=== PATIENT | male | born 1940 | race Caucasian/White ===

== ENCOUNTER 2020-08-13 07:30 | Inpatient (IN) | payer MEDICARE, MEDICAID, SELFPAY ==
[2020-08-13] VITALS (7 sets, daily range): BP systolic 110–153; BP diastolic 41–70; PULSE 77–108; RESP 15–17; TEMP 36.4–37.9; O2SAT 91–100; BMI 26.0
--- NOTE | 2020-08-13 07:42 | ECG_ITS ---
Test Reason : weakness Blood Pressure : / mmHG Vent. Rate : 108 BPM Atrial Rate : 108 BPM P-R Int : 148 ms QRS Dur : 080 ms QT Int : 344 ms P-R-T Axes : 078 092 082 degrees QTc Int : 460 ms Poor data quality Sinus tachycardia Right axis deviation Cannot rule out septal infarct Abnormal ECG When compared to the previous EKG of Criteria for septal infarct present Referred By: Keisha Goodwin Electronically Signed By:Jimmy Salmeron
--- NOTE | 2020-08-13 07:43 | XR_ITS ---
EXAMINATION: XR CHEST CLINICAL INFORMATION: Fever COMPARISON: 03/25/2020 TECHNIQUE: Frontal view of the chest was obtained. FINDINGS: No significant abnormality is noted involving the heart, lungs, mediastinum, bony thorax or soft tissues. XR/XR chest 1V IMPRESSION: Unremarkable examination.
--- NOTE | 2020-08-13 07:48 | ED_ITS ---
HPI - Skin/Abscess/Foreign Bdy General Chief complaint: Skin/Abscess/Foreign Body Stated complaint: CELLULITIS W/FEVER Time Seen by Provider: 08/13/20 07:41 Source: patient, EMS and old records reviewed Limitations: altered mental status (cognitive impairment) History of Present Illness HPI narrative: patient on keflex since 08/11 for facial cellulitis, this AM noted fevers and increased R sided facial swelling, more fatigued MD complaint: rash and other (fever) Onset (ago): day(s) (3) Tetanus up to date: yes Location: face Severity: moderate Quality: constant Pain Consistency: constant Relieving factors: none Exacerbating factors: none Context: none Associated symptoms: fever, chills and malaise Treatments prior to arrival: antibiotic (cephalexin started 08/11) Related Data Home Medications Medication Instructions Recorded Confirmed acetaminophen 325 mg PO BID 08/13/20 08/13/20 albuterol sulfate [ProAir HFA] 2 puff INHALATION BID 08/13/20 08/13/20 aspirin 81 mg PO DAILY 08/13/20 08/13/20 atorvastatin [Lipitor] 40 mg PO BEDTIME 08/13/20 08/13/20 cephalexin [Keflex] 500 mg PO TID 08/13/20 08/13/20 docusate sodium [Colace] 200 mg PO DAILY 08/13/20 08/13/20 glycerin [Artificial Tears drp OPHTHALMIC (EYE) PRN 08/13/20 (glycerin)] insulin aspart U-100 1 sliding scale dose SUBCUT 08/13/20 08/13/20 USEASDIRECTD lisinopril 10 mg PO DAILY 08/13/20 08/13/20 melatonin 3 mg PO BEDTIME 08/13/20 08/13/20 memantine 10 mg PO BID 08/13/20 08/13/20 metformin 1,000 mg PO BID 08/13/20 08/13/20 nutritional supplements [Adonay] ea PO 08/13/20 senna 8.6 mg PO DAILY 08/13/20 08/13/20 sertraline 75 mg PO DAILY 08/13/20 08/13/20 Allergies Allergy/AdvReac Type Severity Reaction Status Date / Time No Known Allergies Allergy Intermediate UNKNOWN Verified 08/13/20 07:56 [NO KNOWN ALLERGIES] Review of Systems Review of Systems: ROS unable to be obtained due to cognitive impairment [facility] Past Medical History Attestation statement: The following information was validated with the patient. Source: old records reviewed Medical History Cerebral infarction Cognitive communication deficit COPD (chronic obstructive pulmonary disease) Depressive disorder Diabetes Dysphagia Hearing loss Hemiplegia HTN (hypertension) Hyperlipemia Vascular dementia Social History Social History Housing: Alf Alcohol intake: unknown Smoking Status: Unknown if ever smoked Use of substances other than those prescribed or required for medical reasons: Unknown Advance Directives: No Advance Directives Information Provided: No Physical Exam Vital Signs: Vital Signs: Last Vital Signs Temp 100.3 F 08/13/20 07:47 Pulse 108 H 08/13/20 07:47 Resp 16 08/13/20 07:47 BP 126/57 L 08/13/20 07:47 Pulse Ox 91 L 08/13/20 07:47 Body Mass Index 26.0 Appearance: Alert. Oriented X2. No acute distress. Flat affect Eyes: Pupils equal, round and reactive to light. ENT: Pharynx normal. R side of face red raised confluent area from scalp to lower chin no abscess noted, no vesicles Neck: Normal inspection. Neck supple. CVS: Normal heart rate and rhythm. Pulses normal. Respiratory: No respiratory distress. Breath sounds normal. Abdomen: Soft and non-tender. Skin: Skin warm and dry. Normal skin color. Normal skin turgor. Extremities: No lower extremity edema. No calf ttp Neuro: Oriented X 3. No motor deficit. No sensory deficit. Course Course Course Narrative: will admit for further workup MDM - Skin/Abscess/Foreign Bdy MDM Narrative Medical decision making narrative: 80 yo male with hx of DM, CVA L sided weakness chronic, COPD here with fevers and worsening L sided facial cellulitis already on cephalexin since 08/11 at this time will need labs, UA, cultures, CXR, start IV zosyn/vancomycin and likely will need admission for IV antibiotics pending labs and workup Lab Data Result diagrams: 08/13/20 08:04 08/13/20 08:04 Labs: Lab Results 08/13/20 08/13/20 08/13/20 Range/Units 08:04 08:04 08:05 WBC 15.8 H (4.8-10.8) X10*3/uL RBC 5.27 (4.60-5.80) X10*6/uL Hgb 14.8 (14.0-18.0) g/dl Hct 46.3 (42-52) % MCV 87.9 (80-98) fL MCH 28.1 (27.0-33.0) pg MCHC 32.0 (31.0-36.0) g/dl RDW 13.1 (11.0-16.0) % Plt Count 233 (160-400) X10*3/uL MPV 10.7 (9.4-12.4) fL Immature Gran % (Auto) 0.5 H (0.0-0.4) % Neut % (Auto) 79.2 H (45-73) % Lymph % (Auto) 9.1 L (20-40) % [place] % (Auto) 10.9 (2-11) % Eos % (Auto) 0.0 (0-4) % Baso % (Auto) 0.3 (0-2) % Lymph # (Auto) 1.4 (1.2-4.9) X10*3/uL [place] # (Auto) 1.7 H (0.1-1.2) X10*3/uL Eos # (Auto) 0.0 (0.0-0.4) X10*3/uL Baso # (Auto) 0.0 (0.0-0.2) X10*3/uL Abs Immat Gran (auto) 0.08 H (0.00-0.03) X10*3/uL Absolute Neuts (auto) 12.5 H (2.0-8.3) X10*3/uL Absolute Nucleated RBC 0.000 (0.0-0.012) X10*3/uL Nucleated RBC % (auto) 0.0 (0.0-0.2) /100WBC Smear Tech's Comments VERIFIED PT (10.8-13.0) SEC INR (0.9-1.1) APTT (24.1-38.0) SEC Sodium 138 (135-145) mmol/L Potassium 3.8 (3.3-5.1) mmol/l Chloride 102 (96-108) mmol/L Carbon Dioxide 25 (22-29) mmol/L Anion Gap 15 (12-20) BUN 21 H (9-16) mg/dL Creatinine 0.82 (0.5-1.4) mg/dL Estim Creat Clear Calc 71.8 Estimated GFR > 60 Random Glucose 230 H (60-115) mg/dL Lactic Acid 1.3 (0.5-2.0) mmol/L Calcium 8.7 (8.4-10.2) mg/dL Magnesium (1.6-2.6) mg/dL Total Bilirubin (0.0-1.0) mg/dL Direct Bilirubin (0.0-0.5) mg/dL AST (5-37) U/L ALT (0-40) U/L Alkaline Phosphatase (39-117) U/L Total Protein (6.5-8.0) g/dL Albumin (3.5-5.0) g/dL COVID-19 ([facility]) (Negative) COVID-19 Clin Com 08/13/20 08/13/20 08/13/20 Range/Units 08:05 08:05 08:17 WBC (4.8-10.8) X10*3/uL RBC (4.60-5.80) X10*6/uL Hgb (14.0-18.0) g/dl Hct (42-52) % MCV (80-98) fL MCH (27.0-33.0) pg MCHC (31.0-36.0) g/dl RDW (11.0-16.0) % Plt Count (160-400) X10*3/uL MPV (9.4-12.4) fL Immature Gran % (Auto) (0.0-0.4) % Neut % (Auto) (45-73) % Lymph % (Auto) (20-40) % [place] % (Auto) (2-11) % Eos % (Auto) (0-4) % Baso % (Auto) (0-2) % Lymph # (Auto) (1.2-4.9) X10*3/uL [place] # (Auto) (0.1-1.2) X10*3/uL Eos # (Auto) (0.0-0.4) X10*3/uL Baso # (Auto) (0.0-0.2) X10*3/uL Abs Immat Gran (auto) (0.00-0.03) X10*3/uL Absolute Neuts (auto) (2.0-8.3) X10*3/uL Absolute Nucleated RBC (0.0-0.012) X10*3/uL Nucleated RBC % (auto) (0.0-0.2) /100WBC Smear Tech's Comments PT 13.4 H (10.8-13.0) SEC INR 1.1 (0.9-1.1) APTT 31.9 (24.1-38.0) SEC Sodium (135-145) mmol/L Potassium (3.3-5.1) mmol/l Chloride (96-108) mmol/L Carbon Dioxide (22-29) mmol/L Anion Gap (12-20) BUN (9-16) mg/dL Creatinine (0.5-1.4) mg/dL Estim Creat Clear Calc Estimated GFR Random Glucose (60-115) mg/dL Lactic Acid (0.5-2.0) mmol/L Calcium (8.4-10.2) mg/dL Magnesium 1.7 (1.6-2.6) mg/dL Total Bilirubin 0.9 (0.0-1.0) mg/dL Direct Bilirubin 0.4 (0.0-0.5) mg/dL AST 11 (5-37) U/L ALT 6 (0-40) U/L Alkaline Phosphatase 106 (39-117) U/L Total Protein 6.2 L (6.5-8.0) g/dL Albumin 3.8 (3.5-5.0) g/dL COVID-19 ([facility]) Negative (Negative) COVID-19 Clin Com See Note ECG Data Attestation: I personally reviewed and interpreted this ECG as follows: ECG interpretation date: 08/13/20 ECG interpretation time: 08:05 Interpretation: Rate: 109 Rhythm: sinus tachycardia [place]: rightward Normal P waves. Normal KAUR. Normal QRS complex. ST T wave : normal , no ARABELLA qTC: normal prior studies: artifact noted, no ischemia The study has been interpreted contemporaneously by me. . Discharge Plan Discharge Clinical Impression: Cellulitis, Leukocytosis Patient Disposition: Admitted As Inpatient Prescriptions: No Action acetaminophen 325 mg Tablet 325 mg PO BID RF: 0 atorvastatin [Lipitor] 40 mg Tablet 40 mg PO BEDTIME RF: 0 melatonin 3 mg Tablet 3 mg PO BEDTIME RF: 0 Adonay Powder PO RF: 0 insulin aspart U-100 100 unit/mL Solution 1 sliding scale dose SUBCUT USEASDIRECTD RF: 0 cephalexin [Keflex] 500 mg Capsule 500 mg PO TID RF: 0 metformin 1,000 mg Tablet 1,000 mg PO BID RF: 0 lisinopril 10 mg Tablet 10 mg PO DAILY RF: 0 docusate sodium [Colace] 100 mg Capsule 200 mg PO DAILY RF: 0 sertraline 25 mg Tablet 75 mg PO DAILY RF: 0 aspirin 81 mg Tablet,Chewable 81 mg PO DAILY RF: 0 albuterol sulfate [ProAir HFA] 90 mcg/actuation Hfa Aerosol Inhaler 2 puff INHALATION BID RF: 0 Artificial Tears (glycerin) Drops OPHTHALMIC (EYE) PRN (Reason: Dry Eyes) RF: 0 memantine 10 mg Tablet 10 mg PO BID RF: 0 senna 8.6 mg Capsule 8.6 mg PO DAILY RF: 0
[2020-08-13 08:14] LABS: Basophils Percent Auto 0.3 % (0-2); Hematocrit 46.3 % (42-52); Hemoglobin 14.8 g/dl (14.0-18.0); Imm Gran Abs Auto 0.08 X10*3/uL (0.00-0.03); Imm Gran Pct Auto 0.5 % (0.0-0.4); Lymphocytes Absolute Auto 1.4 X10*3/uL (1.2-4.9); Lymphocytes Percent Auto 9.1 % (20-40); MANUAL DIFF FLAG SCAN; Mean Corpuscular Hemoglobin 28.1 pg (27.0-33.0); Mean Corpuscular Volume 87.9 fL (80-98); Mean Platelet Volume 10.7 fL (9.4-12.4); Monocytes Absolute Auto 1.7 X10*3/uL (0.1-1.2); Monocytes Percent Auto 10.9 % (2-11); Neutrophils Absolute Auto 12.5 X10*3/uL (2.0-8.3); Neutrophils Percent Auto 79.2 % (45-73); Platelet Count 233 X10*3/uL (160-400); Red Blood Count 5.27 X10*6/uL (4.60-5.80); Red Cell Distribution Width 13.1 % (11.0-16.0); SCAN SMEAR FLAG 1; White Blood Count 15.8 X10*3/uL (4.8-10.8)
[2020-08-13 08:30] LABS: INTERNATIONAL NORM RATIO 1.1 (0.9-1.1); Prothrombin Time 13.4 SEC (10.8-13.0)
[2020-08-13] MEDS: 0.9 % Sodium Chloride 1,000 ML 999 ML IVCONT (08:31)
[2020-08-13 08:32] LABS: Partial Thromboplastin Time 31.9 SEC (24.1-38.0)
[2020-08-13] MEDS: Piperacillin Sodium/Tazobactam 3.375 GM in 0.9 % Sodium Chloride 50 ML IV (08:32)
[2020-08-13 08:36] LABS: Lactic Acid 1.3 mmol/L (0.5-2.0)
[2020-08-13 08:39] LABS: Anion Gap 15 (12-20); Blood Urea Nitrogen 21 mg/dL (9-16); Calcium 8.7 mg/dL (8.4-10.2); Carbon Dioxide 25 mmol/L (22-29); Chloride 102 mmol/L (96-108); Creatinine Clr Calc Pharmacy 71.8; Estimated Glomerular Filt Rate > 60; Glucose Random 230 mg/dL (60-115); Potassium 3.8 mmol/l (3.3-5.1); Sodium 138 mmol/L (135-145)
[2020-08-13 08:42] LABS: Alanine Aminotransferase 6 U/L (0-40); Albumin Level 3.8 g/dL (3.5-5.0); Alkaline Phosphatase 106 U/L (39-117); Aspartate Amino Transferase 11 U/L (5-37); Bilirubin Direct 0.4 mg/dL (0.0-0.5); Bilirubin Total 0.9 mg/dL (0.0-1.0); Magnesium 1.7 mg/dL (1.6-2.6); Total Protein 6.2 g/dL (6.5-8.0)
[2020-08-13 08:43] LABS: SLIDE REVIEW VERIFIED
[2020-08-13 08:46] LABS: COVID-19 Test Negative (Negative)
[2020-08-13] MEDS: vancomycin HCL 1,000 MG in 0.9 % Sodium Chloride 250 ML 270 MG IV (09:20)
--- NOTE | 2020-08-13 09:41 | PC.NURSE ---
Saline bolus completed, Vanco started. Pt now with eyes open, answering some questions asked. Med rec completed. BP stable
--- NOTE | 2020-08-13 12:44 | PM.IMHP ---
History of Present Illness Date of Service: 08/13/20 <Amber Barnes NP - Last Filed: 08/16/20 09:34> Chief Complaint: Facial cellulitis <Amber Barnes NP - Last Filed: 08/16/20 09:34> 80 year old man presenting from [facility] with redness and swelling to the right side of his face. He did not answer questions regarding the circumstances or presentation. He did have leukocytosis without fever, or noted abscess in his oral cavity or surrounding facial area. He was treated with Ceftriaxone for facial cellulitis. <Amber Barnes NP - Last Filed: 08/16/20 09:34> Review of Systems Review of Systems: Yes Unobtainable due to mental status <Amber Barnes NP - Last Filed: 08/16/20 09:34> FORMERLY [facility], [facility]–1983 Medical History: Medical History Cerebral infarction Cognitive communication deficit COPD (chronic obstructive pulmonary disease) Depressive disorder Diabetes Dysphagia Hearing loss Hemiplegia HTN (hypertension) Hyperlipemia Vascular dementia <Amber Barnes NP - Last Filed: 08/16/20 09:34> Social History: Social History Household Members: Caregiver Housing: Custodial Alcohol intake: unknown Smoking Status: Unknown if ever smoked Use of substances other than those prescribed or required for medical reasons: Refusing to respond Currently Displaying Signs/Symptoms of Drug Intoxication Withdrawal: No Advance Directives: No Advance Directives Information Provided: No Do you have thoughts of harming others: None Do you have a plan to hurt others: No Plan Recently lost weight without trying: Unsure service: No Current occupational status: disabled <Amber Barnes NP - Last Filed: 08/16/20 09:34> Meds Allergies/Adverse reactions: Allergies Allergy/AdvReac Type Severity Reaction Status Date / Time No Known Allergies Allergy Intermediate UNKNOWN Verified 08/13/20 07:56 [NO KNOWN ALLERGIES] <Amber Barnes NP - Last Filed: 08/16/20 09:34> Home medications: Home Medications Medication Instructions Recorded Confirmed Type acetaminophen 325 mg PO BID 08/13/20 08/13/20 History albuterol sulfate [ProAir HFA] 2 puff INHALATION BID 08/13/20 08/13/20 History aspirin 81 mg PO DAILY 08/13/20 08/13/20 History atorvastatin [Lipitor] 40 mg PO BEDTIME 08/13/20 08/13/20 History docusate sodium [Colace] 200 mg PO DAILY 08/13/20 08/13/20 History glycerin drp OPHTHALMIC (EYE) PRN 08/13/20 History insulin aspart U-100 1 sliding scale dose SUBCUT 08/13/20 08/13/20 History USEASDIRECTD lisinopril 10 mg PO DAILY 08/13/20 08/13/20 History melatonin 3 mg PO BEDTIME 08/13/20 08/13/20 History memantine 10 mg PO BID 08/13/20 08/13/20 History metformin 1,000 mg PO BID 08/13/20 08/13/20 History nutritional supplements ea PO 08/13/20 History senna 8.6 mg PO DAILY 08/13/20 08/13/20 History sertraline 75 mg PO DAILY 08/13/20 08/13/20 History <Amber Barnes NP - Last Filed: 08/16/20 09:34> Physical Exam Vital Signs and Narrative: Vital Signs: Last Vital Signs Temp 97.6 F 08/13/20 11:47 Pulse 89 08/13/20 11:47 Resp 16 08/13/20 11:47 BP 153/60 H 08/13/20 11:47 Pulse Ox 99 08/13/20 11:47 Body Mass Index 26.0 <Amber Barnes NP - Last Filed: 08/16/20 09:34> Appearing in pain head is normocephalic atraumatic, erythema and mild edema noted to right side of face, no abscess or papules noted. eyes pupils are PERRLA sclera is anicteric mouth throat mucous membranes are intact and moist neck is supple with some superficial cervical lymphedenopathy lung sounds are clear to auscultation heart regular rate rhythm, clear S1, S2 positive bowel sounds, abdomen is soft, nontender neuro patient is alert with baseline cognitive impairment <Amber Barnes NP - Last Filed: 08/16/20 09:34> Results Labs CBC and Chem 7: : 08/15/20 09:36 08/15/20 09:36 <Amber Barnes NP - Last Filed: 08/16/20 09:34> Labs: Laboratory Results - last 24 hr 08/13/20 08/13/20 08/13/20 08:04 08:04 08:05 MCV 87.9 MCH 28.1 MCHC 32.0 RDW 13.1 Plt Count 233 MPV 10.7 Immature Gran % (Auto) 0.5 H Neut % (Auto) 79.2 H Lymph % (Auto) 9.1 L [place] % (Auto) 10.9 Eos % (Auto) 0.0 Baso % (Auto) 0.3 Lymph # (Auto) 1.4 [place] # (Auto) 1.7 H Eos # (Auto) 0.0 Baso # (Auto) 0.0 Abs Immat Gran (auto) 0.08 H Absolute Neuts (auto) 12.5 H Absolute Nucleated RBC 0.000 Nucleated RBC % (auto) 0.0 Smear Tech's Comments VERIFIED PT INR APTT Anion Gap 15 Creatinine 0.82 Estim Creat Clear Calc 71.8 Estimated GFR > 60 Random Glucose 230 H Lactic Acid 1.3 Calcium 8.7 Magnesium Total Bilirubin Direct Bilirubin AST ALT Alkaline Phosphatase Total Protein Albumin COVID-19 ([facility]VNG) COVID-19 Clin Com 08/13/20 08/13/20 08/13/20 08:05 08:05 08:17 MCV MCH MCHC RDW Plt Count MPV Immature Gran % (Auto) Neut % (Auto) Lymph % (Auto) [place] % (Auto) Eos % (Auto) Baso % (Auto) Lymph # (Auto) [place] # (Auto) Eos # (Auto) Baso # (Auto) Abs Immat Gran (auto) Absolute Neuts (auto) Absolute Nucleated RBC Nucleated RBC % (auto) Smear Tech's Comments PT 13.4 H INR 1.1 APTT 31.9 Anion Gap Creatinine Estim Creat Clear Calc Estimated GFR Random Glucose Lactic Acid Calcium Magnesium 1.7 Total Bilirubin 0.9 Direct Bilirubin 0.4 AST 11 ALT 6 Alkaline Phosphatase 106 Total Protein 6.2 L Albumin 3.8 COVID-19 ([facility]VNG) Negative COVID-19 Clin Com See Note <Amber Barnes NP - Last Filed: 08/16/20 09:34> Imaging Radiologist's Impressions: Impressions Chest X-Ray 08/13/20 07:43 IMPRESSION: Unremarkable examination. <Amber Barnes NP - Last Filed: 08/16/20 09:34> Assessment and Plan (1) Cellulitis: Qualifiers: Site of cellulitis: face Qualified Code(s): L03.211 - Cellulitis of face <Amber Barnes NP - Last Filed: 08/16/20 09:34> Status: Resolved <Amber Barnes NP - Last Filed: 08/16/20 09:34> 80 year old man admitted with facial cellulitis Facial cellulitis. Vancomycin and zosyn, no sepsis. Follow cultures. Warm compress, pain management Diabetes. Sliding scale, ADA diet, metformin. Hypertension. Continue Lisinopril HLD. Continue aspirin and statin DVT Prophylaxis with Lovenox. Discussed with Dr. Bermeo Full code. <Amber Barnes NP - Last Filed: 08/16/20 09:34>
--- NOTE | 2020-08-13 15:27 | PM.EVENT ---
Event Note Date of Service: 08/13/20 Event Note: Patient seen and examined. Case discussed with Amber Barnes NP. Agree with her history and physical. 80 yo M from [facility] presenting with R facial erythema not resolved with PO Kelfex at SNF. Will admit for IV antibiotics. ID consult if not improved 1-2 days.
[2020-08-13] MEDS: cefTRIAXone sodium 1 GM in 0.9 % Sodium Chloride 50 ML IV (16:27)
[2020-08-13] MEDS: 0.9 % Sodium Chloride Flush 3 ML SYRINGE IVFLUSH ×2 (16:27→21:22)
[2020-08-13] MEDS: Enoxaparin Sodium 40 MG/0.4 ML SYRINGE SUBCUT (16:30)
[2020-08-13 16:42] LABS: Glucose, Whole Blood 177 mg/dL (60-115)
[2020-08-13] MEDS: Insulin Lispro 100 UNIT/ML 3 ML VIAL SUBCUT ×2 (17:56→21:22)
[2020-08-13] MEDS: metFORMIN HCl 1,000 MG TABLET 1000 MG PO (17:56)
[2020-08-13 21:08] LABS: Glucose, Whole Blood 205 mg/dL (60-115)
[2020-08-13] MEDS: Melatonin 3 MG TABLET PO (21:22)
[2020-08-13] MEDS: Atorvastatin Calcium 40 MG TABLET PO (21:22)
[2020-08-13] MEDS: Memantine HCl 10 MG TABLET PO (21:22)
[2020-08-14 04:04] VITALS: BP 151/79; PULSE 76; RESP 16; TEMP 36.3; O2SAT 95
[2020-08-14 06:53] LABS: MANUAL DIFF FLAG NO
[2020-08-14 06:55] VITALS: BP 151/69; PULSE 85; RESP 18; TEMP 37; O2SAT 94
[2020-08-14 07:09] LABS: Glucose, Whole Blood 161 mg/dL (60-115)
[2020-08-14 07:09] LABS: Basophils Percent Auto 0.3 % (0-2); Eosinophils Absolute Auto 0.3 X10*3/uL (0.0-0.4); Eosinophils Percent Auto 2.1 % (0-4); Hematocrit 43.8 % (42-52); Hemoglobin 13.6 g/dl (14.0-18.0); Imm Gran Abs Auto 0.06 X10*3/uL (0.00-0.03); Imm Gran Pct Auto 0.5 % (0.0-0.4); Lymphocytes Absolute Auto 1.6 X10*3/uL (1.2-4.9); Lymphocytes Percent Auto 12.6 % (20-40); Mean Corpuscular HGB Conc 31.1 g/dl (31.0-36.0); Mean Corpuscular Hemoglobin 28.1 pg (27.0-33.0); Mean Corpuscular Volume 90.5 fL (80-98); Monocytes Absolute Auto 1.2 X10*3/uL (0.1-1.2); Monocytes Percent Auto 9.1 % (2-11); Neutrophils Absolute Auto 9.5 X10*3/uL (2.0-8.3); Neutrophils Percent Auto 75.4 % (45-73); Platelet Count 218 X10*3/uL (160-400); Red Blood Count 4.84 X10*6/uL (4.60-5.80); Red Cell Distribution Width 13.2 % (11.0-16.0); White Blood Count 12.7 X10*3/uL (4.8-10.8)
[2020-08-14 07:24] LABS: Anion Gap 13 (12-20); Blood Urea Nitrogen 18 mg/dL (9-16); Calcium 8.6 mg/dL (8.4-10.2); Carbon Dioxide 28 mmol/L (22-29); Chloride 103 mmol/L (96-108); Creatinine Clr Calc Pharmacy 80.7; Estimated Glomerular Filt Rate > 60; Glucose Random 164 mg/dL (60-115); Potassium 3.8 mmol/l (3.3-5.1); Sodium 140 mmol/L (135-145)
[2020-08-14] MEDS: Insulin Lispro 100 UNIT/ML 3 ML VIAL SUBCUT ×4 (07:49→20:50)
[2020-08-14] MEDS: Aspirin 81 MG TAB.CHEW PO (07:51)
[2020-08-14] MEDS: metFORMIN HCl 1,000 MG TABLET 1000 MG PO ×2 (07:51→16:55)
[2020-08-14] MEDS: Sertraline HCL 25 MG TABLET 75 MG PO (07:52)
[2020-08-14] MEDS: Memantine HCl 10 MG TABLET PO ×2 (07:52→20:50)
[2020-08-14] MEDS: lisinopriL 10 MG TABLET PO (07:52)
--- NOTE | 2020-08-14 08:20 | HO.PM.IMPN ---
Subjective Subjective Date of Service: 08/14/20 Interval History: seen and examined this AM feels lousy but looks okay. eating breakfast ROS gen - +malaise [facility] - no cp lungs - no sob abd - no n/v Physical Exam Vital Signs: Vital Signs: Last Vital Signs Temp 98.6 F 08/14/20 06:55 Pulse 85 08/14/20 06:55 Resp 18 08/14/20 06:55 BP 151/69 H 08/14/20 06:55 Pulse Ox 94 08/14/20 06:55 Body Mass Index 26.0 Const: Other: General - no acute distress, appears comfortable Cardiovascular - regular rate and rhythm, S1-S2 Lungs - normal respiratory effort, clear to auscultation bilaterally, no wheezing Abdomen - soft, nontender, no rebound or guarding Extremities - no edema bilaterally Neuro - awake and alert, no focal deficits Skin - R facial erythema with demarcation -- significantly improved compared to yesterday HENMT: Head images: 1. erythema with clear demarcation Objective Data Current Medications Generic Name Dose Route Start Last Admin Trade Name Oswaldoq PRN Reason Stop Dose Admin Acetaminophen 650 mg 08/13/20 14:26 Acetaminophen 325 Mg Tablet PO Q6H PRN Pain, Mild (Pain Scale 1-3) Albuterol Sulfate 2 puff 08/13/20 21:00 08/14/20 07:30 Albuterol Sulfate 90 Mcg 8 Gm Inhaler INHALE Not Given BID MATTY Aspirin 81 mg 08/14/20 09:00 08/14/20 07:51 Aspirin 81 Mg Tab.Chew PO 81 mg DAILY MATTY Administration Atorvastatin Calcium 40 mg 08/13/20 21:00 08/13/20 21:22 Atorvastatin Calcium 40 Mg Tablet PO 40 mg BEDTIME MATTY Administration Docusate Sodium 200 mg 08/14/20 09:00 08/14/20 07:57 Docusate Sodium 100 Mg Capsule PO Not Given DAILY MATTY Enoxaparin Sodium 40 mg 08/13/20 16:00 08/13/20 16:30 Enoxaparin Sodium 40 Mg/0.4 Ml Syringe SUBCUT 40 mg Q24H MATTY Administration Ceftriaxone Sodium 1 gm/ 50 mls @ 100 mls/hr 08/13/20 16:00 08/13/20 16:57 Sodium Chloride IV Infused Q24H [facility] Infusion Insulin Human Lispro 0 unit 08/13/20 16:30 08/14/20 07:49 Insulin Lispro 100 Unit/Ml 3 Ml Vial SUBCUT 2 unit QIDACHS [facility] Administration Protocol Lisinopril 10 mg 08/14/20 09:00 08/14/20 07:52 Lisinopril 10 Mg Tablet PO 10 mg DAILY MATTY Administration Protocol Melatonin 3 mg 08/13/20 21:00 08/13/20 21:22 Melatonin 3 Mg Tablet PO 3 mg BEDTIME MATTY Administration Memantine 10 mg 08/13/20 21:00 08/14/20 07:52 Memantine Hcl 10 Mg Tablet PO 10 mg BID MATTY Administration Metformin HCl 1,000 mg 08/13/20 17:00 08/14/20 07:51 Metformin Hcl 1,000 Mg Tablet PO 1,000 mg BIDWM MATTY Administration Morphine Sulfate 2 mg 08/13/20 14:26 Morphine Sulfate 2 Mg/Ml Cartridge IM Q4H PRN Pain, Severe (Pain Scale 7-10) Ondansetron HCl 4 mg 08/13/20 14:26 Ondansetron Hcl 4 Mg/2 Ml Vial IVPUSH Q8H PRN Nausea and Vomiting Pharmacy Consult 1 each 08/13/20 07:41 Consult Rx Perform Med Rec MISCELLANE ONCE PRN Consult order Pharmacy Consult 1 each 08/13/20 07:41 Consult Rx Vancomycin Dosing MISCELLANE DAILY PRN Consult order Pharmacy Consult 1 each 08/13/20 14:26 Consult Rx Vancomycin Dosing MISCELLANE DAILY PRN Consult order Sertraline HCl 75 mg 08/14/20 09:00 08/14/20 07:52 Sertraline Hcl 25 Mg Tablet PO 75 mg DAILY MATTY Administration Sodium Chloride 3 ml 08/13/20 16:00 08/13/20 21:22 0.9 % Sodium Chloride Flush 3 Ml Syringe IVFLUSH 3 ml QSHIFT MATTY Administration Labs CBC & Chem 7: 08/14/20 06:31 08/14/20 06:31 Assessment and Plan (1) Cellulitis: Status: Acute (2) Erysipelas: Status: Acute Assessment and Plan: This is a 80 yo M who is a [facility] who presented to the hospital with R-sided erythema, low grade temps and leukocytosis which had not resolved with 1 week of PO keflex at [facility]. He was admitted for further treatment. 1. Facial cellulitis / erysipelas improved continue rocephin f/u cultures 2. DM continue metformin + sliding scale diabetic diet 3. HTN bp stable, continue home meds 4. Dementia continue Namenda 5. Mood continue zoloft Full Code DVT pptx, lovenox
--- NOTE | 2020-08-14 09:25 | MHC.CM.PN ---
PATIENT IS A RESIDENT AT [facility]. DUSTIN IN HISTORICAL VISITS NO HCP OR GUARDIANSHIP IN ELECTRONIC OR PAPER CHART. CASE MANAGEMENT FOLLOWING FOR PATIENT'S RETURN TO FACILITY. CALL TO BE PLACED TO FACILITY TO DETERMINE IF ANY [facility] DIRECTIVES DOCUMENTATION EXISTS, AND TO DISCUSS IMM
--- NOTE | 2020-08-14 09:46 | MHC.CM.PN ---
POWER CONVERSATION WITH [facility], RN, SUKHDEEP ([phone]), PATIENT DOES NOT HAVE A GUARDIAN OR HCP AGENT. HE HAS AN EMERGENCY CONTACT. IF DURING STAY, PATINT IS ABLE TO COMPLETE A HCP, CM WILL ASSIST. SUKHDEEP AGREES WITH PLAN. IMM DISCUSSED WITH SUKHDEEP. COPY AND ADDENDUM IN CHART ORIGINAL WITH PATIENT'S BELONGINGS TO RETURN TO FACILITY PER REQUEST. IMM 08/14
[2020-08-14 10:50] VITALS: BP 133/68; PULSE 98; RESP 18; TEMP 36.8; O2SAT 94
[2020-08-14 10:59] LABS: Glucose, Whole Blood 189 mg/dL (60-115)
[2020-08-14] MEDS: 0.9 % Sodium Chloride Flush 3 ML SYRINGE IVFLUSH ×2 (11:39→15:22)
--- NOTE | 2020-08-14 14:34 | PC.NURSE ---
pt very restless, refusing to stay in bed or chair, not easily redirected, unsteady on his feet, continually stating I want to leave the room, generally non compliant. Incontinent of stool on the floor and urine in the bed. Spilling liquids and food on floor. canvas goods supervisor notified. sitter placed in room.
[2020-08-14] MEDS: cefTRIAXone sodium 1 GM in 0.9 % Sodium Chloride 50 ML IV (15:22)
[2020-08-14 15:42] VITALS: BP 149/79; PULSE 101; RESP 18; TEMP 37; O2SAT 95
[2020-08-14 16:50] LABS: Glucose, Whole Blood 180 mg/dL (60-115)
[2020-08-14] MEDS: Enoxaparin Sodium 40 MG/0.4 ML SYRINGE SUBCUT (16:54)
[2020-08-14 19:38] VITALS: BP 153/79; PULSE 84; RESP 18; TEMP 36.6; O2SAT 94
[2020-08-14 20:41] LABS: Vancomycin Trough < 3.0 mcg/mL (10.0-20.0)
[2020-08-14 20:44] LABS: Glucose, Whole Blood 191 mg/dL (60-115)
[2020-08-14] MEDS: Atorvastatin Calcium 40 MG TABLET PO (20:50)
[2020-08-14] MEDS: Melatonin 3 MG TABLET PO (20:50)
[2020-08-15] VITALS (8 sets, daily range): BP systolic 98–177; BP diastolic 60–78; PULSE 77–109; RESP 16–20; TEMP 36.1–36.7; O2SAT 95–99
[2020-08-15] MEDS: Albuterol Sulfate 90 MCG 8 GM INHALER 2 PUFF INHALE (07:21)
[2020-08-15] MEDS: Aspirin 81 MG TAB.CHEW PO (07:58)
[2020-08-15 07:59] LABS: Glucose, Whole Blood 185 mg/dL (60-115)
[2020-08-15] MEDS: metFORMIN HCl 1,000 MG TABLET 1000 MG PO ×2 (07:59→17:14)
[2020-08-15] MEDS: lisinopriL 10 MG TABLET PO (07:59)
[2020-08-15] MEDS: Memantine HCl 10 MG TABLET PO (07:59)
[2020-08-15] MEDS: Docusate Sodium 100 MG CAPSULE 200 MG PO (07:59)
[2020-08-15] MEDS: Sertraline HCL 25 MG TABLET 75 MG PO (08:03)
[2020-08-15] MEDS: Insulin Lispro 100 UNIT/ML 3 ML VIAL SUBCUT ×4 (08:04→21:52)
[2020-08-15] MEDS: 0.9 % Sodium Chloride Flush 3 ML SYRINGE IVFLUSH ×2 (08:07→16:23)
--- NOTE | 2020-08-15 08:45 | HO.PM.IMPN ---
Subjective Subjective Date of Service: 08/15/20 Interval History: seen and examined this AM not talking much today, eating breakfast bp low, but doesnt have symptoms Physical Exam Vital Signs: Vital Signs: Last Vital Signs Temp 97.7 F 08/15/20 07:35 Pulse 109 H 08/15/20 07:59 Resp 16 08/15/20 07:35 BP 98/61 08/15/20 07:59 Pulse Ox 96 08/15/20 07:35 Body Mass Index 26.0 Const: Other: General - no acute distress, appears comfortable Cardiovascular - regular rate and rhythm, S1-S2 Lungs - normal respiratory effort, clear to auscultation bilaterally, no wheezing Abdomen - soft, nontender, no rebound or guarding Extremities - no edema bilaterally Neuro - awake and alert, no focal deficits Skin - R facial erythema with clear demarcation -- improving daily Objective Data Current Medications Generic Name Dose Route Start Last Admin Trade Name Freq PRN Reason Stop Dose Admin Acetaminophen 650 mg 08/13/20 14:26 Acetaminophen 325 Mg Tablet PO Q6H PRN Pain, Mild (Pain Scale 1-3) Albuterol Sulfate 2 puff 08/14/20 20:00 08/15/20 07:21 Albuterol Sulfate 90 Mcg 8 Gm Inhaler INHALE 2 puff RBID MATTY Administration Aspirin 81 mg 08/14/20 09:00 08/15/20 07:58 Aspirin 81 Mg Tab.Chew PO 81 mg DAILY MATTY Administration Atorvastatin Calcium 40 mg 08/13/20 21:00 08/14/20 20:50 Atorvastatin Calcium 40 Mg Tablet PO 40 mg BEDTIME MATTY Administration Docusate Sodium 200 mg 08/14/20 09:00 08/15/20 07:59 Docusate Sodium 100 Mg Capsule PO 200 mg DAILY MATTY Administration Enoxaparin Sodium 40 mg 08/13/20 16:00 08/14/20 16:54 Enoxaparin Sodium 40 Mg/0.4 Ml Syringe SUBCUT 40 mg Q24H MATTY Administration Ceftriaxone Sodium 1 gm/ 50 mls @ 100 mls/hr 08/13/20 16:00 08/14/20 15:52 Sodium Chloride IV Infused Q24H MATTY Infusion Insulin Human Lispro 0 unit 08/13/20 16:30 08/15/20 08:04 Insulin Lispro 100 Unit/Ml 3 Ml Vial SUBCUT 2 unit QIDACHS MATTY Administration Protocol Melatonin 3 mg 08/13/20 21:00 08/14/20 20:50 Melatonin 3 Mg Tablet PO 3 mg BEDTIME MATTY Administration Memantine 10 mg 08/13/20 21:00 08/15/20 07:59 Memantine Hcl 10 Mg Tablet PO 10 mg BID MATTY Administration Metformin HCl 1,000 mg 08/13/20 17:00 08/15/20 07:59 Metformin Hcl 1,000 Mg Tablet PO 1,000 mg BIDWM MATTY Administration Morphine Sulfate 2 mg 08/13/20 14:26 Morphine Sulfate 2 Mg/Ml Cartridge IM Q4H PRN Pain, Severe (Pain Scale 7-10) Ondansetron HCl 4 mg 08/13/20 14:26 Ondansetron Hcl 4 Mg/2 Ml Vial IVPUSH Q8H PRN Nausea and Vomiting Pharmacy Consult 1 each 08/13/20 07:41 Consult Rx Perform Med Rec MISCELLANE ONCE PRN Consult order Pharmacy Consult 1 each 08/13/20 07:41 Consult Rx Vancomycin Dosing MISCELLANE DAILY PRN Consult order Pharmacy Consult 1 each 08/13/20 14:26 Consult Rx Vancomycin Dosing MISCELLANE DAILY PRN Consult order Sertraline HCl 75 mg 08/14/20 09:00 08/15/20 08:03 Sertraline Hcl 25 Mg Tablet PO 75 mg DAILY MATTY Administration Sodium Chloride 3 ml 08/13/20 16:00 08/15/20 08:07 0.9 % Sodium Chloride Flush 3 Ml Syringe IVFLUSH 3 ml QSHIFT MATTY Administration Labs CBC & Chem 7: 08/14/20 06:31 08/14/20 06:31 Microbiology Microbiology Results: Microbiology 08/13/20 08:27 Blood - Venous Blood Culture - Preliminary No growth after 24 hours. 08/13/20 08:17 Blood - Venous Blood Culture - Preliminary No growth after 24 hours. Assessment and Plan (1) Cellulitis: Status: Acute (2) Erysipelas: Status: Acute Assessment and Plan: This is a 80 yo M who is a resident of [facility] who presented to the hospital with R-sided erythema, low grade temps and leukocytosis which had not resolved with 1 week of PO keflex at [facility]. He was admitted for further treatment. 1. Facial cellulitis / erysipelas improved continue rocephin f/u cultures - negative to date 2. DM continue metformin + sliding scale diabetic diet 3. HTN BP soft, hold antihypertensives today 4. Dementia continue Namenda 5. Mood continue zoloft Full Code DVT pptx, lovenox dispo: back to [facility], anticipated next 24 hours if he continues to improve
[2020-08-15 09:44] LABS: Hematocrit 44.4 % (42-52); Hemoglobin 14.2 g/dl (14.0-18.0); Mean Corpuscular Hemoglobin 28.1 pg (27.0-33.0); Mean Corpuscular Volume 87.9 fL (80-98); Mean Platelet Volume 10.6 fL (9.4-12.4); Platelet Count 246 X10*3/uL (160-400); Red Blood Count 5.05 X10*6/uL (4.60-5.80); Red Cell Distribution Width 13.2 % (11.0-16.0); White Blood Count 11.1 X10*3/uL (4.8-10.8)
[2020-08-15 10:09] LABS: Anion Gap 12 (12-20); Blood Urea Nitrogen 13 mg/dL (9-16); Calcium 8.5 mg/dL (8.4-10.2); Carbon Dioxide 27 mmol/L (22-29); Chloride 102 mmol/L (96-108); Creatinine Clr Calc Pharmacy 86.6; Estimated Glomerular Filt Rate > 60; Glucose Random 255 mg/dL (60-115); Potassium 3.2 mmol/l (3.3-5.1); Sodium 138 mmol/L (135-145)
[2020-08-15 11:56] LABS: Glucose, Whole Blood 207 mg/dL (60-115)
[2020-08-15] MEDS: cefTRIAXone sodium 1 GM in 0.9 % Sodium Chloride 50 ML IV (16:23)
[2020-08-15] MEDS: Enoxaparin Sodium 40 MG/0.4 ML SYRINGE SUBCUT (16:24)
[2020-08-15 17:10] LABS: Glucose, Whole Blood 183 mg/dL (60-115)
[2020-08-15 20:29] LABS: Glucose, Whole Blood 164 mg/dL (60-115)
[2020-08-16 04:00] VITALS: BP 144/70; PULSE 103; RESP 18; TEMP 37.1; O2SAT 95
[2020-08-16 07:16] VITALS: BP 175/92; PULSE 111; RESP 18; TEMP 36.8; O2SAT 98
[2020-08-16 07:43] LABS: Glucose, Whole Blood 163 mg/dL (60-115)
[2020-08-16] MEDS: Insulin Lispro 100 UNIT/ML 3 ML VIAL SUBCUT ×2 (08:26→11:51)
[2020-08-16] MEDS: Docusate Sodium 100 MG CAPSULE 200 MG PO (08:27)
[2020-08-16] MEDS: metFORMIN HCl 1,000 MG TABLET 1000 MG PO (08:27)
[2020-08-16] MEDS: Sertraline HCL 25 MG TABLET 75 MG PO (08:27)
[2020-08-16] MEDS: Memantine HCl 10 MG TABLET PO (08:27)
[2020-08-16] MEDS: 0.9 % Sodium Chloride Flush 3 ML SYRINGE IVFLUSH (08:27)
[2020-08-16] MEDS: Aspirin 81 MG TAB.CHEW PO (08:27)
--- NOTE | 2020-08-16 09:20 | MHC.CM.PN ---
Updates set to [facility] [place] to coordinate pt return to them. They will need an updated Covid test. notified. Pt will DC back to [facility] [place] via S
--- NOTE | 2020-08-16 10:26 | MHC.CM.PN ---
NURSE ANIRUDH CELERY STRIPPER NOTE ELECTRONIC MEDICAL RECORD REVIEWED PATIENT IS FROM [facility] [place] . HE PRESENTED TO THE [facility] WITH CELLULITIS AND ERYSIIPALES ON THE FACE , HERRON AWAIT CX REPORTS CONTINUE IV ROCEPHIN. DISCHARGE PLAN TO RETURN BACK TO [facility] TRANSPORTATION ANTICIPATE NEED FOR [facility]
[2020-08-16 11:24] VITALS: BP 160/66; PULSE 100; RESP 18; TEMP 36.6; O2SAT 94
[2020-08-16 11:33] LABS: Glucose, Whole Blood 211 mg/dL (60-115)
[2020-08-16 12:24] LABS: COVID-19 Test Negative (Negative)
--- NOTE | 2020-08-16 13:32 | P.DS_ITS ---
DS: Providers Provider Date of admission: 08/13/20 12:47 Primary care physician: Taras Prescott DO DS: Diagnosis Discharge Diagnosis (1) Cellulitis: Status: Acute (2) Erysipelas: Status: Acute (3) Leukocytosis: Status: Acute DS: Medications Discharge Medications Home Medications: Home Medications Medication Instructions Recorded Confirmed acetaminophen 325 mg PO BID 08/13/20 08/13/20 albuterol sulfate [ProAir HFA] 2 puff INHALATION BID 08/13/20 08/13/20 aspirin 81 mg PO DAILY 08/13/20 08/13/20 atorvastatin [Lipitor] 40 mg PO BEDTIME 08/13/20 08/13/20 docusate sodium [Colace] 200 mg PO DAILY 08/13/20 08/13/20 glycerin drp OPHTHALMIC (EYE) PRN 08/13/20 insulin aspart U-100 1 sliding scale dose SUBCUT 08/13/20 08/13/20 USEASDIRECTD lisinopril 10 mg PO DAILY 08/13/20 08/13/20 melatonin 3 mg PO BEDTIME 08/13/20 08/13/20 memantine 10 mg PO BID 08/13/20 08/13/20 metformin 1,000 mg PO BID 08/13/20 08/13/20 nutritional supplements ea PO 08/13/20 senna 8.6 mg PO DAILY 08/13/20 08/13/20 sertraline 75 mg PO DAILY 08/13/20 08/13/20 Previous Rx's Medication Instructions Recorded cefuroxime axetil 500 mg PO BID #8 tab 08/16/20 DS: Summary Hospital Course Hospital Course: Admission note HPI 80 year old man presenting from [facility] with redness and swelling to the right side of his face. He did not answer questions regarding the circumstances or presentation. He did have leukocytosis without fever, or noted abscess in his oral cavity or surrounding facial area. He was treated with Ceftriaxone for facial cellulitis. Hospital course The patient was admitted to the hospital and treated with broad-spectrum IV antibiotics which was then changed to ceftriaxone the with good response over the course of hospital stay as the facial cellulitis completely resolved and he was able to participate with diet. No fever noticed since admission. to be discharged on Ceftin and doxycycline for 4 days. Time Spent with Patient Time attestation: Total time spent providing and/or coordinating discharge services: Physical Exam Vital Signs: Vital Signs: Last Vital Signs Temp 97.9 F 08/16/20 11:24 Pulse 100 08/16/20 11:24 Resp 18 08/16/20 11:24 BP 160/66 H 08/16/20 11:24 Pulse Ox 94 08/16/20 11:24 Body Mass Index 26.0 Constitutional : Alert, oriented to self, not in distress Neck : Normal inspection, Supple Cardiovascular : RRR, S1 S2, no lower extremity edema Respiratory : Good bilateral air entry, no crackles, wheezes or rhonchi Gastrointestinal: soft, lax, Normal bowel sounds, Non tender Skin : Warm/Dry, No rash Neurological : Alert & oriented to self, No focal deficit DS: Data Data Completed and Pending Labs on day of discharge: 08/13/20 07:41 Acetaminophen [Tylenol] 650 mg OH ONCE ONE Piperacillin Sodium/Tazobactam [Zosyn] 3.375 gm 0.9 % Sodium Chloride [Ns] 50 ml IV ONCE vancomycin HCL 1,000 mg 0.9 % Sodium Chloride [Ns] 250 ml IV ONCE 08/13/20 07:42 ECG 12 lead EKG Stat EKG Documentation DIRECTED 08/13/20 07:43 XR chest 1V Stat 08/13/20 07:45 0.9 % Sodium Chloride [Ns] 1,000 ml IVCONT 999 mls/hr 08/13/20 08:04 Basic Metabolic Panel Stat Complete Blood Count Auto Diff Stat SLIDE REVIEW Stat 08/13/20 08:05 COVID-19 ID NOW (Barry) Stat Lactic Acid Stat Liver Panel Stat Magnesium Stat 08/13/20 08:17 Partial Thromboplastin Time Stat Prothrombin Time INR Stat 08/13/20 08:21 Piperacillin Sodium/Tazobactam [Zosyn] 3.375 gm IV .STK-MED ONE 08/13/20 09:11 vancomycin HCL 1,000 mg .ROUTE .STK-MED ONE 08/13/20 12:44 Transfer Order Routine 08/13/20 14:26 IV insert/maintain Q4HR Intake and Output QSHIFTE Vital Signs QSHIFT 08/13/20 15:00 Piperacillin Sodium/Tazobactam [Zosyn] 3.375 gm 0.9 % Sodium Chloride [Ns] 50 ml IV Q8H 08/13/20 16:20 cefTRIAXone sodium [Rocephin] 1 gm .ROUTE .STK-MED ONE 08/13/20 16:27 Glucose, Whole Blood Routine 08/13/20 21:00 Albuterol Sulfate [Ventolin] 2 puff INHALE BID vancomycin HCL 750 mg IV Q12H 08/13/20 21:03 Glucose, Whole Blood Routine 08/14/20 06:31 Basic Metabolic Panel DAILY@0600 Complete Blood Count Auto Diff DAILY@0600 08/14/20 07:05 Glucose, Whole Blood Routine 08/14/20 09:00 lisinopriL [Zestril] 10 mg PO DAILY 08/14/20 10:54 Glucose, Whole Blood Routine 08/14/20 15:19 cefTRIAXone sodium [Rocephin] 1 gm .ROUTE .STK-MED ONE 08/14/20 16:44 Glucose, Whole Blood Routine 08/14/20 19:57 Vancomycin Trough Stat 08/14/20 20:39 Glucose, Whole Blood Routine 08/15/20 07:37 Glucose, Whole Blood Routine 08/15/20 09:36 Basic Metabolic Panel Routine Complete Blood Count no Diff Routine 08/15/20 11:30 Glucose, Whole Blood Routine 08/15/20 16:12 cefTRIAXone sodium [Rocephin] 1 gm .ROUTE .STK-MED ONE 08/15/20 16:43 Glucose, Whole Blood Routine 08/15/20 20:26 Glucose, Whole Blood Routine 08/16/20 07:25 Glucose, Whole Blood Routine 08/16/20 11:30 Glucose, Whole Blood Routine 08/16/20 11:45 COVID-19 ID NOW (Barry) Routine Laboratory Last Values WBC 11.1 X10*3/uL (4.8-10.8) H 08/15/20 09:36 RBC 5.05 X10*6/uL (4.60-5.80) 08/15/20 09:36 Hgb 14.2 g/dl (14.0-18.0) 08/15/20 09:36 Hct 44.4 % (42-52) 08/15/20 09:36 MCV 87.9 fL (80-98) 08/15/20 09:36 MCH 28.1 pg (27.0-33.0) 08/15/20 09:36 MCHC 32.0 g/dl (31.0-36.0) 08/15/20 09:36 RDW 13.2 % (11.0-16.0) 08/15/20 09:36 Plt Count 246 X10*3/uL (160-400) 08/15/20 09:36 MPV 10.6 fL (9.4-12.4) 08/15/20 09:36 Immature Gran % (Auto) 0.5 % (0.0-0.4) H 08/14/20 06:31 Neut % (Auto) 75.4 % (45-73) H 08/14/20 06:31 Lymph % (Auto) 12.6 % (20-40) L 08/14/20 06:31 Dickinson % (Auto) 9.1 % (2-11) 08/14/20 06:31 Eos % (Auto) 2.1 % (0-4) 08/14/20 06:31 Baso % (Auto) 0.3 % (0-2) 08/14/20 06:31 Lymph # (Auto) 1.6 X10*3/uL (1.2-4.9) 08/14/20 06:31 Dickinson # (Auto) 1.2 X10*3/uL (0.1-1.2) 08/14/20 06:31 Eos # (Auto) 0.3 X10*3/uL (0.0-0.4) 08/14/20 06:31 Baso # (Auto) 0.0 X10*3/uL (0.0-0.2) 08/14/20 06:31 Abs Immat Gran (auto) 0.06 X10*3/uL (0.00-0.03) H 08/14/20 06:31 Absolute Neuts (auto) 9.5 X10*3/uL (2.0-8.3) H 08/14/20 06:31 Absolute Nucleated RBC 0.000 X10*3/uL (0.0-0.012) 08/15/20 09:36 Nucleated RBC % (auto) 0.0 /100WBC (0.0-0.2) 08/15/20 09:36 Smear Tech's Comments VERIFIED 08/13/20 08:04 PT 13.4 SEC (10.8-13.0) H 08/13/20 08:17 INR 1.1 (0.9-1.1) 08/13/20 08:17 APTT 31.9 SEC (24.1-38.0) 08/13/20 08:17 Sodium 138 mmol/L (135-145) 08/15/20 09:36 Potassium 3.2 mmol/l (3.3-5.1) L 08/15/20 09:36 Chloride 102 mmol/L (96-108) 08/15/20 09:36 Carbon Dioxide 27 mmol/L (22-29) 08/15/20 09:36 Anion Gap 12 (-20) 08/15/20 09:36 BUN 13 mg/dL (9-16) 08/15/20 09:36 Creatinine 0.68 mg/dL (0.5-1.4) 08/15/20 09:36 Estim Creat Clear Calc 86.6 08/15/20 09:36 Estimated GFR > 60 08/15/20 09:36 POC Glucose 211 mg/dL (60-115) H 08/16/20 11:30 Random Glucose 255 mg/dL (60-115) H D 08/15/20 09:36 Lactic Acid 1.3 mmol/L (0.5-2.0) 08/13/20 08:05 Calcium 8.5 mg/dL (8.4-10.2) 08/15/20 09:36 Magnesium 1.7 mg/dL (1.6-2.6) 08/13/20 08:05 Total Bilirubin 0.9 mg/dL (0.0-1.0) 08/13/20 08:05 Direct Bilirubin 0.4 mg/dL (0.0-0.5) 08/13/20 08:05 AST 11 U/L (5-37) 08/13/20 08:05 ALT 6 U/L (0-40) 08/13/20 08:05 Alkaline Phosphatase 106 U/L (39-117) 08/13/20 08:05 Total Protein 6.2 g/dL (6.5-8.0) L 08/13/20 08:05 Albumin 3.8 g/dL (3.5-5.0) 08/13/20 08:05 Vancomycin Trough < 3.0 mcg/mL (10.0-20.0) L 08/14/20 19:57 COVID-19 ([facility]) Negative (Negative) 08/16/20 11:45 COVID-19 Clin Com See Note 08/16/20 11:45 Preliminary micro results at discharge 08/13/20 08:27 Blood Culture - Preliminary Blood - Venous No growth after 48 hours. 08/13/20 08:17 Blood Culture - Preliminary Blood - Venous No growth after 48 hours. Discharge Plan Discharge Patient Disposition: er [facility] Referrals: Taras Prescott DO [Primary Care Provider] - Discharge Medications: New cefuroxime axetil 500 mg tablet 500 mg PO BID Qty: 8 RF: 0 Continued acetaminophen 325 mg Tablet 325 mg PO BID RF: 0 atorvastatin [Lipitor] 40 mg Tablet 40 mg PO BEDTIME RF: 0 melatonin 3 mg Tablet 3 mg PO BEDTIME RF: 0 nutritional supplements Powder PO RF: 0 insulin aspart U-100 100 unit/mL Solution 1 sliding scale dose SUBCUT USEASDIRECTD RF: 0 metformin 1,000 mg Tablet 1,000 mg PO BID RF: 0 lisinopril 10 mg Tablet 10 mg PO DAILY RF: 0 docusate sodium [Colace] 100 mg Capsule 200 mg PO DAILY RF: 0 sertraline 25 mg Tablet 75 mg PO DAILY RF: 0 aspirin 81 mg Tablet,Chewable 81 mg PO DAILY RF: 0 albuterol sulfate [ProAir HFA] 90 mcg/actuation Hfa Aerosol Inhaler 2 puff INHALATION BID RF: 0 glycerin Drops OPHTHALMIC (EYE) PRN (Reason: Dry Eyes) RF: 0 memantine 10 mg Tablet 10 mg PO BID RF: 0 senna 8.6 mg Capsule 8.6 mg PO DAILY RF: 0 Discontinued cephalexin [Keflex] 500 mg Capsule 500 mg PO TID RF: 0 Discharge Orders: Discharge Order (Routine); Ordered 08/16/20 Ordered By: Alta Beth Diet: advance to usual diet Activity on Discharge: As tolerated Visit Report Forms: Patient Portal Discharge page Care Plan Goals: Read below Health Concerns: Read below Plan of Treatment: Treated in the hospital for facial cellulitis with IV antibiotics and good response. To continue with Ceftin for 4 more days at time of discharge.
--- NOTE | 2020-08-16 13:57 | MHC.CM.PN ---
PT BEING DISCHARGED BACK TO [facility] [place] TODAY AT 1430 [facility]IA [facility] PT DOES NOT HAVE A HCP OR [facility] IMM DELIVERED ON 08/14
== END 2020-08-16 14:51 | disposition skilled nursing facility (03) | DRG 603 ==
LOC: HO.ED 09:18 → HO.S3 13:32
PROVIDERS: Nurse Practitioner Acute Care; Admitting Provider Family Medicine; Emergency Provider Emergency Medicine; PCP Hospitalist; Visit Provider Student in an Organized Health Care Education/Training Program
DX: A46 Erysipelas (principal); L03.211 Cellulitis of face; E11.9 Type 2 diabetes mellitus without complications; I10 Essential (primary) hypertension; E78.5 Hyperlipidemia, unspecified; Z20.828 Contact with and (suspected) exposure to other viral communicable diseases; Z79.4 Long term (current) use of insulin; Z79.82 Long term (current) use of aspirin; Z79.899 Other long term (current) drug therapy
CPT/HCPCS: 36415; 71045; 80048; 80076; 80202; 82947; 83605; 83735; 85025; 85027; 85610; 85730; 87040; 87635; 93005; 96361; 96365; 96367; 99284; J0696; J1650; J2543; J3370

== ENCOUNTER 2022-02-11 13:11 | Emergency (ER) | payer MEDICARE, MEDICAID, SELFPAY ==
--- NOTE | ~2022-02-11 | XR_ITS ---
EXAMINATION: CHEST 10 LUMBAR SPINE. CLINICAL INFORMATION: Lumbar spine 3 views. Chest 2 views. COMPARISON: None TECHNIQUE: Chest 2 views. Lumbar spine 3 views. FINDINGS: Chest: Lungs are well-expanded and clear. Heart size and pulmonary vascularity is normal. There is moderate spondylosis dorsal spine. No lytic process seen. Lumbar spine: There is maintained lumbar lordosis. There is severe loss of L4-L5 and L5-S1 disc levels with mild ventral and posterior spondylosis throughout lumbar spine. No aggressive lytic or sclerotic process. No acute fracture. The paravertebral soft tissues are normal. Visualized sacrum is unremarkable. XR/XR lumbar spine 2-3V IMPRESSION: No acute cardiopulmonary process seen. Severe degenerative disc changes L4-L5 and L5-S1 disc levels. There is mild ventral and posterior spondylosis. No visible acute fracture, dislocation or lytic process seen.
--- NOTE | ~2022-02-11 | XR_ITS ---
EXAMINATION: CHEST 10 LUMBAR SPINE. CLINICAL INFORMATION: Lumbar spine 3 views. Chest 2 views. COMPARISON: None TECHNIQUE: Chest 2 views. Lumbar spine 3 views. FINDINGS: Chest: Lungs are well-expanded and clear. Heart size and pulmonary vascularity is normal. There is moderate spondylosis dorsal spine. No lytic process seen. Lumbar spine: There is maintained lumbar lordosis. There is severe loss of L4-L5 and L5-S1 disc levels with mild ventral and posterior spondylosis throughout lumbar spine. No aggressive lytic or sclerotic process. No acute fracture. The paravertebral soft tissues are normal. Visualized sacrum is unremarkable. XR/XR chest 2V IMPRESSION: No acute cardiopulmonary process seen. Severe degenerative disc changes L4-L5 and L5-S1 disc levels. There is mild ventral and posterior spondylosis. No visible acute fracture, dislocation or lytic process seen.
[2022-02-11 13:25] VITALS: BP 120/62; BP 150/90; PULSE 86; PULSE 88; RESP 16; TEMP 36.8; O2SAT 98; BMI 24.2
--- NOTE | 2022-02-11 13:38 | ED.GENADULT ---
HPI - General Adult General Chief complaint: Back Pain/Injury Stated complaint: BACK PAIN,NO INJURY PER SNF Time Seen by Provider: 02/11/22 13:38 Source: patient and EMS Mode of arrival: EMS Limitations: no limitations History of Present Illness HPI narrative: Patient is a 82 year old male presenting to the emergency department today with low back pain. Patient states that earlier he was getting up from sitting and had low back pain but it resolved. Patient denies any dizziness, lightheadedness, abdominal pain, nausea, vomiting, fever, chills, blurry vision, double vision, loss of vision, chest pain, difficulty breathing, shortness of breath, night sweats, pain with urination, increased urinary frequency, increased urinary urgency, blood in his urine or stool, syncope or a near syncopal episode, recent trauma or falls, bowel incontinence, bladder incontinence, bowel retention, bladder retention, or any other complaints at this time. Onset (ago): minute(s) Location: back Severity: mild Severity scale (1-10): 1 Quality: dull Pain Consistency: now resolved Relieving factors: none Exacerbating factors: none Associated symptoms: denies other symptoms Treatments prior to arrival: none Related Data Home Medications Medication Instructions Recorded Confirmed acetaminophen 325 mg tablet 325 mg PO BID 08/13/20 08/13/20 albuterol sulfate 90 mcg/actuation 2 puff inhalation BID 08/13/20 08/13/20 aerosol inhaler (ProAir HFA) aspirin 81 mg chewable tablet 81 mg PO DAILY 08/13/20 08/13/20 atorvastatin 40 mg tablet (Lipitor) 40 mg PO BEDTIME 08/13/20 08/13/20 docusate sodium 100 mg capsule 200 mg PO DAILY 08/13/20 08/13/20 (Colace) glycerin drp ophthalmic (eye) PRN Dry Eyes 08/13/20 insulin aspart U-100 100 unit/mL 1 sliding scale dose subcut 08/13/20 08/13/20 subcutaneous solution USEASDIRECTD lisinopril 10 mg tablet 10 mg PO DAILY 08/13/20 08/13/20 melatonin 3 mg tablet 3 mg PO BEDTIME 08/13/20 08/13/20 memantine 10 mg tablet 10 mg PO BID 08/13/20 08/13/20 metformin 1,000 mg tablet 1,000 mg PO BID 08/13/20 08/13/20 nutritional supplements ea PO 08/13/20 sennosides 8.6 mg capsule (senna) 8.6 mg PO DAILY 08/13/20 08/13/20 sertraline 25 mg tablet 75 mg PO DAILY 08/13/20 08/13/20 Previous Rx's Medication Instructions Recorded cefuroxime axetil 500 mg tablet 500 mg PO BID #8 tabs 08/16/20 doxycycline monohydrate 100 mg 100 mg PO BID #8 caps 08/16/20 capsule Allergies Allergy/AdvReac Type Severity Reaction Status Date / Time No Known Allergies Allergy Intermediate UNKNOWN Verified 08/13/20 07:56 [NO KNOWN ALLERGIES] Review of Systems Constitutional: Constitutional: Reports no additional constitutional complaints, Denies chills, Denies fever(s) and Denies night sweats Eyes: Eyes: Reports no additional eye complaints, Denies blurry vision, Denies change in vision, Denies diplopia, Denies eye discharge, Denies loss of vision and Denies eye pain ENT: Denies dizziness Cardiovascular: Cardiovascular: Reports no additional cardiovascular complaints, Denies chest pain, Denies lightheadedness, Denies Loss of Consciousness and Denies dyspnea Respiratory: Respiratory: Reports no additional respiratory complaints and Denies dyspnea Gastrointestinal: Gastrointestinal: Reports no additional gastrointestinal complaints, Denies abdominal pain, Denies melena, Denies hematochezia, Denies change in bowel habits and Denies change in stool character Genitourinary: Genitourinary: Reports no additional male genitourinary complaints, Denies hematuria, Denies oliguria, Denies difficulty urinating, Denies dysuria, Denies urinary frequency, Denies urinary hesitancy, Denies urinary incontinence and Denies urinary urgency Musculoskeletal: Musculoskeletal: Reports no additional musculoskeletal complaints, Reports back pain, Denies numbness and Denies tingling Neurologic: Denies dizziness, Denies loss of vision, Denies numbness and Denies tingling Psychiatric: Psychiatric: Reports no additional psychiatric complaints Endocrine: Endocrine: Reports no additional endocrine complaints Hematologic/Lymphatic: Hematologic/Lymphatic: Reports no additional hematologic/lymphatic complaints Allergic/Immunologic: Allergic/Immunologic: Reports no additional allergic/immunologic complaints PMFSH Past Medical History Attestation statement: The following information was validated with the patient. Source: old records reviewed Medical History Cerebral infarction Cognitive communication deficit COPD (chronic obstructive pulmonary disease) Depressive disorder Diabetes Dysphagia Hearing loss Hemiplegia HTN (hypertension) Hyperlipemia Vascular dementia Social History Social History Household Members: Caregiver Housing: Senior Care Unable to assess alcohol history related to: Refusing to respond Alcohol intake: former Patient Tobacco Use Status: Former Tobacco user Smoked in Last 30 Days: No Use of substances other than those prescribed or required for medical reasons: No Advance Directives: No Advance Directives Information Provided: No service: No Current occupational status: disabled Physical Exam ED Vital Signs: Vital Signs - 24 hr 02/11/22 13:25 Temperature 98.2 F Pulse Rate 86 Respiratory Rate 16 Blood Pressure 120/62 Pulse Oximetry 98 Oxygen Delivery Method Room Air BMI result Body Mass Index 24.2 Const General: cooperative, no acute distress, alert and awake Nutritional Appearance: well nourished Orientation/consciousness: patient oriented x3 Limitations: no limitations HENMT Head: Yes normal to inspection and Yes atraumatic Ears: hearing grossly normal bilaterally and external ears normal General nose exam: Normal external nose present, no nasal discharge noted and no epistaxis Face and sinus: Yes normal facial exam, No abrasion and No laceration Mouth: Normal oral and palatal mucosa present, no drooling and no muffled voice Eyes General: appearance normal, both eyes and all related structures Periorbital: periorbital findings normal Eyelids: Yes eyelids normal Conjunctivae: conjunctivae normal Pupils: Equal, round and reactive pupils present EOM: EOMs intact bilaterally Neck Neck: Yes normal visual inspection, Yes full ROM and Yes no lymphadenopathy Chest Chest palpation & inspection: normal inspection of the chest Resp Effort & Inspection: normal respiratory effort and able to speak in complete sentences Auscultation: clear to auscultation bilaterally Cardio Rate: regular rate Rhythm: regular rhythm GI Inspection: Yes normal to inspection General: Yes no CVA tenderness Back/Spine/Pelvis Back: no CVA tenderness Cervical Spine: normal cervical lordosis and cervical ROM normal Thoracic/Lumbar Spine: thoracic and lumbar spine normal to inspection and thoraco-lumbar ROM normal Neuro General: patient oriented x3 and moves all extremities Cranial nerves: Yes Equal, round and reactive pupils present Cognition (Neuro): normal cognition Motor exam (neuro): 5/5 motor strength present throughout Sensory Exam: Normal double simultaneous stimulation for sensation Coordination: [id number] test normal Extrem General: Yes normal to inspection, Yes full ROM and Yes capillary refill normal Psych Appearance: grossly normal Mental Status: mental status grossly normal Affect: normal affect Attitude: cooperative Thought process: Normal thought process present Thought content: Normal thought content present Insight: Good insight present (Psych) Medical Decision Making MDM Narrative Medical decision making narrative: Patient is a 82 year old male presenting to the emergency department today with resolved back pain. Patient's physical exam was unremarkable. Patient's blood work was unremarkable. Patient's EKG was unremarkable. Patient's chest and lumbar x-ray showed no acute process. I explained my physical exam findings as well as all test results to the patient. I answered all questions asked by the patient. I stressed the importance of the patient taking his medication as prescribed. I stressed the importance of the patient following up with his primary care provider. I stressed the importance of the patient returning to the emergency department immediately if his symptoms were to worsen or if he were to develop any dizziness, shortness of breath, difficulty breathing, chest pain, blurry vision, loss of vision, nausea, vomiting, abdominal pain, fever, chills, back pain, or any other complaints. Patient verbalized agreement and understanding with this treatment plan and discharge. Differential Diagnosis Differential Diagnosis: resolved low back pain Medical Records Medical records reviewed: Yes I reviewed the patient's medical records. Lab Data Lab results reviewed: Yes I reviewed the patient's lab results. Result diagrams: 02/11/22 14:06 02/11/22 14:06 Labs: Lab Results 02/11/22 02/11/22 02/11/22 Range/Units 14:06 14:06 14:06 WBC 9.8 (4.8-10.8) X10*3/uL RBC 5.25 (4.60-5.80) X10*6/uL Hgb 15.2 (14.0-18.0) g/dl Hct 47.3 (42.0-52.0) % MCV 90.1 (80.0-98.0) fL MCH 29.0 (27.0-33.0) pg MCHC 32.1 (31.0-36.0) g/dl RDW 13.7 (11.0-16.0) % Plt Count 314 (160-400) X10*3/uL MPV 10.3 (9.4-12.4) fL Immature Gran % (Auto) 0.5 H (0.0-0.4) % Neut % (Auto) 65.9 (45-73) % Lymph % (Auto) 23.6 (20-40) % [place] % (Auto) 7.7 (2-11) % Eos % (Auto) 1.6 (0-4) % Baso % (Auto) 0.7 (0-2) % Lymph # (Auto) 2.3 (1.2-4.9) X10*3/uL [place] # (Auto) 0.8 (0.1-1.2) X10*3/uL Eos # (Auto) 0.2 (0.0-0.4) X10*3/uL Baso # (Auto) 0.1 (0.0-0.2) X10*3/uL Abs Immat Gran (auto) 0.05 H (0.00-0.03) X10*3/uL Absolute Neuts (auto) 6.5 (2.0-8.3) x10*3/uL Absolute Nucleated RBC 0.000 (0.0-0.012) X10*3/uL Nucleated RBC % (auto) 0.0 (0.0-0.2) /100WBC Sodium 135 (135-145) mmol/L Potassium 5.0 (3.3-5.1) mmol/L Chloride 102 (96-108) mmol/L Carbon Dioxide 26 (22-29) mmol/L Anion Gap 12 (12-20) BUN 19 H (9-16) mg/dL Creatinine 1.03 (0.5-1.4) mg/dL Estim Creat Clear Calc 55.2 Estimated GFR > 60 Random Glucose 178 H (60-115) mg/dL Calcium 9.2 D (8.4-10.2) mg/dL Magnesium 1.7 (1.6-2.6) mg/dL Total Bilirubin 0.6 (0.0-1.0) mg/dL AST 26 D (5-37) U/L ALT 32 (0-40) U/L Alkaline Phosphatase 133 H D (39-117) U/L Troponin I High Sens < 3.5 (<3.5-35.0) ng/L Total Protein 6.2 L (6.5-8.0) g/dL Albumin 4.1 (3.5-5.0) g/dL Imaging Data Chest x-ray: Attestation: I personally reviewed and interpreted this imaging study as follows: My impression: No acute process. Radiologist's impression: EXAMINATION: CHEST 10 LUMBAR SPINE. CLINICAL INFORMATION: Lumbar spine 3 views. Chest 2 views.? COMPARISON: None? TECHNIQUE: Chest 2 views. Lumbar spine 3 views.? FINDINGS: Chest: Lungs are well-expanded and clear. Heart size and pulmonary vascularity is normal. There is moderate spondylosis dorsal spine. No lytic process seen. Lumbar spine: There is maintained lumbar lordosis. There is severe loss of L4-L5 and L5-S1 disc levels with mild ventral and posterior spondylosis throughout lumbar spine. No aggressive lytic or sclerotic process. No acute fracture. The paravertebral soft tissues are normal. Visualized sacrum is unremarkable.? XR/XR chest 2V IMPRESSION: No acute cardiopulmonary process seen. ? Severe degenerative disc changes L4-L5 and L5-S1 disc levels. There is mild ventral and posterior spondylosis. No visible acute fracture, dislocation or lytic process seen.? Dictated By: Robert Celestin MD Signed By: Electronically signed by Robert Celestin MD 02/11/22 4726 Lumbar spine x-ray: Attestation: I personally reviewed and interpreted this imaging study as follows: My impression: No acute process. Radiologist's impression: EXAMINATION: CHEST 10 LUMBAR SPINE. CLINICAL INFORMATION: Lumbar spine 3 views. Chest 2 views.? COMPARISON: None? TECHNIQUE: Chest 2 views. Lumbar spine 3 views.? FINDINGS: Chest: Lungs are well-expanded and clear. Heart size and pulmonary vascularity is normal. There is moderate spondylosis dorsal spine. No lytic process seen. Lumbar spine: There is maintained lumbar lordosis. There is severe loss of L4-L5 and L5-S1 disc levels with mild ventral and posterior spondylosis throughout lumbar spine. No aggressive lytic or sclerotic process. No acute fracture. The paravertebral soft tissues are normal. Visualized sacrum is unremarkable.? XR/XR lumbar spine 2-3V IMPRESSION: No acute cardiopulmonary process seen. ? Severe degenerative disc changes L4-L5 and L5-S1 disc levels. There is mild ventral and posterior spondylosis. No visible acute fracture, dislocation or lytic process seen.? Dictated By: Robert Celestin MD Signed By: Electronically signed by Robert Celestin MD 02/11/22 2978 ECG Data Attestation: I personally reviewed and interpreted this ECG as follows: Prior ECG tracings: available for review Interpretation: Vent. Rate: 090 BPM ? ? Atrial Rate: 090 BPM P-R Int: 172 ms? QRS Dur: 066 ms QT Int: 380 ms ? ? ? P-R-T Axes: 075 082 073 degrees QTc Int: 464 ms ? Normal sinus rhythm Low voltage QRS Septal infarct (cited on or before 11-FEB-2022) Abnormal ECG When compared with ECG of 13-AUG-2020 07:54, No significant change was found DD/ 1347 Discharge Plan Discharge Clinical Impression: Back pain Patient Disposition: Home, Self-Care Instructions: Back Pain (ED) Additional Instructions: Follow up with your primary care provider. Return to the emergency department immediately if your symptoms worsen or if you develop any dizziness, shortness of breath, difficulty breathing, chest pain, blurry vision, loss of vision, nausea, vomiting, abdominal pain, fever, chills, back pain, or any other complaints. Prescriptions: No [facility] acetaminophen 325 mg Tablet 325 mg PO BID atorvastatin [Lipitor] 40 mg Tablet 40 mg PO BEDTIME melatonin 3 mg Tablet 3 mg PO BEDTIME nutritional supplements Powder PO Rx Instructions: one packet once a day insulin aspart U-100 100 unit/mL Solution 1 sliding scale dose SUBCUT USEASDIRECTD Rx Instructions: 0-150=0 units, 151-200=2 units, 201-250=4 units, 251-300=6 units, 301-350=8 units, 351-400=10 units, 401-999 call metformin 1,000 mg Tablet 1,000 mg PO BID lisinopril 10 mg Tablet 10 mg PO DAILY docusate sodium [Colace] 100 mg Capsule 200 mg PO DAILY sertraline 25 mg Tablet 75 mg PO DAILY aspirin 81 mg Tablet,Chewable 81 mg PO DAILY albuterol sulfate [ProAir HFA] 90 mcg/actuation Hfa Aerosol Inhaler 2 puff INHALATION BID glycerin Drops OPHTHALMIC (EYE) PRN (Reason: Dry Eyes) Rx Instructions: 1 drop b/l eyes memantine 10 mg Tablet 10 mg PO BID senna 8.6 mg Capsule 8.6 mg PO DAILY cefuroxime axetil 500 mg tablet 500 mg PO BID Qty: 8 0RF doxycycline monohydrate 100 mg capsule 100 mg PO BID Qty: 8 0RF Referrals: Taras Prescott DO [Primary Care Provider] - Print Language: Argentine
--- NOTE | 2022-02-11 13:46 | ECG_ITS ---
Test Reason : BACK PAIN Blood Pressure : / mmHG Vent. Rate : 090 BPM Atrial Rate : 090 BPM P-R Int : 172 ms QRS Dur : 066 ms QT Int : 380 ms P-R-T Axes : 075 082 073 degrees QTc Int : 464 ms Normal sinus rhythm Low voltage QRS Septal infarct (cited on or before 11-FEB-2022) Abnormal ECG When compared with ECG of 13-AUG-2020 07:54, No significant change was found Referred By: Patricia Kate Electronically Signed By:Jimmy Salmeron
--- NOTE | 2022-02-11 13:49 | PC.NURSE ---
pt alert to self only, denies back pain/ any pain. Skin pwd. Pt calm and cooperative at this time.
--- NOTE | 2022-02-11 14:00 | PC.NURSE ---
Spoke with nurse from [facility] on the phone. [facility] nurse states that patient has baseline chronic pain however, c/o back pain are new (occurred when attempting ambulation to the bathroom.) No recent traumatic events, no UTI symptoms, last bowel movement recorded Friday 02/09
[2022-02-11 14:11] LABS: MANUAL DIFF FLAG NO
[2022-02-11 14:26] LABS: Basophils Absolute Auto 0.1 X10*3/uL (0.0-0.2); Basophils Percent Auto 0.7 % (0-2); Eosinophils Absolute Auto 0.2 X10*3/uL (0.0-0.4); Eosinophils Percent Auto 1.6 % (0-4); Hematocrit 47.3 % (42.0-52.0); Hemoglobin 15.2 g/dl (14.0-18.0); Imm Gran Abs Auto 0.05 X10*3/uL (0.00-0.03); Imm Gran Pct Auto 0.5 % (0.0-0.4); Lymphocytes Absolute Auto 2.3 X10*3/uL (1.2-4.9); Lymphocytes Percent Auto 23.6 % (20-40); Mean Corpuscular HGB Conc 32.1 g/dl (31.0-36.0); Mean Corpuscular Volume 90.1 fL (80.0-98.0); Mean Platelet Volume 10.3 fL (9.4-12.4); Monocytes Absolute Auto 0.8 X10*3/uL (0.1-1.2); Monocytes Percent Auto 7.7 % (2-11); Neutrophils Absolute Auto 6.5 x10*3/uL (2.0-8.3); Neutrophils Percent Auto 65.9 % (45-73); Platelet Count 314 X10*3/uL (160-400); Red Blood Count 5.25 X10*6/uL (4.60-5.80); Red Cell Distribution Width 13.7 % (11.0-16.0); White Blood Count 9.8 X10*3/uL (4.8-10.8)
[2022-02-11 14:30] LABS: Alanine Aminotransferase 32 U/L (0-40); Albumin Level 4.1 g/dL (3.5-5.0); Alkaline Phosphatase 133 U/L (39-117); Anion Gap 12 (12-20); Aspartate Amino Transferase 26 U/L (5-37); Bilirubin Total 0.6 mg/dL (0.0-1.0); Blood Urea Nitrogen 19 mg/dL (9-16); Calcium 9.2 mg/dL (8.4-10.2); Carbon Dioxide 26 mmol/L (22-29); Chloride 102 mmol/L (96-108); Creatinine Clr Calc Pharmacy 55.2; Estimated Glomerular Filt Rate > 60; Glucose Random 178 mg/dL (60-115); Magnesium 1.7 mg/dL (1.6-2.6); Sodium 135 mmol/L (135-145); Total Protein 6.2 g/dL (6.5-8.0)
[2022-02-11 14:36] LABS: Troponin-I High Sensitivity < 3.5 ng/L (<3.5-35.0)
--- NOTE | 2022-02-11 16:17 | PC.NURSE ---
RN to RN given to [facility] nurse Vangie
--- NOTE | 2022-02-11 16:18 | PC.NURSE ---
Pt becoming agitated, not easily redirectable. Attempting to exit the bed, one to one sitter in place
[2022-02-11 16:19] LABS: Glucose, Whole Blood 100 mg/dL (60-115)
--- NOTE | 2022-02-11 16:20 | PC.NURSE ---
At 1600 This US/PCT called [facility] and booked a BLS per Patricia SPENCER to transport [facility]. Rn aware
[2022-02-11] MEDS: HaloperidoL 5 MG TABLET PO (16:23)
--- NOTE | 2022-02-11 16:24 | PC.NURSE ---
Pt continuing to escalate, attempted to kick and hit one to one/ techs. Given PO haldol, awaiting ambulance ride back to [facility]
--- NOTE | 2022-02-11 16:57 | PC.NURSE ---
bedside report to EMS.
--- NOTE | 2022-02-11 17:24 | PC.NURSE ---
PT COMBATIVE, PULLED THE FINGERS OF ONE OF THE EMS DRIVERS, AND ATTEMPTED TO GET OFF THE AMBULANCE STRETCHER. THIS COLLATERAL ANALYST SPOKE WITH RN NURSE WHEEL ALIGNMENT MECHANIC Nelson AT [facility]. NELSON GAVE PERMISSION TO GIVE PT IM INJECTION PRIOR TO TRANSPORT BACK TO [facility].
[2022-02-11] MEDS: diphenhydrAMINE HCL 50 MG/ML VIAL IM (17:29)
[2022-02-11] MEDS: LORazepam 2 MG/ML VIAL IM (17:29)
[2022-02-11] MEDS: Acetaminophen 325 MG TABLET 650 MG PO (17:29)
--- NOTE | 2022-02-11 17:30 | PC.NURSE ---
pt continued to swat at staff and at times spit even after transfer to EMS stretcher. Pt unable to redirect. [facility] consulted. see note from Kendy PARIKH. Pt medicated with IM meds to expedite transfer to [facility] safely for both EMS and patient.
--- NOTE | 2022-02-11 17:53 | PC.NURSE ---
After medicating pt with IM Ativan ED staff attempted verbal deescalation. Pt still kicking and attempting to remove stretcher seat belts but showing signs that sedation was starting to take effect. Decision made to attempt to bring patient to ambulance. ED Staff as well as EMS staff attempted to bring patient to ambulance, EMS personnel stated they would not take the pt in his agitated state and brought pt back to stretcher in ED. Pt rested in ED stretcher. Sedation continuing to taking effect though patient remained alert. After assessment, small skin tears noted on pts shins d/t seat belt straps on EMS stretcher. Shortly after, PA (Clara) stated that the transport would be occurring and EMS arrived with stretcher. Pt transported to EMS stretcher and brought to ambulance. Pt still mildly agitated but calming down.
== END 2022-02-11 18:05 | disposition home or self-care (01) ==
PROVIDERS: Physician Assistant Medical; Emergency Provider Emergency Medicine Emergency Medical Services; PCP Hospitalist
DX: M54.50 Low back pain, unspecified (principal); R07.89 Other chest pain; Z87.891 Personal history of nicotine dependence; Z79.899 Other long term (current) drug therapy
CPT/HCPCS: 36415; 71046; 72100; 80053; 82947; 83735; 84484; 85025; 93005; 96372; 99284; J1200; J2060

== ENCOUNTER 2022-03-31 23:24 | Emergency (ER) | payer MEDICARE, MEDICAID, SELFPAY ==
--- NOTE | ~2022-03-31 | CT_ITS ---
EXAMINATION: CT CHEST WITHOUT CONTRAST CLINICAL INFORMATION: Chest pain. COMPARISON: None TECHNIQUE: Multidetector volumetric CT imaging of the chest was done. Axial MIP volume rendering provided. Sagittal and coronal reformatted images were obtained. This CT examination was performed using dose optimization techniques as appropriate, variously including the following: *Automated exposure control *Adjustment of mA and/or kV according to patient size (this includes techniques or standardized protocols for targeted exams where dose is matched to indication/reason for exam; i.e. extremities or head) *Use of iterative reconstruction technique DLP: 404 mGy-cm FINDINGS: LUNGS: No parenchymal consolidation, pneumonitis or pneumothorax. Small secretions present within the distal trachea. Diffuse mild bronchial thickening without bronchiectasis. MEDIASTINUM: Normal heart size. Physiologic pericardial fluid, small. Great vessels normal caliber. Coronary calcifications. No mediastinal or hilar lymphadenopathy. PLEURA: There is no pleural effusion. No pleural mass or thickening. AXILLA: No lymphadenopathy. UPPER ABDOMEN: Subcentimeter nodule in the left adrenal gland is of doubtful clinical significance. No follow-up required. OSSEOUS STRUCTURES: No acute fracture or traumatic malalignment. CT/CT chest wo con IMPRESSION: No evidence of acute traumatic injury within the chest. Diffuse mild bronchial thickening as can be seen with bronchitis.
--- NOTE | ~2022-03-31 | CT_ITS ---
EXAMINATION: NONCONTRAST HEAD CT NONCONTRAST CERVICAL SPINE CT INDICATION INFORMATION: Fall out of bed COMPARISON: 03/25/2020 TECHNIQUE: Separate noncontrast CT examinations of the head and cervical spine were performed. Coronal and sagittal images were created for each examination at the technologist workstation. This CT examination was performed using dose optimization techniques as appropriate, variously including the following: *Automated exposure control *Adjustment of mA and/or kV according to patient size (this includes techniques or standardized protocols for targeted exams where dose is matched to indication/reason for exam; i.e. extremities or head) *Use of iterative reconstruction technique DLP: 1256 mGy-cm FINDINGS: Head: There is no evidence of acute intracranial hemorrhage or territorial infarction. No abnormal mass effect or midline shift is seen. [place] to white matter differentiation is well preserved. No extra-axial fluid collections are identified. No hydrocephalus. Proportional prominence of the ventricles and sulcal spaces is consistent with moderate volume loss. Patchy periventricular and deep white matter hypoattenuation is consistent with mild small vessel ischemic changes. Chronic left cerebellar lacunar infarct. Left frontotemporal subgaleal hematoma. No calvarial fracture. The mastoid air cells are well aerated. Cervical spine: No acute fracture or traumatic malalignment. Stable mild anterolisthesis of 4 over C5 related to facet arthropathy which is present throughout the cervical spine. Plate osteophytes present from C4 through C7. There are degrees of foraminal narrowing throughout the cervical spine. No prevertebral soft tissue swelling. Paraspinal soft tissues unremarkable. CT/CT cervical spine wo con IMPRESSION: 1. No acute intracranial findings. 2. No acute fracture or malalignment of the cervical spine.
[2022-03-31] MEDS: Haloperidol Lactate 5 MG/ML VIAL 10 MG IM (23:21)
[2022-03-31] MEDS: Midazolam HCl/PF 2 MG/2 ML VIAL IM (23:21)
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
[2022-03-31 23:24] VITALS: BP 129/53; PULSE 101; RESP 16; TEMP 36.5; O2SAT 98; BMI 23.5
[2022-03-31 23:44] LABS: MANUAL DIFF FLAG NO
[2022-03-31 23:45] VITALS: BP 125/53; PULSE 94; RESP 18; O2SAT 97
[2022-03-31 23:47] LABS: Basophils Absolute Auto 0.1 X10*3/uL (0.0-0.2); Basophils Percent Auto 0.5 % (0-2); Eosinophils Absolute Auto 0.3 X10*3/uL (0.0-0.4); Eosinophils Percent Auto 2.5 % (0-4); Hematocrit 42.6 % (42.0-52.0); Hemoglobin 13.9 g/dl (14.0-18.0); Imm Gran Abs Auto 0.05 X10*3/uL (0.00-0.03); Imm Gran Pct Auto 0.5 % (0.0-0.4); Lymphocytes Percent Auto 19.6 % (20-40); Mean Corpuscular HGB Conc 32.6 g/dl (31.0-36.0); Mean Corpuscular Hemoglobin 29.4 pg (27.0-33.0); Mean Corpuscular Volume 90.1 fL (80.0-98.0); Monocytes Absolute Auto 1.1 X10*3/uL (0.1-1.2); Monocytes Percent Auto 10.6 % (2-11); Neutrophils Absolute Auto 6.7 x10*3/uL (2.0-8.3); Neutrophils Percent Auto 66.3 % (45-73); Platelet Count 268 X10*3/uL (160-400); Red Blood Count 4.73 X10*6/uL (4.60-5.80); Red Cell Distribution Width 13.4 % (11.0-16.0); White Blood Count 10.1 X10*3/uL (4.8-10.8)
[2022-03-31 23:57] LABS: Appearance Urine HAZY; Color Urine YELLOW; Glucose Urine UA NEG (NEG); Leukocyte Esterase Urine 3+ (NEG); Nitrite Urine POS (NEG); Specific Gravity - Urine 1.015 (1.005-1.025); UACC Culture Trigger YES; Urine Blood 1+ (NEG); Urine Ketones NEG (NEG); Urine Protein NEG (NEG-TRACE)
[2022-03-31 23:57] LABS: Prothrombin Time 10.9 SEC (10.0-13.1)
[2022-03-31 23:59] LABS: Partial Thromboplastin Time 29.4 SEC (26.0-36.4)
[2022-04-01] VITALS: BP 145/64; PULSE 94; RESP 18; O2SAT 97
[2022-04-01 00:05] LABS: Alanine Aminotransferase 19 U/L (0-40); Albumin Level 4.1 g/dL (3.5-5.0); Alkaline Phosphatase 158 U/L (39-117); Anion Gap 13 (12-20); Aspartate Amino Transferase 18 U/L (5-37); Bilirubin Total 0.8 mg/dL (0.0-1.0); Blood Urea Nitrogen 16 mg/dL (9-16); Calcium 8.9 mg/dL (8.4-10.2); Carbon Dioxide 27 mmol/L (22-29); Chloride 103 mmol/L (96-108); Creatinine Clr Calc Pharmacy 70.3; Estimated Glomerular Filt Rate > 60; Glucose Random 179 mg/dL (60-115); Potassium 4.2 mmol/L (3.3-5.1); Sodium 139 mmol/L (135-145); Total Protein 6.2 g/dL (6.5-8.0)
[2022-04-01 00:17] LABS: Bacteria Urine 3+ /LPF; Triple Phosphate Crystal Urine TRACE /LPF
[2022-04-01 00:22] VITALS: BP 143/67; PULSE 94; RESP 16; O2SAT 97
[2022-04-01] MEDS: diphenhydrAMINE HCL 50 MG/ML VIAL IM (00:43)
[2022-04-01] MEDS: Haloperidol Lactate 5 MG/ML VIAL IM (00:43)
[2022-04-01] MEDS: cefTRIAXone sodium 1 GM in 0.9 % Sodium Chloride 50 ML IV (02:51)
[2022-04-01 02:53] VITALS: PULSE 108; O2SAT 98
[2022-04-01] MEDS: OLANZapine 10 MG VIAL IM (02:53)
--- NOTE | 2022-04-01 03:14 | PC.NURSE ---
pt continues to be agitated and refusing to sit for CT scan, pt medicated per MAR per MD
[2022-04-01] MEDS: Lidocaine HCl 1 % MPF 5 ML VIAL INFILTRATI ×2 (09:43)
[2022-04-01] MEDS: Lidocaine HCl 1 % MPF 2 ML VIAL 6 ML INFILTRATI (09:44)
== END 2022-04-01 11:30 ==
PROVIDERS: Emergency Provider Emergency Medicine Emergency Medical Services
DX: S09.90XA Unspecified injury of head, initial encounter (principal); S01.81XA Laceration without foreign body of other part of head, initial encounter; S61.412A Laceration without foreign body of left hand, initial encounter; W06.XXXA Fall from bed, initial encounter; T83.511A Infection and inflammatory reaction due to indwelling urethral catheter, initial encounter; N39.0 Urinary tract infection, site not specified; B96.5 Pseudomonas (aeruginosa) (mallei) (pseudomallei) as the cause of diseases classified elsewhere; F03.90 Unspecified dementia, unspecified severity, without behavioral disturbance, psychotic disturbance, mood disturbance, and anxiety; E11.9 Type 2 diabetes mellitus without complications; I10 Essential (primary) hypertension; E78.5 Hyperlipidemia, unspecified; Z79.82 Long term (current) use of aspirin; Z79.02 Long term (current) use of antithrombotics/antiplatelets; Z79.4 Long term (current) use of insulin; Z91.81 History of falling; Y93.9 Activity, unspecified; Y92.122 Bedroom in nursing home as the place of occurrence of the external cause; Y99.9 Unspecified external cause status
CPT/HCPCS: 36415; 70450; 71250; 72125; 80053; 81001; 85025; 85610; 85730; 87086; 87088; 87186; 96365; 96366; 96372; 99285; J0696; J1200; J2250

== ENCOUNTER → 2022-07-13 11:29 | Outpatient (BNVA) | payer MEDICARE, MEDICAID, SELFPAY | PROVIDERS: PCP Hospitalist; Visit Provider Urology | DX: N40.1 Benign prostatic hyperplasia with lower urinary tract symptoms (principal); N13.8 Other obstructive and reflux uropathy | CPT/HCPCS: 99202 ==

== ENCOUNTER 2023-01-19 22:48 | Emergency (ER) | payer MEDICARE, MEDICAID, SELFPAY ==
--- NOTE | ~2023-01-19 | XR_ITS ---
EXAMINATION: XR CHEST CLINICAL INFORMATION: Fever with question of pneumonia COMPARISON: Chest radiograph 02/11/2022 TECHNIQUE: Frontal view of the chest was obtained. FINDINGS: No significant abnormality is noted involving the heart, lungs, mediastinum, bony thorax or soft tissues. XR/XR chest 1V IMPRESSION: Unremarkable examination.
--- NOTE | ~2023-01-19 | CT_ITS ---
Examination: CT chest, CT abdomen and pelvis without IV contrast. CLINICAL INDICATION: Chest pain and abdominal pain. COMPARISON: CT chest 04/01/2022 TECHNIQUE: 5 mm thin axial and reformatted 3 mm thin sagittal and coronal images of chest, abdomen pelvis were obtained without contrast. DLP [id number]. This CT examination was performed using dose optimization technique as appropriate, variously including the following: Automated exposure control Adjustment of MA and/or KV according to patient size(this includes techniques or standardized protocols for targeted exams where dose is matched to indication/reason for exam; extremities or head. Use of iterative reconstruction techniques. FINDINGS: The exam is limited secondary to breathing artifact throughout the exam. CHEST: LUNGS: The lungs are well-expanded and clear of acute pneumonic process. There is no consolidation, mass, nodules or groundglass density. Mediastinum: The thyroid lobes are symmetrical and normal. The central trachea and the bronchi widely patent. Heart size and the great vessels are normal caliber. There is mild coronary artery calcifications. No pericardial effusion seen. No abnormal size mediastinal or hilar lymph nodes seen. Pleura: There is no pleural thickening, effusion or calcified plaques. Axilla: Small shotty benign lymph nodes seen. The chest wall is unremarkable. Osseous structures: No aggressive lytic or sclerotic process seen. There is mild ventral spondylosis mid and lower dorsal spine. No aggressive lytic or sclerotic process seen. ABDOMEN AND PELVIS: Liver, ducts and gallbladder: The liver is normal size, contour and density. No focal lesion or intrahepatic ductal dilatation seen. Spleen: Unremarkable. Pancreas: Unremarkable. Adrenal glands: There is a 1 cm left adrenal lesion. The right adrenal gland is unremarkable. Lymphovascular structures: The abdominal aorta is of normal caliber except for mild atherosclerosis. Heavily calcified left renal artery with stenosis is noted. No abnormal size lymph nodes noted Kidneys and ureters: Both kidneys are normal size, shape and density. There is a bilateral vascular calcifications in the hilum. Significant Gloria nephric stranding and fluid collection is noted more so on the right. No radiopaque calculi are hydronephrosis suspected. GI tract: There is diffuse stool, diverticula and gas seen throughout the colon without distention. The small bowel loops are normal caliber. Appendix is normal caliber. Abdominal wall: Unremarkable. Pelvis: There is no free air, free fluid. The prostate gland is mildly enlarged with central gland calcification. No abnormal pelvic or inguinal lymph nodes seen. Osseous structures: There are degenerative disc changes L4-L5 and L5/S1 disc levels with moderate bridging osteophytes L2-L3 through L5-S1 disc levels. No aggressive lytic or sclerotic process. CT/CT abdomen pelvis wo IV con IMPRESSION: Unremarkable CT chest Colonic diverticulosis without diverticulitis. Mild constipation. Bilateral perinephric stranding with fluid collection but no obstructive etiology seen. There is likely secondary to reflux disease or kidney inflammatory process.
[2023-01-19 23:02] VITALS: BP 127/56; BP 139/79; PULSE 107; PULSE 123; RESP 24; TEMP 37.5; O2SAT 94; BMI 21.2
--- NOTE | 2023-01-19 23:02 | ECG_ITS ---
Test Reason : FEVER Blood Pressure : / mmHG Vent. Rate : 105 BPM Atrial Rate : 105 BPM P-R Int : 160 ms QRS Dur : 072 ms QT Int : 350 ms P-R-T Axes : 084 090 075 degrees QTc Int : 462 ms Sinus tachycardia Rightward axis Septal infarct (cited on or before 11-FEB-2022) Abnormal ECG When compared with ECG of 11-FEB-2022 13:47, No significant change was found Referred By: Robbie Lemon Electronically Signed By:QUAN SHARP
[2023-01-19 23:07] VITALS: BP 127/56; PULSE 113; RESP 22; TEMP 37.5; O2SAT 96
--- NOTE | 2023-01-19 23:08 | PC.NURSE ---
Pt presents to ER from [facility] in [place]. Facility reported pt had a fever of 104. Pt has baseline dementia and is not oriented, facility reported there has not been mental status changes, per EMS. Pt at this time, yelling out asking for help and asking if he can take it out, it being unknown. Pt rectal temp came back at 99.5. Dr Lemon has seen the pt.
--- NOTE | 2023-01-19 23:13 | ED_ITS ---
HPI - General Adult General Chief complaint: Fever Stated complaint: FEVER Time Seen by Provider: 01/19/23 22:54 Source: EMS and old records reviewed Mode of arrival: EMS Limitations: altered mental status (Dementia) History of Present Illness HPI narrative: 83-year-old male presenting from [facility] facility with fever of 100.4, decreased p.o. intake. Patient with history of CVA and cognitive disorder, COPD, DM, HTN, vascular dementia. Patient is a poor historian unable to provide history, sent from longterm for evaluation of fever. Related Data Home Medications Medication Instructions Recorded Confirmed acetaminophen 325 mg tablet 325 mg PO BID 08/13/20 08/13/20 albuterol sulfate 90 mcg/actuation 2 puff inhalation BID 08/13/20 08/13/20 aerosol inhaler (ProAir HFA) aspirin 81 mg chewable tablet 81 mg PO DAILY 08/13/20 08/13/20 atorvastatin 40 mg tablet (Lipitor) 40 mg PO BEDTIME 08/13/20 08/13/20 docusate sodium 100 mg capsule 200 mg PO DAILY 08/13/20 08/13/20 (Colace) glycerin drp ophthalmic (eye) PRN Dry Eyes 08/13/20 insulin aspart U-100 100 unit/mL 1 sliding scale dose subcut 08/13/20 08/13/20 subcutaneous solution USEASDIRECTD lisinopril 10 mg tablet 10 mg PO DAILY 08/13/20 08/13/20 melatonin 3 mg tablet 3 mg PO BEDTIME 08/13/20 08/13/20 memantine 10 mg tablet 10 mg PO BID 08/13/20 08/13/20 metformin 1,000 mg tablet 1,000 mg PO BID 08/13/20 08/13/20 nutritional supplements ea PO 08/13/20 sennosides 8.6 mg capsule (senna) 8.6 mg PO DAILY 08/13/20 08/13/20 sertraline 25 mg tablet 75 mg PO DAILY 08/13/20 08/13/20 Previous Rx's Medication Instructions Recorded cefuroxime axetil 500 mg tablet 500 mg PO BID #8 tabs 08/16/20 doxycycline monohydrate 100 mg 100 mg PO BID #8 caps 08/16/20 capsule cephalexin 500 mg capsule 500 mg PO TID 7 days #21 caps 04/01/22 finasteride 5 mg tablet 5 mg PO DAILY 90 days #90 tabs 07/13/22 Allergies Allergy/AdvReac Type Severity Reaction Status Date / Time No Known Allergies Allergy Intermediate UNKNOWN Verified 07/09/22 14:45 [NO KNOWN ALLERGIES] Review of Systems Review of Systems: All other systems are reviewed and are negative Constitutional: Reports as per HPI and Reports no additional constitutional complaints Eyes: Reports as per HPI and Reports no additional eye complaints Reports system reviewed and no additional complaints, except as documented Cardiovascular: Reports as per HPI and Reports no additional cardiovascular complaints Respiratory: Reports as per HPI and Reports no additional respiratory complaints Gastrointestinal: Reports as per HPI and Reports no additional gastrointestinal complaints Genitourinary: Reports no additional female genitourinary complaints Musculoskeletal: Reports no additional musculoskeletal complaints Skin/Breast: Reports system reviewed and no additional complaints, except as docu Psychiatric: Reports no additional psychiatric complaints Endocrine: Reports no additional endocrine complaints Hematologic/Lymphatic: Reports no additional hematologic/lymphatic complaints Allergic/Immunologic: Reports no additional allergic/immunologic complaints Reports system reviewed and no additional complaints, except as documented and Reports Abnormal speech present [facility] Past Medical History Medical History Cerebral infarction Cognitive communication deficit COPD (chronic obstructive pulmonary disease) Depressive disorder Diabetes Dysphagia Hearing loss Hemiplegia HTN (hypertension) Hyperlipemia Vascular dementia Social History Social History Household Members: Caregiver Housing: [facility] Unable to assess alcohol history related to: Refusing to respond Alcohol intake: never Patient Tobacco Use Status: Former Tobacco user Smoked in Last 30 Days: No Use of substances other than those prescribed or required for medical reasons: No Advance Directives: No Advance Directives Information Provided: Yes service: No Current occupational status: disabled Physical Exam ED Vital Signs: Vital Signs - 24 hr 01/19/23 23:02 01/19/23 23:07 Temperature 99.5 F 99.5 F Pulse Rate 107 H 113 H Respiratory Rate 24 H 22 H Blood Pressure 127/56 L 127/56 L Pulse Oximetry 94 96 Oxygen Delivery Method Room Air Room Air BMI result Body Mass Index 21.2 Vital signs have been reviewed as appeared to be correct. Blood pressure normal. Heart rate elevated. Respiration rate elevated. Temperature normal. Oxygen saturation normal. Appearance: Alert, No acute distress. Head: Normal external exam. Normocephalic. Atraumatic. No Kinsey signs noted. No raccoon eyes noted Eyes: PERRLA. EOMI. Conjunctiva and sclera normal. Eyelids normal. ENT: TM's Normal. Pharynx normal. Uvula midline. Moist mucous membranes. No trismus noted. No drooling noted. No muffled voice noted. Neck: Normal inspection. Neck supple. FROM. No adenopathy. Thyroid Normal. No meningeal signs. No neck mass noted. CVS: Normal heart rate and rhythm. Heart sound normal. No murmurs noted. Pulses normal throughout. Respiratory: No respiratory distress. Painless inspiration. Breath sounds normal. No wheezes/rales/rhonchi noted. Chest nontender. No accessory muscle usage noted or decreased air movement noted. Abdomen: Soft and nontender. Bowel sounds normal in all 4 quadrants. No distention noted. No organomegaly noted. No visible injury noted. Back: No CVA tenderness. Full range of motion noted. Skin: Skin warm and dry. Normal skin color. Normal skin turgor. No rashes/lesions/lacerations noted. Extremities: No lower extremity edema. Extremities exhibit normal range of motion. Extremities nontender. Neuro: Cranial nerve exam: II-XII are grossly intact No motor deficit. No sensory deficit. Reflexes normal. Course Course Course Narrative: 83-year-old male came in from longterm for fever, patient is meeting SIRS criteria with no clear underlying cause of fever, case signed out to Dr. Montgomery need to check UA, repeat lactic acid. Medications Administered Discontinued Medications Generic Name Dose Route Start Last Admin Trade Name Freq PRN Reason Stop Dose Admin Sodium Chloride 1,000 mls @ 999 mls/hr 01/19/23 23:01 01/20/23 00:32 Ns IV 01/20/23 00:01 Infused .Q1H1M ONE Infusion Piperacillin Sod/Tazobactam 50 mls @ 100 mls/hr 01/19/23 23:21 01/20/23 00:24 Sod 3.375 gm/ Sodium Chloride IV 01/19/23 23:50 Infused ONCE ONE Infusion Medical Decision Making Differential Diagnosis Differential Diagnoses: The differential diagnosis associated with the prese ntation includes (Pneumonia, UTI, lactic acidosis, electrolyte abnormalities, severe anemia.) Admission/Observation Consideration of admission/observation: Escalation of care including admission/observation considered Lab Data [facility] Lab Attestation statement: I reviewed the patient's lab results. 01/19/23 23:22 01/19/23 23:22 Labs: Lab Results 01/19/23 01/19/23 01/19/23 Range/Units 23:22 23:22 23:22 WBC 12.0 H (4.8-10.8) X10*3/uL RBC 5.53 (4.60-5.80) X10*6/uL Hgb 16.1 (14.0-18.0) g/dl Hct 51.1 (42.0-52.0) % MCV 92.4 (80.0-98.0) fL MCH 29.1 (27.0-33.0) pg MCHC 31.5 (31.0-36.0) g/dl RDW 13.6 (11.0-16.0) % Plt Count 294 (160-400) X10*3/uL MPV 10.1 (9.4-12.4) fL Immature Gran % (Auto) 0.3 (0.0-0.4) % Neut % (Auto) 75.5 H (45-73) % Lymph % (Auto) 10.8 L (20-40) % Yancey % (Auto) 10.9 (2-11) % Eos % (Auto) 2.2 (0-4) % Baso % (Auto) 0.3 (0-2) % Lymph # (Auto) 1.3 (1.2-4.9) X10*3/uL Yancey # (Auto) 1.3 H (0.1-1.2) X10*3/uL Eos # (Auto) 0.3 (0.0-0.4) X10*3/uL Baso # (Auto) 0.0 (0.0-0.2) X10*3/uL Abs Immat Gran (auto) 0.03 (0.00-0.03) X10*3/uL Absolute Neuts (auto) 9.1 H (2.0-8.3) x10*3/uL Absolute Nucleated RBC 0.000 (0.0-0.012) X10*3/uL Nucleated RBC % (auto) 0.0 (0.0-0.2) /100WBC Sodium 148 H (135-145) mmol/L Potassium 4.8 (3.3-5.1) mmol/L Chloride 109 H (96-108) mmol/L Carbon Dioxide 21 L (22-29) mmol/L Anion Gap 23 H (12-20) BUN 23 H (9-16) mg/dL Creatinine 1.01 (0.5-1.4) mg/dL Estim Creat Clear Calc 51.1 Estimated GFR > 60 Random Glucose 205 H (60-115) mg/dL Lactic Acid (0.5-2.0) mmol/L Calcium 10.0 D (8.4-10.2) mg/dL Total Bilirubin 1.8 H (0.0-1.0) mg/dL Direct Bilirubin 0.5 (0.0-0.5) mg/dL AST 97 H (5-37) U/L ALT 41 H (0-40) U/L Alkaline Phosphatase 130 H (39-117) U/L Troponin I High Sens 17.5 (<3.5-35.0) ng/L Total Protein 7.2 (6.5-8.0) g/dL Albumin 4.4 (3.5-5.0) g/dL Lipase 11 (8-78) U/L 01/19/23 Range/Units 23:22 WBC (4.8-10.8) X10*3/uL RBC (4.60-5.80) X10*6/uL Hgb (14.0-18.0) g/dl Hct (42.0-52.0) % MCV (80.0-98.0) fL MCH (27.0-33.0) pg MCHC (31.0-36.0) g/dl RDW (11.0-16.0) % Plt Count (160-400) X10*3/uL MPV (9.4-12.4) fL Immature Gran % (Auto) (0.0-0.4) % Neut % (Auto) (45-73) % Lymph % (Auto) (20-40) % Yancey % (Auto) (2-11) % Eos % (Auto) (0-4) % Baso % (Auto) (0-2) % Lymph # (Auto) (1.2-4.9) X10*3/uL Yancey # (Auto) (0.1-1.2) X10*3/uL Eos # (Auto) (0.0-0.4) X10*3/uL Baso # (Auto) (0.0-0.2) X10*3/uL Abs Immat Gran (auto) (0.00-0.03) X10*3/uL Absolute Neuts (auto) (2.0-8.3) x10*3/uL Absolute Nucleated RBC (0.0-0.012) X10*3/uL Nucleated RBC % (auto) (0.0-0.2) /100WBC Sodium (135-145) mmol/L Potassium (3.3-5.1) mmol/L Chloride (96-108) mmol/L Carbon Dioxide (22-29) mmol/L Anion Gap (12-20) BUN (9-16) mg/dL Creatinine (0.5-1.4) mg/dL Estim Creat Clear Calc Estimated GFR Random Glucose (60-115) mg/dL Lactic Acid 3.6 H* (0.5-2.0) mmol/L Calcium (8.4-10.2) mg/dL Total Bilirubin (0.0-1.0) mg/dL Direct Bilirubin (0.0-0.5) mg/dL AST (5-37) U/L ALT (0-40) U/L Alkaline Phosphatase (39-117) U/L Troponin I High Sens (<3.5-35.0) ng/L Total Protein (6.5-8.0) g/dL Albumin (3.5-5.0) g/dL Lipase (8-78) U/L Independent Interpretation I performed an independent interpretation of an: Plain X-Ray (Chest: No acute intrathoracic pathology.) Radiology Impression Discussion of test interpretation with radiology: I have reviewed the radiologist's reading. Discharge Plan Discharge Clinical Impression: Fever of unknown origin Patient Disposition: Still a Patient Prescriptions: No Action acetaminophen 325 mg Tablet 325 mg PO BID atorvastatin [Lipitor] 40 mg Tablet 40 mg PO BEDTIME melatonin 3 mg Tablet 3 mg PO BEDTIME nutritional supplements Powder PO Rx Instructions: one packet once a day insulin aspart U-100 100 unit/mL Solution 1 sliding scale dose SUBCUT USEASDIRECTD Rx Instructions: 0-150=0 units, 151-200=2 units, 201-250=4 units, 251-300=6 units, 301-350=8 units, 351-400=10 units, 401-999 call metformin 1,000 mg Tablet 1,000 mg PO BID lisinopril 10 mg Tablet 10 mg PO DAILY docusate sodium [Colace] 100 mg Capsule 200 mg PO DAILY sertraline 25 mg Tablet 75 mg PO DAILY aspirin 81 mg Tablet,Chewable 81 mg PO DAILY albuterol sulfate [ProAir HFA] 90 mcg/actuation Hfa Aerosol Inhaler 2 puff INHALATION BID glycerin Drops OPHTHALMIC (EYE) PRN (Reason: Dry Eyes) Rx Instructions: 1 drop b/l eyes memantine 10 mg Tablet 10 mg PO BID senna 8.6 mg Capsule 8.6 mg PO DAILY cefuroxime axetil 500 mg tablet 500 mg PO BID Qty: 8 0RF doxycycline monohydrate 100 mg capsule 100 mg PO BID Qty: 8 0RF cephalexin 500 mg capsule 500 mg PO TID 7 Days Qty: 21 0RF finasteride 5 mg tablet 5 mg PO DAILY 90 Days Qty: 90 1RF
[2023-01-19 23:29] LABS: MANUAL DIFF FLAG NO
[2023-01-19 23:31] LABS: Basophils Percent Auto 0.3 % (0-2); Eosinophils Absolute Auto 0.3 X10*3/uL (0.0-0.4); Eosinophils Percent Auto 2.2 % (0-4); Hematocrit 51.1 % (42.0-52.0); Hemoglobin 16.1 g/dl (14.0-18.0); Imm Gran Abs Auto 0.03 X10*3/uL (0.00-0.03); Imm Gran Pct Auto 0.3 % (0.0-0.4); Lymphocytes Absolute Auto 1.3 X10*3/uL (1.2-4.9); Lymphocytes Percent Auto 10.8 % (20-40); Mean Corpuscular HGB Conc 31.5 g/dl (31.0-36.0); Mean Corpuscular Hemoglobin 29.1 pg (27.0-33.0); Mean Corpuscular Volume 92.4 fL (80.0-98.0); Mean Platelet Volume 10.1 fL (9.4-12.4); Monocytes Absolute Auto 1.3 X10*3/uL (0.1-1.2); Monocytes Percent Auto 10.9 % (2-11); Neutrophils Absolute Auto 9.1 x10*3/uL (2.0-8.3); Neutrophils Percent Auto 75.5 % (45-73); Platelet Count 294 X10*3/uL (160-400); Red Blood Count 5.53 X10*6/uL (4.60-5.80); Red Cell Distribution Width 13.6 % (11.0-16.0)
[2023-01-19] MEDS: Piperacillin Sodium/Tazobactam 3.375 GM in 0.9 % Sodium Chloride 50 ML IV (23:32)
[2023-01-19] MEDS: 0.9 % Sodium Chloride 1,000 ML 999 ML IV (23:32)
[2023-01-19 23:44] LABS: Lactic Acid 3.6 mmol/L (0.5-2.0)
[2023-01-19 23:47] LABS: Alanine Aminotransferase 41 U/L (0-40); Albumin Level 4.4 g/dL (3.5-5.0); Alkaline Phosphatase 130 U/L (39-117); Anion Gap 23 (12-20); Aspartate Amino Transferase 97 U/L (5-37); Bilirubin Direct 0.5 mg/dL (0.0-0.5); Bilirubin Total 1.8 mg/dL (0.0-1.0); Blood Urea Nitrogen 23 mg/dL (9-16); Carbon Dioxide 21 mmol/L (22-29); Chloride 109 mmol/L (96-108); Creatinine Clr Calc Pharmacy 51.1; Estimated Glomerular Filt Rate > 60; Glucose Random 205 mg/dL (60-115); Lipase 11 U/L (8-78); Potassium 4.8 mmol/L (3.3-5.1); Sodium 148 mmol/L (135-145); Total Protein 7.2 g/dL (6.5-8.0)
[2023-01-19 23:51] LABS: Troponin-I High Sensitivity 17.5 ng/L (<3.5-35.0)
--- NOTE | 2023-01-20 00:28 | MHC.EDTECH ---
pt uncooperative and agitated. pt removed bus monitor leads. attempting to removed clothes. pt pinches t/w when attempting to redress pt. sherri eldridge
[2023-01-20 01:27] LABS: Reflex Lactate? Lactic Acid Added
--- NOTE | 2023-01-20 01:41 | PC.NURSE ---
Attempted to straight cath the pt, per MD. Pt remained calm and cooperative. Resistance was met and a small amount of blood presented. Catheter was withdrawn and MD was notified. MD at bedside at this time
--- NOTE | 2023-01-20 01:49 | PC.NURSE ---
Dr mon inserted the straight cath and pt voided approx 400mL of clear, yellow urine. Pt tolerated insertion well.
[2023-01-20 02:07] LABS: Appearance Urine Cloudy; Color Urine Yellow; Glucose Urine UA >=1000 mg/dL (Negative); Leukocyte Esterase Urine Trace (Negative); Nitrite Urine Negative (Negative); Specific Gravity - Urine >= 1.030 (1.005-1.025); UMIC TRIGGER UACC YES; Urine Blood Large (3+) (Negative); Urine Ketones >=160 mg/dL (Negative); Urine Protein 30 (1+) mg/dL (Neg-Trace)
[2023-01-20 02:21] LABS: ~Lactic Acid-LAB USE ONLY 2.1 mmol/L (0.5-2.0)
[2023-01-20 02:31] LABS: Bacteria Urine None Seen (None Seen); Hyaline Casts Urine 0-2 /LPF (0-2); RBC Urine >20 /HPF (0-2); Squamous Epithelial Cell Urine 0-2 /HPF (0-2); UACC Culture Trigger YES
[2023-01-20 04:04] LABS: Reflex Lactate? 2 Y
[2023-01-20 04:52] LABS: Hematocrit 50.2 % (42.0-52.0); Hemoglobin 15.9 g/dl (14.0-18.0); Mean Corpuscular HGB Conc 31.7 g/dl (31.0-36.0); Mean Corpuscular Hemoglobin 29.1 pg (27.0-33.0); Mean Corpuscular Volume 91.8 fL (80.0-98.0); Mean Platelet Volume 10.3 fL (9.4-12.4); Platelet Count 289 X10*3/uL (160-400); Red Blood Count 5.47 X10*6/uL (4.60-5.80); Red Cell Distribution Width 13.8 % (11.0-16.0); White Blood Count 12.9 X10*3/uL (4.8-10.8)
[2023-01-20 05:03] LABS: ~Lactic Acid-LAB USE ONLY 1.5 mmol/L (0.5-2.0)
[2023-01-20 05:08] LABS: Anion Gap 21 (12-20); Blood Urea Nitrogen 25 mg/dL (9-16); Calcium 8.9 mg/dL (8.4-10.2); Carbon Dioxide 20 mmol/L (22-29); Chloride 112 mmol/L (96-108); Creatinine Clr Calc Pharmacy 45.6; Estimated Glomerular Filt Rate > 60; Glucose Random 161 mg/dL (60-115); Potassium 4.7 mmol/L (3.3-5.1); Sodium 148 mmol/L (135-145)
[2023-01-20 05:18] VITALS: BP 137/66; PULSE 118; RESP 20; TEMP 37.1; O2SAT 98
[2023-01-20] MEDS: LORazepam 2 MG/ML VIAL 1 MG IVPUSH (06:51)
--- NOTE | 2023-01-20 07:20 | PC.NURSE ---
report taken from rafael polanco pt here for reported fever at snf, no fever noted at this facility. pt is at baseline mentation per chart, responsive to tactile stimuli, favoring r side lying. rr even/unlabored. awaiting ct scan, medicated for restlessness. wctm.
[2023-01-20] MEDS: Acetaminophen Supp 650 MG SUPP.RECT PR (09:09)
[2023-01-20 09:17] VITALS: PULSE 104; RESP 20; TEMP 36.9; O2SAT 95
== END 2023-01-20 10:03 | disposition skilled nursing facility (03) ==
PROVIDERS: Emergency Medicine; Emergency Provider Student in an Organized Health Care Education/Training Program; PCP Hospitalist
DX: R50.9 Fever, unspecified (principal); E11.9 Type 2 diabetes mellitus without complications; I10 Essential (primary) hypertension; Z79.4 Long term (current) use of insulin; Z79.899 Other long term (current) drug therapy
CPT/HCPCS: 36415; 71045; 71250; 74176; 80048; 80076; 81001; 83605; 83690; 84484; 85025; 85027; 87040; 87086; 93005; 96361; 96365; 96375; 99284; 99285; J2060; J2543

== ENCOUNTER → 2023-01-22 11:31 | Outpatient (BNVA) | payer MEDICARE, MEDICAID, SELFPAY | PROVIDERS: PCP Hospitalist; Visit Provider Urology | DX: N40.1 Benign prostatic hyperplasia with lower urinary tract symptoms (principal); N13.8 Other obstructive and reflux uropathy; R35.0 Frequency of micturition | CPT/HCPCS: 51798; 99212 ==

== ENCOUNTER 2023-01-26 09:42 | Inpatient (IN) | payer MEDICARE, MEDICAID, SELFPAY ==
[2023-01-26] VITALS (10 sets, daily range): BP systolic 104–172; BP diastolic 54–89; PULSE 23–110; RESP 18–110; TEMP 36.1–37; O2SAT 88–99; BMI 20.1; BMI 19.9
--- NOTE | ~2023-01-26 | XR_ITS ---
EXAMINATION: XR CHEST CLINICAL INFORMATION: Mental status change COMPARISON: 01/19/2023 TECHNIQUE: Frontal view of the chest was obtained. FINDINGS: Lungs are persistently hyperexpanded. Correlate for history of obstructive pulmonary disease. No acute abnormality. No consolidation, pleural effusion or pneumothorax. Cardiac silhouette has normal size and contour. The visualized skeletal structures are intact. XR/XR chest 1V IMPRESSION: * No evidence of pneumonia or congestive heart failure. * Lungs are hyperexpanded. Correlate for any history of obstructive pulmonary disease.
--- NOTE | 2023-01-26 10:04 | PC.NURSE ---
Alert but with much confusion. Non verbal but moaning when changed and repositioned. Brought in by EMS who states that at baseline he has behaviors that include pinching and punching. Ems report patient here about a week ago for a kidney infection but has been weak and more confused x 1 week. sating 96% on 3 liters 02. Attempting to grab and pinch at staff during care. rectal temp 98.1. does not appear to be in any pain or discomfort. Upon arrival finger tips cyanotic and cold. Improved with oxygen
--- NOTE | 2023-01-26 10:11 | ED_ITS ---
HPI - Altered Mental Status General Chief Complaint: Altered Mental Status Stated Complaint: AMS FROM SNF Time Seen by Provider: 01/26/23 10:04 Source: patient and EMS Mode of arrival: EMS Limitations: no limitations History of Present Illness HPI narrative: 83-year-old male presenting from [facility] facility with a change mental status and decreased p.o. intake, patient was seen in the emergency department 2 days ago for pyelonephritis patient returned for increases confusion and agitation in Related Data Home Medications Medication Instructions Recorded Confirmed acetaminophen 325 mg tablet 325 mg PO BID 08/13/20 08/13/20 albuterol sulfate 90 mcg/actuation 2 puff inhalation BID 08/13/20 08/13/20 aerosol inhaler (ProAir HFA) aspirin 81 mg chewable tablet 81 mg PO DAILY 08/13/20 08/13/20 atorvastatin 40 mg tablet (Lipitor) 40 mg PO BEDTIME 08/13/20 08/13/20 docusate sodium 100 mg capsule 200 mg PO DAILY 08/13/20 08/13/20 (Colace) glycerin drp ophthalmic (eye) PRN Dry Eyes 08/13/20 insulin aspart U-100 100 unit/mL 1 sliding scale dose subcut 08/13/20 08/13/20 subcutaneous solution USEASDIRECTD lisinopril 10 mg tablet 10 mg PO DAILY 08/13/20 08/13/20 melatonin 3 mg tablet 3 mg PO BEDTIME 08/13/20 08/13/20 memantine 10 mg tablet 10 mg PO BID 08/13/20 08/13/20 metformin 1,000 mg tablet 1,000 mg PO BID 08/13/20 08/13/20 nutritional supplements ea PO 08/13/20 sennosides 8.6 mg capsule (senna) 8.6 mg PO DAILY 08/13/20 08/13/20 sertraline 25 mg tablet 75 mg PO DAILY 08/13/20 08/13/20 Previous Rx's Medication Instructions Recorded cefuroxime axetil 500 mg tablet 500 mg PO BID #8 tabs 08/16/20 doxycycline monohydrate 100 mg 100 mg PO BID #8 caps 08/16/20 capsule cephalexin 500 mg capsule 500 mg PO TID 7 days #21 caps 04/01/22 cefdinir 300 mg capsule 300 mg PO BID 10 days #20 caps 05/28/23 finasteride 5 mg tablet 5 mg PO DAILY 90 days #90 tabs 01/22/23 terazosin 2 mg capsule 2 mg PO BEDTIME 90 days #90 caps 01/22/23 Allergies Allergy/AdvReac Type Severity Reaction Status Date / Time No Known Allergies Allergy Intermediate UNKNOWN Verified 01/22/23 12:01 [NO KNOWN ALLERGIES] Review of Systems Review of Systems: All other systems are reviewed and are negative Constitutional: Reports as per HPI and Reports no additional constitutional complaints Eyes: Reports as per HPI and Reports no additional eye complaints Reports system reviewed and no additional complaints, except as documented Cardiovascular: Reports as per HPI and Reports no additional cardiovascular complaints Respiratory: Reports as per HPI and Reports no additional respiratory complaints Gastrointestinal: Reports as per HPI and Reports no additional gastrointestinal complaints Genitourinary: Reports no additional female genitourinary complaints Musculoskeletal: Reports no additional musculoskeletal complaints Skin/Breast: Reports system reviewed and no additional complaints, except as docu Psychiatric: Reports no additional psychiatric complaints Endocrine: Reports no additional endocrine complaints Hematologic/Lymphatic: Reports no additional hematologic/lymphatic complaints Allergic/Immunologic: Reports no additional allergic/immunologic complaints Reports system reviewed and no additional complaints, except as documented and Reports Abnormal speech present [facility] Past Medical History Medical History Cerebral infarction Cognitive communication deficit COPD (chronic obstructive pulmonary disease) Depressive disorder Diabetes Dysphagia Hearing loss Hemiplegia HTN (hypertension) Hyperlipemia Vascular dementia Social History Social History Household Members: Caregiver Housing: [facility] Unable to assess alcohol history related to: Refusing to respond Alcohol intake: never Patient Tobacco Use Status: Former Tobacco user Smoked in Last 30 Days: No Use of substances other than those prescribed or required for medical reasons: No Advance Directives: No service: No Current occupational status: disabled Physical Exam ED Vital Signs: Vital Signs - 24 hr 01/26/23 09:58 01/26/23 10:02 01/26/23 11:02 Temperature 98.6 F 98.6 F Pulse Rate 108 H 109 H 101 H Respiratory Rate 18 18 24 H Blood Pressure 136/87 136/87 104/54 L Pulse Oximetry 95 95 98 Oxygen Delivery Method Nasal Cannula Nasal Cannula Room Air Oxygen Flow Rate 3 01/26/23 12:00 01/26/23 12:42 01/26/23 13:46 Temperature 97.3 F Pulse Rate 107 H 23 L 105 H Respiratory Rate 18 110 H 18 Blood Pressure 146/88 H 131/54 L 139/80 Pulse Oximetry 96 96 97 Oxygen Delivery Method Nasal Cannula Nasal Cannula Nasal Cannula Oxygen Flow Rate 3 3 BMI result Body Mass Index 20.1 Vital signs have been reviewed as appeared to be correct. Blood pressure normal. Heart rate normal. Respiration rate normal. Temperature normal. Oxygen saturation normal. Appearance: Alert.No acute distress. Head: Normal external exam. Normocephalic. Atraumatic. No Kinsey signs noted. No raccoon eyes noted Eyes: PERRLA. EOMI. Conjunctiva and sclera normal. Eyelids normal. ENT: TM's Normal. Pharynx normal. Uvula midline. Moist mucous membranes. No trismus noted. No drooling noted. No muffled voice noted. Neck: Normal inspection. Neck supple. FROM. No adenopathy. Thyroid Normal. No meningeal signs. No neck mass noted. CVS: Normal heart rate and rhythm. Heart sound normal. No murmurs noted. Pulses normal throughout. Respiratory: No respiratory distress. Painless inspiration. Breath sounds normal. No wheezes/rales/rhonchi noted. Chest nontender. No accessory muscle usage noted or decreased air movement noted. Abdomen: Soft and nontender. Bowel sounds normal in all 4 quadrants. No distention noted. No organomegaly noted. No visible injury noted. Back: No CVA tenderness. Full range of motion noted. Skin: Skin warm and dry. Normal skin color. Normal skin turgor. No rashes/lesions/lacerations noted. Extremities: No lower extremity edema. Extremities exhibit normal range of motion. Extremities nontender. Neuro:. Cranial nerve exam: II-XII are grossly intact No motor deficit. No sensory deficit. Reflexes normal. Course Course Course Narrative: 83-year-old male came in from detention for mental status change her found to be hypernatremic and slightly dehydrated with leukocytosis. No clear etiology of leukocytosis, no infection at this point, hypernatremia of 167 with 1 time hypotension after was given Ativan will hydrate with D5w. The case discussed with Dr. Bermudez who agreed on the plan and admit to the floor. Medications Administered Generic Name Dose Route Start Last Admin Trade Name Freq PRN Reason Stop Dose Admin Dextrose/Sodium Chloride 1,000 mls @ 125 mls/hr 01/26/23 12:00 01/26/23 13:52 D51/2ns IVCONT 0 mls/hr .Q8H MATTY Infusion Dextrose 1,000 mls @ 250 mls/hr 01/26/23 13:30 01/26/23 13:53 D5w IVCONT 250 mls/hr .Q4H MATTY Administration Discontinued Medications Generic Name Dose Route Start Last Admin Trade Name Abbey PRN Reason Stop Dose Admin Sodium Chloride 1,000 mls @ 999 mls/hr 01/26/23 10:09 01/26/23 11:20 Ns IV 01/26/23 11:09 Infused .Q1H1M ONE Infusion Sodium Chloride 1,000 mls @ 999 mls/hr 01/26/23 10:56 01/26/23 11:22 Ns IV 01/26/23 11:56 Not Given .Q1H1M ONE Ceftriaxone Sodium 1 gm/ 50 mls @ 100 mls/hr 01/26/23 10:56 01/26/23 11:52 Sodium Chloride IV 01/26/23 11:25 Infused ONCE ONE Infusion Lorazepam 2 mg 01/26/23 10:09 01/26/23 10:22 Lorazepam 2 Mg/Ml Vial IVPUSH 01/26/23 10:10 2 mg ONCE ONE Administration Medical Decision Making Differential Diagnosis Differential Diagnoses: The differential diagnosis associated with the presentation includes (Hypernatremia, acute renal insufficiency, lactic acidosis, electrolyte abnormalities, severe anemia.) Admission/Observation Consideration of admission/observation: Escalation of care including admission/observation considered Consult Healthcare Provider Management of the patient was discussed with: Hospitalist (Dr. Grove.) and Acetone Recovery Worker (Dr. Bermudez) Lab Data MDM Lab Attestation statement: I reviewed the patient's lab results. 01/26/23 Unknown 01/26/23 Unknown Labs: Lab Results 01/26/23 01/26/23 01/26/23 Range/Units 10:29 10:29 11:05 WBC (4.8-10.8) X10*3/uL RBC (4.60-5.80) X10*6/uL Hgb (14.0-18.0) g/dl Hct (42.0-52.0) % MCV (80.0-98.0) fL MCH (27.0-33.0) pg MCHC (31.0-36.0) g/dl RDW (11.0-16.0) % Plt Count (160-400) X10*3/uL MPV (9.4-12.4) fL Immature Gran % (Auto) (0.0-0.4) % Neut % (Auto) (45-73) % Lymph % (Auto) (20-40) % [place] % (Auto) (2-11) % Eos % (Auto) (0-4) % Baso % (Auto) (0-2) % Lymph # (Auto) (1.2-4.9) X10*3/uL [place] # (Auto) (0.1-1.2) X10*3/uL Eos # (Auto) (0.0-0.4) X10*3/uL Baso # (Auto) (0.0-0.2) X10*3/uL Abs Immat Gran (auto) (0.00-0.03) X10*3/uL Absolute Neuts (auto) (2.0-8.3) x10*3/uL Absolute Nucleated RBC (0.0-0.012) X10*3/uL Nucleated RBC % (auto) (0.0-0.2) /100WBC Sodium (135-145) mmol/L Potassium (3.3-5.1) mmol/L Chloride (96-108) mmol/L Carbon Dioxide (22-29) mmol/L Anion Gap (12-20) BUN (9-16) mg/dL Creatinine (0.5-1.4) mg/dL Estim Creat Clear Calc Estimated GFR Random Glucose (60-115) mg/dL Lactic Acid (0.5-2.0) mmol/L Lactic Acid F/U @ 2Hr (0.5-2.0) mmol/L Calcium (8.4-10.2) mg/dL Total Bilirubin (0.0-1.0) mg/dL Direct Bilirubin (0.0-0.5) mg/dL AST (5-37) U/L ALT (0-40) U/L Alkaline Phosphatase (39-117) U/L Troponin I High Sens 22.7 (<3.5-35.0) ng/L B-Natriuretic Peptide 48 (<100) pg/mL Total Protein (6.5-8.0) g/dL Albumin (3.5-5.0) g/dL Lipase (8-78) U/L Urine Color Yellow Urine Appearance Clear Urine pH 5.0 (5.0-9.0) Ur Specific [place] >= 1.030 H (1.005-1.025) Urine Protein Trace (Neg-Trace) mg/dL Urine Glucose (UA) >=1000 H (Negative) mg/dL Urine Ketones Trace (Negative) mg/dL Urine Blood Trace H (Negative) Urine Nitrite Negative (Negative) Ur Leukocyte Esterase Small (1+) H (Negative) Urine RBC 0-2 (0-2) /HPF Urine WBC 6-10 (0-5) /HPF Ur Squamous Epith Cells 0-2 (0-2) /HPF Urine Bacteria Trace (None Seen) Hyaline Casts 3-5 (0-2) /LPF Urine Yeast Present 01/26/23 01/26/23 01/26/23 Range/Units 11:12 14:17 Unknown WBC 15.2 H (4.8-10.8) X10*3/uL RBC 6.61 H D (4.60-5.80) X10*6/uL Hgb 18.9 H (14.0-18.0) g/dl Hct 63.6 H D (42.0-52.0) % MCV 96.2 (80.0-98.0) fL MCH 28.6 (27.0-33.0) pg MCHC 29.7 L (31.0-36.0) g/dl RDW 15.7 (11.0-16.0) % Plt Count 379 D (160-400) X10*3/uL MPV 11.2 (9.4-12.4) fL Immature Gran % (Auto) 0.6 H (0.0-0.4) % Neut % (Auto) 73.1 H (45-73) % Lymph % (Auto) 15.3 L (20-40) % [place] % (Auto) 7.7 (2-11) % Eos % (Auto) 2.4 (0-4) % Baso % (Auto) 0.9 (0-2) % Lymph # (Auto) 2.3 (1.2-4.9) X10*3/uL [place] # (Auto) 1.2 (0.1-1.2) X10*3/uL Eos # (Auto) 0.4 (0.0-0.4) X10*3/uL Baso # (Auto) 0.1 (0.0-0.2) X10*3/uL Abs Immat Gran (auto) 0.09 H (0.00-0.03) X10*3/uL Absolute Neuts (auto) 11.2 H (2.0-8.3) x10*3/uL Absolute Nucleated RBC 0.000 (0.0-0.012) X10*3/uL Nucleated RBC % (auto) 0.0 (0.0-0.2) /100WBC Sodium (135-145) mmol/L Potassium (3.3-5.1) mmol/L Chloride (96-108) mmol/L Carbon Dioxide (22-29) mmol/L Anion Gap (12-20) BUN (9-16) mg/dL Creatinine (0.5-1.4) mg/dL Estim Creat Clear Calc Estimated GFR Random Glucose (60-115) mg/dL Lactic Acid 3.0 H* (0.5-2.0) mmol/L Lactic Acid F/U @ 2Hr 1.8 (0.5-2.0) mmol/L Calcium (8.4-10.2) mg/dL Total Bilirubin (0.0-1.0) mg/dL Direct Bilirubin (0.0-0.5) mg/dL AST (5-37) U/L ALT (0-40) U/L Alkaline Phosphatase (39-117) U/L Troponin I High Sens (<3.5-35.0) ng/L B-Natriuretic Peptide (<100) pg/mL Total Protein (6.5-8.0) g/dL Albumin (3.5-5.0) g/dL Lipase (8-78) U/L Urine Color Urine Appearance Urine pH (5.0-9.0) Ur Specific [place] (1.005-1.025) Urine Protein (Neg-Trace) mg/dL Urine Glucose (UA) (Negative) mg/dL Urine Ketones (Negative) mg/dL Urine Blood (Negative) Urine Nitrite (Negative) Ur Leukocyte Esterase (Negative) Urine RBC (0-2) /HPF Urine WBC (0-5) /HPF Ur Squamous Epith Cells (0-2) /HPF Urine Bacteria (None Seen) Hyaline Casts (0-2) /LPF Urine Yeast 01/26/23 Range/Units Unknown WBC (4.8-10.8) X10*3/uL RBC (4.60-5.80) X10*6/uL Hgb (14.0-18.0) g/dl Hct (42.0-52.0) % MCV (80.0-98.0) fL MCH (27.0-33.0) pg MCHC (31.0-36.0) g/dl RDW (11.0-16.0) % Plt Count (160-400) X10*3/uL MPV (9.4-12.4) fL Immature Gran % (Auto) (0.0-0.4) % Neut % (Auto) (45-73) % Lymph % (Auto) (20-40) % [place] % (Auto) (2-11) % Eos % (Auto) (0-4) % Baso % (Auto) (0-2) % Lymph # (Auto) (1.2-4.9) X10*3/uL [place] # (Auto) (0.1-1.2) X10*3/uL Eos # (Auto) (0.0-0.4) X10*3/uL Baso # (Auto) (0.0-0.2) X10*3/uL Abs Immat Gran (auto) (0.00-0.03) X10*3/uL Absolute Neuts (auto) (2.0-8.3) x10*3/uL Absolute Nucleated RBC (0.0-0.012) X10*3/uL Nucleated RBC % (auto) (0.0-0.2) /100WBC Sodium 167 H* (135-145) mmol/L Potassium 4.3 (3.3-5.1) mmol/L Chloride 127 H (96-108) mmol/L Carbon Dioxide 25 (22-29) mmol/L Anion Gap 19 (12-20) BUN 47 H (9-16) mg/dL Creatinine 1.56 H (0.5-1.4) mg/dL Estim Creat Clear Calc 31.3 Estimated GFR 43 Random Glucose 270 H (60-115) mg/dL Lactic Acid (0.5-2.0) mmol/L Lactic Acid F/U @ 2Hr (0.5-2.0) mmol/L Calcium 10.4 H D (8.4-10.2) mg/dL Total Bilirubin 0.7 (0.0-1.0) mg/dL Direct Bilirubin 0.2 (0.0-0.5) mg/dL AST 24 (5-37) U/L ALT 31 (0-40) U/L Alkaline Phosphatase 140 H (39-117) U/L Troponin I High Sens (<3.5-35.0) ng/L B-Natriuretic Peptide (<100) pg/mL Total Protein 7.7 (6.5-8.0) g/dL Albumin 4.2 (3.5-5.0) g/dL Lipase 39 (8-78) U/L Urine Color Urine Appearance Urine pH (5.0-9.0) Ur Specific [place] (1.005-1.025) Urine Protein (Neg-Trace) mg/dL Urine Glucose (UA) (Negative) mg/dL Urine Ketones (Negative) mg/dL Urine Blood (Negative) Urine Nitrite (Negative) Ur Leukocyte Esterase (Negative) Urine RBC (0-2) /HPF Urine WBC (0-5) /HPF Ur Squamous Epith Cells (0-2) /HPF Urine Bacteria (None Seen) Hyaline Casts (0-2) /LPF Urine Yeast Independent Interpretation I performed an independent interpretation of an: Plain X-Ray (chest: No acute intrathoracic pathology.) Radiology Impression Discussion of test interpretation with radiology: I have reviewed the radiologist's reading. Discharge Plan Discharge Clinical Impression: Altered mental status, Acute hypernatremia Patient Disposition: Admitted As Inpatient
[2023-01-26] MEDS: 0.9 % Sodium Chloride 1,000 ML 999 ML IV (10:22)
[2023-01-26] MEDS: LORazepam 2 MG/ML VIAL IVPUSH (10:22)
[2023-01-26 10:36] LABS: MANUAL DIFF FLAG NO
[2023-01-26 10:39] LABS: Basophils Absolute Auto 0.1 X10*3/uL (0.0-0.2); Basophils Percent Auto 0.9 % (0-2); Eosinophils Absolute Auto 0.4 X10*3/uL (0.0-0.4); Eosinophils Percent Auto 2.4 % (0-4); Hemoglobin 18.9 g/dl (14.0-18.0); Imm Gran Abs Auto 0.09 X10*3/uL (0.00-0.03); Imm Gran Pct Auto 0.6 % (0.0-0.4); Lymphocytes Absolute Auto 2.3 X10*3/uL (1.2-4.9); Lymphocytes Percent Auto 15.3 % (20-40); Mean Corpuscular HGB Conc 29.7 g/dl (31.0-36.0); Mean Corpuscular Hemoglobin 28.6 pg (27.0-33.0); Mean Corpuscular Volume 96.2 fL (80.0-98.0); Mean Platelet Volume 11.2 fL (9.4-12.4); Monocytes Absolute Auto 1.2 X10*3/uL (0.1-1.2); Monocytes Percent Auto 7.7 % (2-11); Neutrophils Absolute Auto 11.2 x10*3/uL (2.0-8.3); Neutrophils Percent Auto 73.1 % (45-73); Platelet Count 379 X10*3/uL (160-400); Red Blood Count 6.61 X10*6/uL (4.60-5.80); Red Cell Distribution Width 15.7 % (11.0-16.0); White Blood Count 15.2 X10*3/uL (4.8-10.8)
[2023-01-26 10:43] LABS: Hematocrit 63.6 % (42.0-52.0)
[2023-01-26 10:59] LABS: B Type Natriuretic Peptide 48 pg/mL (<100)
[2023-01-26 11:02] LABS: Troponin-I High Sensitivity 22.7 ng/L (<3.5-35.0)
--- NOTE | 2023-01-26 11:02 | PC.NURSE ---
S/P Ativan pt more restful
[2023-01-26 11:05] LABS: Alanine Aminotransferase 31 U/L (0-40); Albumin Level 4.2 g/dL (3.5-5.0); Alkaline Phosphatase 140 U/L (39-117); Aspartate Amino Transferase 24 U/L (5-37); Bilirubin Direct 0.2 mg/dL (0.0-0.5); Bilirubin Total 0.7 mg/dL (0.0-1.0); Blood Urea Nitrogen 47 mg/dL (9-16); Calcium 10.4 mg/dL (8.4-10.2); Creatinine Clr Calc Pharmacy 31.3; Estimated Glomerular Filt Rate 43; Glucose Random 270 mg/dL (60-115); Lipase 39 U/L (8-78); Total Protein 7.7 g/dL (6.5-8.0)
[2023-01-26 11:11] LABS: Anion Gap 19 (12-20); Carbon Dioxide 25 mmol/L (22-29); Chloride 127 mmol/L (96-108); Potassium 4.3 mmol/L (3.3-5.1); Sodium 167 mmol/L (135-145)
[2023-01-26 11:21] LABS: Appearance Urine Clear; Color Urine Yellow; Glucose Urine UA >=1000 mg/dL (Negative); Leukocyte Esterase Urine Small (1+) (Negative); Nitrite Urine Negative (Negative); Specific Gravity - Urine >= 1.030 (1.005-1.025); UMIC TRIGGER UACC YES; Urine Blood Trace (Negative); Urine Ketones Trace mg/dL (Negative); Urine Protein Trace mg/dL (Neg-Trace)
[2023-01-26] MEDS: cefTRIAXone sodium 1 GM in 0.9 % Sodium Chloride 50 ML IV (11:26)
[2023-01-26 11:38] LABS: Bacteria Urine Trace (None Seen); RBC Urine 0-2 /HPF (0-2); Squamous Epithelial Cell Urine 0-2 /HPF (0-2); UACC Culture Trigger YES
[2023-01-26] MEDS: Dextrose 5 % and 0.45 % NaCl 1,000 ML 125 ML IVCONT ×2 (12:14→20:45)
--- NOTE | 2023-01-26 12:17 | PC.NURSE ---
Resting comfortably with no s/s of pain or discomfort. VSS. Fluids running as ordered. 96% on 3 liters o2.
[2023-01-26 13:16] LABS: Reflex Lactate? Lactic Acid Added
[2023-01-26] MEDS: Dextrose 5 % 1,000 ML 250 ML IVCONT ×2 (13:53→22:05)
[2023-01-26 14:32] LABS: ~Lactic Acid-LAB USE ONLY 1.8 mmol/L (0.5-2.0)
--- NOTE | 2023-01-26 15:43 | PHA.MEDREC ---
Pharmacy Consult ? Medication Reconciliation Pharmacy has completed the medication reconciliation. Patient has a med list from [facility].
--- NOTE | 2023-01-26 16:38 | PC.NURSE ---
Continues to rest comfortably. VSS. NSR on monitor. fluids running as ordered
--- NOTE | 2023-01-26 16:43 | P.HPHOSP_ITS ---
History of Present Illness Date of Service: 01/26/23 <TJ Esqueda - Last Filed: 01/26/23 18:41> Attending physician on admission: Mikala Grove <TJ Esqueda - Last Filed: 01/26/23 18:41> Chief Complaint: Altered mental status <TJ Esqueda - Last Filed: 01/26/23 18:41> Pt is a 83-year-old male with a PMH significant for?vascular dementia, COPD, HTN, HLD, insulin-dependent diabetes type 2, hypothyroidism, and hx of CVA who presents to the ED from SNF with altered mental status and decreased p.o. intake. Patient is a resident of [facility] and?at baseline is alert and oriented to self, capable of speaking in full sentences and following commands. Currently patient is not alert and oriented and incapable of providing in HPI, which instead taken from chart and provider review. Patient was sent to the hospital for altered mental status 7 days prior on 01/19/2023. Patient was diagnosed with pyelonephritis and sent home on a 10 day course of cefdinir 300 mg p.o. b.i.d. Facility staff note that the patient's mentation did not improve during the week and he was sent back to the hospital for further evaluation. In the ED patient was afebrile but tachycardic up to 110 and tachypneic up to 24. Labs were significant for leukocytosis of 15.2, H&H of 18.9/63.6, hypernatremia of 167, chloride of 127, BUN of 47, creatinine 1.56. UA negative for UTI. CXR showed no evidence of pneumonia or congestive heart failure. Pt was treated with IVF, lorazepam, ceftriaxone, and started on D5W. Pt will be admitted to the hospital on telemetry for treatment and further evaluation of hypernatremia and REINIER. <TJ Esqueda - Last Filed: 01/26/23 18:41> Review of Systems Review of Systems: Unable to obtain due to patient's mentation. <TJ Esqueda - Last Filed: 01/26/23 18:41> [facility] Medical History: Medical History Cerebral infarction Cognitive communication deficit COPD (chronic obstructive pulmonary disease) Depressive disorder Diabetes Dysphagia Hearing loss Hemiplegia HTN (hypertension) Hyperlipemia Vascular dementia <TJ Esqueda - Last Filed: 01/26/23 18:41> Social History: Social History Household Members: Unknown / Unable to assess Housing: Unknown / Unable to assess Unable to assess alcohol history related to: Unable to respond and Unknown Alcohol intake: never Patient Tobacco Use Status: Tobacco use Unknown Smoked in Last 30 Days: No Use of substances other than those prescribed or required for medical reasons: Unknown Last Used Substance: Unknown Currently Displaying Signs/Symptoms of Drug Intoxication Withdrawal: No Advance Directives: No Advance Directives Information Provided: No Do you have thoughts of harming others: None Do you have a plan to hurt others: No Plan service: No Current occupational status: disabled <TJ Esqueda - Last Filed: 01/26/23 18:41> Meds Allergies/Adverse reactions: Allergies Allergy/AdvReac Type Severity Reaction Status Date / Time No Known Allergies Allergy Intermediate UNKNOWN Verified 01/22/23 12:01 [NO KNOWN ALLERGIES] <TJ Esqueda - Last Filed: 01/26/23 18:41> Active Medications: Current Medications Dextrose/Sodium Chloride (D51/2ns) 1,000 mls @ 125 mls/hr IVCONT .Q8H [facility] Last Infusion: 01/26/23 13:52 Dose: 0 mls/hr Dextrose (D5w) 1,000 mls @ 250 mls/hr IVCONT .Q4H [facility] Last Admin: 01/26/23 13:53 Dose: 250 mls/hr Pharmacy Consult (Consult Rx Perform Med Rec) 1 each MISCELLANE ONCE PRN PRN Reason: Consult order <TJ Esqueda - Last Filed: 01/26/23 18:41> Home medications: Home Medications Medication Instructions Recorded Confirmed Last Taken Type acetaminophen 325 mg tablet 325 mg PO BID 08/13/20 01/26/23 01/26/23 06:00 History albuterol sulfate 90 mcg/actuation 2 puff inhalation BID 08/13/20 01/26/23 01/26/23 06:00 History aerosol inhaler (ProAir HFA) aspirin 81 mg chewable tablet 81 mg PO DAILY 08/13/20 01/26/23 01/26/23 History atorvastatin 40 mg tablet (Lipitor) 40 mg PO BEDTIME 08/13/20 01/26/23 01/25/23 History docusate sodium 100 mg capsule 200 mg PO DAILY 08/13/20 01/26/23 01/26/23 History (Colace) insulin aspart U-100 100 unit/mL 1 sliding scale dose subcut 08/13/20 01/26/23 01/25/23 History subcutaneous solution USEASDIRECTD lisinopril 10 mg tablet 10 mg PO DAILY 08/13/20 01/26/23 01/26/23 History melatonin 3 mg tablet 3 mg PO BEDTIME 08/13/20 01/26/23 01/25/23 History metformin 1,000 mg tablet 1,000 mg PO BID 08/13/20 01/26/23 01/26/23 06:00 History sennosides 8.6 mg capsule (senna) 8.6 mg PO BEDTIME 08/13/20 01/26/23 01/25/23 History acetaminophen 325 mg tablet 650 mg PO Q6H PRN Fever Or Pain 01/26/23 01/26/23 Unknown History (Tylenol) aluminum-mag hydroxide-simethicone 5 ml PO Q4H PRN Heartburn 01/26/23 01/26/23 Unknown History 200 mg-200 mg-20 mg/5 mL oral susp bisacodyl 10 mg rectal suppository 10 mg UT DAILY PRN Constipation 01/26/23 01/26/23 Unknown History dapagliflozin 10 mg tablet 10 mg PO DAILY 01/26/23 01/26/23 01/26/23 History (Farxiga) dulaglutide 1.5 mg/0.5 mL 1.5 mg subcut WE@0900 01/26/23 01/26/23 Unknown History subcutaneous pen injector (Trulicity) levothyroxine 25 mcg tablet 25 mcg PO DAILY@59901/26/23 01/26/23 01/26/23 History metoprolol succinate 25 mg 75 mg PO BEDTIME 01/26/23 01/26/23 01/25/23 History tablet,extended release 24 hr peg [id number] 1 1 drp ophthalmic (eye) TID PRN Dry 01/26/23 01/26/23 Unknown History %-0.2 %-0.2 % eye drops Eyes (Artificial Tears ([id number])) sennosides 8.6 mg tablet (senna) 8.6 mg PO DAILY PRN Constipation 01/26/23 01/26/23 Unknown History sodium phosphates 19 gram-7 118 ml UT DAILY PRN Constipation 01/26/23 01/26/23 Unknown History gram/118 mL enema (Fleet Enema) <TJ Esqueda - Last Filed: 01/26/23 18:41> Physical Exam Vital Signs and Narrative: Vital Signs: Last Vital Signs Temp 97.3 F 01/26/23 12:00 Pulse 93 01/26/23 16:37 Resp 18 01/26/23 16:37 BP 167/57 H 01/26/23 16:37 Pulse Ox 99 01/26/23 16:37 O2 Del Method Room Air, Nasal C annula 01/26/23 16:37 O2 Flow Rate 3 01/26/23 16:37 Oxygen Flow Rate 3 01/26/23 09:58 BMI result Body Mass Index 20.1 <TJ Esqueda - Last Filed: 01/26/23 18:41> Constitutional: Somnolent with eyes close, moaning/calling out, incapale of speaking in sentences or following commands, in no acute distress. Mental Status: Confused, not oriented. Eyes: Pupils are equal, round, and reactive to light. Ear, Nose, and Throat: Oropharynx clear, mucous membranes dry. Ears and nose without deformities. Trachea midline. Respiratory: Clear to auscultation bilaterally. No wheezing, rales, or rhonchi. Cardiovascular: S1, S2 tachycardic. No murmurs, rubs, or gallops. Gastrointestinal: Abdomen soft, non-tender, non-distended. Normal bowel sounds. Neurologic: Moves all extremities spontaneously. Skin: Warm, dry. Musculoskeletal: No cyanosis or clubbing. Extremities: No edema. Psychiatric: Confused, incapable of following commands or speaking in sentences. <TJ Esqueda - Last Filed: 01/26/23 18:41> Results Labs CBC and Chem 7: 01/26/23 Unknown 01/26/23 Unknown <TJ Esqueda - Last Filed: 01/26/23 18:41> Labs: Laboratory Results - last 24 hr 01/26/23 01/26/23 01/26/23 10:29 10:29 11:05 MCV MCH MCHC RDW Plt Count MPV Immature Gran % (Auto) Neut % (Auto) Lymph % (Auto) [place] % (Auto) Eos % (Auto) Baso % (Auto) Lymph # (Auto) [place] # (Auto) Eos # (Auto) Baso # (Auto) Abs Immat Gran (auto) Absolute Neuts (auto) Absolute Nucleated RBC Nucleated RBC % (auto) Anion Gap Estim Creat Clear Calc Estimated GFR Random Glucose Lactic Acid Lactic Acid F/U @ 2Hr Calcium Total Bilirubin Direct Bilirubin AST ALT Alkaline Phosphatase Troponin I High Sens 22.7 B-Natriuretic Peptide 48 Total Protein Albumin Lipase Urine Color Yellow Urine Appearance Clear Urine pH 5.0 Ur Specific [place] >= 1.030 H Urine Protein Trace Urine Glucose (UA) >=1000 H Urine Ketones Trace Urine Blood Trace H Urine Nitrite Negative Ur Leukocyte Esterase Small (1+) H Urine RBC 0-2 Urine WBC 6-10 Ur Squamous Epith Cells 0-2 Urine Bacteria Trace Hyaline Casts 3-5 Urine Yeast Present 01/26/23 01/26/23 01/26/23 11:12 14:17 Unknown MCV 96.2 MCH 28.6 MCHC 29.7 L RDW 15.7 Plt Count 379 D MPV 11.2 Immature Gran % (Auto) 0.6 H Neut % (Auto) 73.1 H Lymph % (Auto) 15.3 L [place] % (Auto) 7.7 Eos % (Auto) 2.4 Baso % (Auto) 0.9 Lymph # (Auto) 2.3 [place] # (Auto) 1.2 Eos # (Auto) 0.4 Baso # (Auto) 0.1 Abs Immat Gran (auto) 0.09 H Absolute Neuts (auto) 11.2 H Absolute Nucleated RBC 0.000 Nucleated RBC % (auto) 0.0 Anion Gap Estim Creat Clear Calc Estimated GFR Random Glucose Lactic Acid 3.0 H* Lactic Acid F/U @ 2Hr 1.8 Calcium Total Bilirubin Direct Bilirubin AST ALT Alkaline Phosphatase Troponin I High Sens B-Natriuretic Peptide Total Protein Albumin Lipase Urine Color Urine Appearance Urine pH Ur Specific [place] Urine Protein Urine Glucose (UA) Urine Ketones Urine Blood Urine Nitrite Ur Leukocyte Esterase Urine RBC Urine WBC Ur Squamous Epith Cells Urine Bacteria Hyaline Casts Urine Yeast 01/26/23 Unknown MCV MCH MCHC RDW Plt Count MPV Immature Gran % (Auto) Neut % (Auto) Lymph % (Auto) [place] % (Auto) Eos % (Auto) Baso % (Auto) Lymph # (Auto) [place] # (Auto) Eos # (Auto) Baso # (Auto) Abs Immat Gran (auto) Absolute Neuts (auto) Absolute Nucleated RBC Nucleated RBC % (auto) Anion Gap 19 Estim Creat Clear Calc 31.3 Estimated GFR 43 Random Glucose 270 H Lactic Acid Lactic Acid F/U @ 2Hr Calcium 10.4 H D Total Bilirubin 0.7 Direct Bilirubin 0.2 AST 24 ALT 31 Alkaline Phosphatase 140 H Troponin I High Sens B-Natriuretic Peptide Total Protein 7.7 Albumin 4.2 Lipase 39 Urine Color Urine Appearance Urine pH Ur Specific [place] Urine Protein Urine Glucose (UA) Urine Ketones Urine Blood Urine Nitrite Ur Leukocyte Esterase Urine RBC Urine WBC Ur Squamous Epith Cells Urine Bacteria Hyaline Casts Urine Yeast <TJ Esqueda - Last Filed: 01/26/23 18:41> Imaging Radiologist's Impressions: Impressions Chest X-Ray 01/26/23 10:35 IMPRESSION: * No evidence of pneumonia or congestive heart failure. * Lungs are hyperexpanded. Correlate for any history of obstructive pulmonary disease. <TJ Esqueda Last Filed: 01/26/23 18:41> Assessment and Plan (1) Altered mental status: Status: Acute <TJ Esqueda Last Filed: 01/26/23 18:41> (2) Acute hypernatremia: Status: Acute <TJ Esuqeda Last Filed: 01/26/23 18:41> (3) Hyperchloremia: Status: Acute <TJ Esqueda Last Filed: 01/26/23 18:41> Pt is a 83-year-old male with a PMH significant for?vascular dementia, COPD, HTN, HLD, insulin-dependent diabetes type 2, hypothyroidism, and hx of CVA who presents to the ED from SNF with altered mental status and decreased p.o. intake. Pt will be admitted to the hospital on telemetry for treatment and further evaluation of hypernatremia and REINIER Acute hypernatremia, hyperchloremia Patient's sodium 167 and chloride 127 time of presentation Likely secondary to dehydration from reduced p.o. intake Patient treated with 1L D5W over 4 hours, then D5W at 125 mls/hr BMP q4h x3, then recheck labs in the morning Nephrology consult Seizure precautions Monitor on telemetry Acute toxic metabolic encephalopathy Likely secondary to hypernatremia Patient with vascular dementia, AOx1 at baseline, able to speak and follow basic commands; pt not yet back to baseline Treat as above Monitor mentation REINIER Creatinine 1.56 Likely secondary to dehydration from reduced p.o. intake Pt being resusitated with IVF Follow BMP Pyelonephritis Patient previously presented to ED on 01/19/2023 and diagnosed with pyelonephritis UA currently negative for UTI WBC elevated at 15.2, though this is likely hemoconcentrated and patient with chronically elevated WBC Will give ceftriaxone x3 doses to finish 10 day course of antibiotic treatment, started 01/26/2023 Pt does not meet sepsis criteria: Leukocytosis d/t hemoconcentration and chronically elevated WBC, tachycardia due to hypernatremia Diet Pureed and nectar thick for now Will get speech bedside swallow evaluation Dibetic, low-salt diet HTN Hold lisinopril due to REINIER HLD Continue statin COPD Continue home inhalers Full Code Attending:?Dr. Grove DVT Prophylaxis: Lovenox Pt will require a hospitalization of at least two nights for treatment of?hypernatremia, hyperchloremia, and REINIER with IV hypotonic fluids and close laboratory monitoring. <TJ Esqueda - Last Filed: 01/26/23 18:41> Pt is a 83-year-old male with a PMH significant for?vascular dementia, COPD, HTN, HLD, insulin-dependent diabetes type 2, hypothyroidism, and hx of CVA who presents to the ED from SNF with altered mental status and decreased p.o. intake. Pt will be admitted to the hospital on telemetry for treatment and further evaluation of hypernatremia and REINIER Acute hypernatremia, hyperchloremia Patient's sodium 167 and chloride 127 time of presentation Likely secondary to dehydration from reduced p.o. intake Patient treated with 1L D5W over 4 hours, then D5W at 125 mls/hr BMP q4h x3, then recheck labs in the morning Nephrology consult Seizure precautions Monitor on telemetry Acute toxic metabolic encephalopathy Likely secondary to hypernatremia Patient with vascular dementia, AOx1 at baseline, able to speak and follow basic commands; pt not yet back to baseline Treat as above Monitor mentation REINIER Creatinine 1.56 Likely secondary to dehydration from reduced p.o. intake Pt being resusitated with IVF Follow BMP Pyelonephritis Patient previously presented to ED on 01/19/2023 and diagnosed with pyelonephritis UA currently negative for UTI WBC elevated at 15.2, though this is likely hemoconcentrated and patient with chronically elevated WBC Will give ceftriaxone x3 doses to finish 10 day course of antibiotic treatment, started 01/26/2023 Pt does not meet sepsis criteria: Leukocytosis d/t hemoconcentration and chronically elevated WBC, tachycardia due to hypernatremia Diet Pureed and nectar thick for now Will get speech bedside swallow evaluation Dibetic, low-salt diet HTN Hold lisinopril due to REINIER HLD Continue statin COPD Continue home inhalers Full Code Attending:?Dr. Grove DVT Prophylaxis: Lovenox Pt will require a hospitalization of at least two nights for treatment of?hypernatremia, hyperchloremia, and REINIER with IV hypotonic fluids and close laboratory monitoring. Addendum to history and physical by the advanced practice provider, TJ Beck I interviewed and examined the patient. I discussed their presentation and management with the MATTEO. I reviewed the history and physical and agree with the documentation, with the following additions and corrections: 83yo M long-term resident of [facility] with vascular dementia, COPD, HTN, HLD, DM2, hypothyroidism, prior CVA presenting with AMS, decreased PO. Recently diagnosed with pyelonephritis and started on cefdinir. On presentation, markedly dehydrated with Na 167, Cl 127, SCr 1.56. Plan admit to [facility], replete free water IV with frequent Na checks, consult Nephrology <Mikala Grove MD - Last Filed: 01/27/23 11:01> Time Spent With Patient Time: Total time managing care of this patient today ____ minutes. <TJ Esqueda - Last Filed: 01/26/23 18:41> Quality Stroke Does the patient have a stroke diagnosis?: No <TJ Esqueda - Last Filed: 01/26/23 18:41> VTE Prior VTE?: No <TJ Esqueda - Last Filed: 01/26/23 18:41> VTE Risk Level:: Medical - moderate - high <TJ Esqueda - Last Filed: 01/26/23 18:41> VTE Device Contraindication: Treatment Not Indicated <TJ Esqueda - Last Filed: 01/26/23 18:41> VTE Drug Contraindication: N/A - Med Ordered <TJ Esqueda - Last Filed: 01/26/23 18:41>
--- NOTE | 2023-01-26 16:53 | PC.NURSE ---
incontinent of large amount of urine. Incontinent care provided. buttocks intact, pink but blanchable
[2023-01-26] MEDS: Enoxaparin Sodium 40 MG/0.4 ML SYRINGE SUBCUT (18:02)
[2023-01-26 19:41] LABS: Anion Gap 15 (12-20); Blood Urea Nitrogen 41 mg/dL (9-16); Carbon Dioxide 25 mmol/L (22-29); Chloride 130 mmol/L (96-108); Creatinine Clr Calc Pharmacy 37.2; Estimated Glomerular Filt Rate 52; Glucose Random 284 mg/dL (60-115); Potassium 5.1 mmol/L (3.3-5.1); Sodium 165 mmol/L (135-145)
[2023-01-26 19:55] LABS: Glucose, Whole Blood 159 mg/dL (60-115)
[2023-01-26] MEDS: Insulin Lispro 100 UNIT/ML 3 ML VIAL SUBCUT (20:50)
[2023-01-26] MEDS: 0.9 % Sodium Chloride Flush 3 ML SYRINGE IVFLUSH (20:54)
[2023-01-26 22:34] LABS: Anion Gap 13 (12-20); Blood Urea Nitrogen 37 mg/dL (9-16); Calcium 9.3 mg/dL (8.4-10.2); Carbon Dioxide 27 mmol/L (22-29); Chloride 131 mmol/L (96-108); Creatinine Clr Calc Pharmacy 44.3; Estimated Glomerular Filt Rate > 60; Glucose Random 136 mg/dL (60-115); Potassium 4.5 mmol/L (3.3-5.1); Sodium 166 mmol/L (135-145)
[2023-01-27] VITALS (11 sets, daily range): BP systolic 121–173; BP diastolic 58–76; PULSE 80–138; RESP 20; TEMP 36–37.2; O2SAT 93–100
[2023-01-27 00:20] LABS: Anion Gap 12 (12-20); Blood Urea Nitrogen 36 mg/dL (9-16); Calcium 9.1 mg/dL (8.4-10.2); Carbon Dioxide 27 mmol/L (22-29); Chloride 129 mmol/L (96-108); Creatinine Clr Calc Pharmacy 47.3; Estimated Glomerular Filt Rate > 60; Glucose Random 112 mg/dL (60-115); Potassium 4.3 mmol/L (3.3-5.1); Sodium 164 mmol/L (135-145)
[2023-01-27 00:24] LABS: Osmolality Urine 889 mosm/kg (373-1093)
[2023-01-27 01:26] LABS: Anion Gap 13 (12-20); Blood Urea Nitrogen 35 mg/dL (9-16); Calcium 9.1 mg/dL (8.4-10.2); Carbon Dioxide 27 mmol/L (22-29); Chloride 127 mmol/L (96-108); Creatinine Clr Calc Pharmacy 47.3; Estimated Glomerular Filt Rate > 60; Glucose Random 165 mg/dL (60-115); Potassium 4.7 mmol/L (3.3-5.1); Sodium 162 mmol/L (135-145)
[2023-01-27] MEDS: Dextrose 5 % 1,000 ML 250 ML IVCONT ×2 (02:37→04:49)
[2023-01-27 03:41] LABS: Anion Gap 15 (12-20); Blood Urea Nitrogen 33 mg/dL (9-16); Calcium 9.1 mg/dL (8.4-10.2); Carbon Dioxide 26 mmol/L (22-29); Chloride 124 mmol/L (96-108); Creatinine Clr Calc Pharmacy 45.5; Estimated Glomerular Filt Rate > 60; Glucose Random 237 mg/dL (60-115); Potassium 4.2 mmol/L (3.3-5.1); Sodium 161 mmol/L (135-145)
[2023-01-27 04:50] LABS: Hemoglobin 15.2 g/dl (14.0-18.0); Mean Corpuscular HGB Conc 29.8 g/dl (31.0-36.0); Mean Corpuscular Hemoglobin 29.5 pg (27.0-33.0); Mean Platelet Volume 11.1 fL (9.4-12.4); Platelet Count 262 X10*3/uL (160-400); Red Blood Count 5.15 X10*6/uL (4.60-5.80); Red Cell Distribution Width 14.6 % (11.0-16.0)
[2023-01-27 05:09] LABS: Anion Gap 15 (12-20); Blood Urea Nitrogen 31 mg/dL (9-16); Carbon Dioxide 25 mmol/L (22-29); Chloride 124 mmol/L (96-108); Creatinine Clr Calc Pharmacy 45.1; Estimated Glomerular Filt Rate > 60; Glucose Random 292 mg/dL (60-115); Potassium 5.5 mmol/L (3.3-5.1); Sodium 158 mmol/L (135-145)
[2023-01-27 07:41] LABS: Glucose, Whole Blood 72 mg/dL (60-115)
--- NOTE | 2023-01-27 09:53 | MHC.CM.PN ---
IMM 01/27/23 Spoke w Litzy Epstein, Guardian. She verbalized understanding of Patients medicare rights. Patient from [facility]. He is admitted with AMS and Hypernatremia. Patient dependent with care. DP return to [facility] via BLS.
--- NOTE | 2023-01-27 11:01 | HO.PM.IMPN ---
Subjective Subjective Date of Service: 01/27/23 Interval History: minimally verbal, unable to obtain ROS Na 165->167->158, D5W discontinued Review of Systems Review of Systems: Yes Unobtainable due to mental status Physical Exam Vital Signs: Vital Signs: Last Vital Signs Temp 96.8 F 01/27/23 07:31 Pulse 96 01/27/23 07:31 Resp 20 01/27/23 07:31 BP 173/67 H 01/27/23 07:31 Pulse Ox 93 01/27/23 07:31 O2 Del Method Nasal Cannula 01/27/23 07:31 O2 Flow Rate 3 01/27/23 07:31 Oxygen Flow Rate 3 01/26/23 09:58 BMI result Body Mass Index 19.9 Gen: in no acute distress, largely non-verbal HEENT: sclera anicteric, dry mucus membranes Neck: supple Lungs: clear to auscultation bilaterally Heart: regular rate and rhythm, no murmurs Abd: soft, non-tender, non-distended : Galaviz with bloody urine Ext: no edema Skin: warm/well-perfused Neuro: non-verbal, moving all extremities Psych: impaired insight Objective Data Active Medications Acetaminophen (Acetaminophen 325 Mg Tablet) 650 mg PO Q6H PRN PRN Reason: Pain, Mild (Pain Scale 1-3) Docusate Sodium (Docusate Sodium 100 Mg Capsule) 100 mg PO DAILY PRN PRN Reason: Constipation Enoxaparin Sodium (Enoxaparin Sodium 40 Mg/0.4 Ml Syringe) 40 mg SUBCUT Q24H FORMERLY [facility], [facility]1983 Last Admin: 01/26/23 18:02 Dose: 40 mg Documented By: HARRISON Glucose (Glucose Gel 15 Gm Gel..Gram.) 15 gm PO Q15M PRN; Protocol PRN Reason: per Hypoglycemia Standing Ord. Ceftriaxone Sodium 1 gm/ (Sodium Chloride) 50 mls @ 100 mls/hr IV Q24H [facility], [facility]1983 Stop: 01/30/23 10:59 Dextrose (D10) 250 mls @ 750 mls/hr IV Q15M PRN; Protocol PRN Reason: per Hypoglycemia Standing Ord. Insulin Human Lispro (Insulin Lispro 100 Unit/Ml 3 Ml Vial) 0 unit SUBCUT QIDACHS FORMERLY [facility], [facility]; Protocol Last Admin: 01/27/23 07:40 Dose: Not Given Documented By: MUKESH Non-Admin Reason: No Insulin Coverage Ondansetron HCl (Ondansetron Hcl 4 Mg/2 Ml Vial) 4 mg IVPUSH Q8H PRN PRN Reason: Nausea and Vomiting Pharmacy Consult (Consult Rx Perform Med Rec) 1 each MISCELLANE ONCE PRN PRN Reason: Consult order Sodium Chloride (0.9 % Sodium Chloride Flush 3 Ml Syringe) 3 ml IVFLUSH QSHIFT [facility], [facility] Last Admin: 01/27/23 08:47 Dose: Not Given Documented By: MUKESH Non-Admin Reason: IV Running Labs 01/27/23 04:43 01/27/23 04:43 Labs: Laboratory Results - last 24 hr 01/26/23 01/26/23 01/26/23 10:29 11:05 11:12 MCV MCH MCHC RDW Plt Count MPV Absolute Nucleated RBC Nucleated RBC % (auto) Anion Gap Estim Creat Clear Calc Estimated GFR POC Glucose Random Glucose Lactic Acid 3.0 H* Lactic Acid F/U @ 2Hr Calcium Total Bilirubin Direct Bilirubin AST ALT Alkaline Phosphatase Troponin I High Sens 22.7 Total Protein Albumin Lipase Urine Color Yellow Urine Appearance Clear Urine pH 5.0 Ur Specific [place] >= 1.030 H Urine Protein Trace Urine Glucose (UA) >=1000 H Urine Ketones Trace Urine Blood Trace H Urine Nitrite Negative Ur Leukocyte Esterase Small (1+) H Urine RBC 0-2 Urine WBC 6-10 Ur Squamous Epith Cells 0-2 Urine Bacteria Trace Hyaline Casts 3-5 Urine Yeast Present Urine Osmolality 01/26/23 01/26/23 01/26/23 14:17 18:40 19:45 MCV MCH MCHC RDW Plt Count MPV Absolute Nucleated RBC Nucleated RBC % (auto) Anion Gap 15 Estim Creat Clear Calc 37.2 Estimated GFR 52 POC Glucose 159 H Random Glucose 284 H Lactic Acid Lactic Acid F/U @ 2Hr 1.8 Calcium 9.0 D Total Bilirubin Direct Bilirubin AST ALT Alkaline Phosphatase Troponin I High Sens Total Protein Albumin Lipase Urine Color Urine Appearance Urine pH Ur Specific [place] Urine Protein Urine Glucose (UA) Urine Ketones Urine Blood Urine Nitrite Ur Leukocyte Esterase Urine RBC Urine WBC Ur Squamous Epith Cells Urine Bacteria Hyaline Casts Urine Yeast Urine Osmolality 01/26/23 01/26/23 01/26/23 21:53 23:21 23:30 MCV MCH MCHC RDW Plt Count MPV Absolute Nucleated RBC Nucleated RBC % (auto) Anion Gap 13 12 Estim Creat Clear Calc 44.3 47.3 Estimated GFR > 60 > 60 POC Glucose Random Glucose 136 H 112 Lactic Acid Lactic Acid F/U @ 2Hr Calcium 9.3 9.1 Total Bilirubin Direct Bilirubin AST ALT Alkaline Phosphatase Troponin I High Sens Total Protein Albumin Lipase Urine Color Urine Appearance Urine pH Ur Specific [place] Urine Protein Urine Glucose (UA) Urine Ketones Urine Blood Urine Nitrite Ur Leukocyte Esterase Urine RBC Urine WBC Ur Squamous Epith Cells Urine Bacteria Hyaline Casts Urine Yeast Urine Osmolality 889 01/26/23 01/27/23 01/27/23 Unknown 00:54 03:03 MCV MCH MCHC RDW Plt Count MPV Absolute Nucleated RBC Nucleated RBC % (auto) Anion Gap 19 13 15 Estim Creat Clear Calc 31.3 47.3 45.5 Estimated GFR 43 > 60 > 60 POC Glucose Random Glucose 270 H 165 H 237 H Lactic Acid Lactic Acid F/U @ 2Hr Calcium 10.4 H D 9.1 9.1 Total Bilirubin 0.7 Direct Bilirubin 0.2 AST 24 ALT 31 Alkaline Phosphatase 140 H Troponin I High Sens Total Protein 7.7 Albumin 4.2 Lipase 39 Urine Color Urine Appearance Urine pH Ur Specific [place] Urine Protein Urine Glucose (UA) Urine Ketones Urine Blood Urine Nitrite Ur Leukocyte Esterase Urine RBC Urine WBC Ur Squamous Epith Cells Urine Bacteria Hyaline Casts Urine Yeast Urine Osmolality 01/27/23 01/27/23 01/27/23 04:43 04:43 07:38 MCV 99.0 H MCH 29.5 MCHC 29.8 L RDW 14.6 Plt Count 262 D MPV 11.1 Absolute Nucleated RBC 0.000 Nucleated RBC % (auto) 0.0 Anion Gap 15 Estim Creat Clear Calc 45.1 Estimated GFR > 60 POC Glucose 72 Random Glucose 292 H Lactic Acid Lactic Acid F/U @ 2Hr Calcium 9.0 Total Bilirubin Direct Bilirubin AST ALT Alkaline Phosphatase Troponin I High Sens Total Protein Albumin Lipase Urine Color Urine Appearance Urine pH Ur Specific [place] Urine Protein Urine Glucose (UA) Urine Ketones Urine Blood Urine Nitrite Ur Leukocyte Esterase Urine RBC Urine WBC Ur Squamous Epith Cells Urine Bacteria Hyaline Casts Urine Yeast Urine Osmolality Assessment and Plan (1) Hypernatremia: Status: Acute Plan d#2 83yo M long-term resident of [facility] with vascular dementia, COPD, HTN, HLD, DM2, hypothyroidism, prior CVA presenting with AMS, decreased PO.? Recently diagnosed with pyelonephritis and started on cefdinir.? On presentation, markedly dehydrated with Na 167, Cl 127, SCr 1.56. # hypo-volemic hypernatremia - goal to correct to no less than 155 by 18:40. d/c D5W. continue q4h Na checks. Nephrology consult pending # prerenal REINIER - resolved with free water repletion # acute metabolic encephalopathy - due to hyperNa, baseline vascular dementia, able to speak + follow basic commands when well - NDD 1 solids, nectar thick liquids for now, CLOTH CUTTING MACHINE OPERATOR consultation # pyelonephritis, previously diagnosed - previously on cefdinir, has 3 more doses of ceftriaxone left # HTN - lisinopril held due to REINIER; continue metoprolol succinate # HLD - statin # prostatism - continue finasteride. hold LMWH + ASA due to hematuria [traumatic Galaviz insertion] # hypothyroidism - LT4 # DM2 - margarita- dose lispro # COPD - continue inhalers # VTE ppx: SCDs # dispo: eventual return to [facility] In my clinical judgment, the patient requires continued inpatient hospitalization for the following reasons: electrolyte abnormality Time Spent With Patient Time: Total time managing care of this patient today __40__ minutes. Quality Stroke Does the patient have a stroke diagnosis?: No VTE Prior VTE?: No VTE Risk Level:: Medical - moderate - high VTE Device Contraindication: Treatment Not Indicated VTE Drug Contraindication: N/A - Med Ordered
[2023-01-27 11:11] LABS: Glucose, Whole Blood 119 mg/dL (60-115)
[2023-01-27] MEDS: cefTRIAXone sodium 1 GM in 0.9 % Sodium Chloride 50 ML IV (11:25)
[2023-01-27 15:16] LABS: Sodium 156 mmol/L (135-145)
[2023-01-27 15:21] LABS: Anion Gap 15 (12-20); Blood Urea Nitrogen 24 mg/dL (9-16); Calcium 9.1 mg/dL (8.4-10.2); Carbon Dioxide 26 mmol/L (22-29); Chloride 120 mmol/L (96-108); Creatinine Clr Calc Pharmacy 51.9; Estimated Glomerular Filt Rate > 60; Glucose Random 207 mg/dL (60-115); Potassium 4.7 mmol/L (3.3-5.1); Sodium 156 mmol/L (135-145)
[2023-01-27 16:08] LABS: Glucose, Whole Blood 103 mg/dL (60-115)
[2023-01-27 18:49] LABS: Sodium 157 mmol/L (135-145)
[2023-01-27 19:38] LABS: Glucose, Whole Blood 162 mg/dL (60-115)
[2023-01-27] MEDS: Sennosides 8.6 MG TABLET PO (19:40)
[2023-01-27] MEDS: Atorvastatin Calcium 40 MG TABLET PO (19:40)
[2023-01-27] MEDS: Metoprolol Succinate ER 25 MG TAB.ER.24H 75 MG PO (19:40)
[2023-01-27] MEDS: Melatonin 3 MG TABLET PO (19:41)
[2023-01-27] MEDS: 0.9 % Sodium Chloride Flush 3 ML SYRINGE IVFLUSH (19:45)
[2023-01-27] MEDS: Acetaminophen 325 MG TABLET 650 MG PO (21:53)
[2023-01-27 22:25] LABS: Sodium 153 mmol/L (135-145)
[2023-01-28 03:37] VITALS: BP 124/60; PULSE 96; RESP 20; TEMP 36.4; O2SAT 94
[2023-01-28] MEDS: Levothyroxine Sodium 25 MCG TABLET PO (05:27)
--- NOTE | 2023-01-28 05:39 | CONS_ITS ---
DATE OF SERVICE: 01/27/2023 REASON FOR CONSULTATION: I was asked to see patient to assist in evaluation and management of patient's hypernatremia as reflected by serum sodium of 167 on admission yesterday. 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 Apparently, he was in the emergency room approximately a week ago with altered mental status and was evaluated at that time. His serum sodium was 148, and there was concern for urinary tract infection and started on antibiotics. He now presents with grossly severe hypernatremia as mentioned with a serum sodium 167. Information was obtained from electronic medical record as patient identifying information. PAST MEDICAL HISTORY: As alluded to above. MEDICATIONS: On admission are noted in the admitting notes. Current medications noted in the MAR. He was given D5W, the serum sodium has come down to 158. ALLERGIES: HE HAS NO KNOWN DRUG ALLERGIES. REVIEW OF SYSTEMS: Unobtainable. FAMILY HISTORY: Also unobtainable. PHYSICAL EXAMINATION: VITAL SIGNS: Blood pressure 128/70 with a heart rate in the 80s. HEAD: Atraumatic and normocephalic. NECK: Mucous membranes dry. LUNGS: Breath sounds bilaterally. CARDIAC: Regular rate and rhythm. ABDOMEN: Soft, nontender. EXTREMITIES: Show tenting of the skin. LABORATORY DATA: From admission showed a serum sodium of 167. Most recent serum sodium is down to 156 at 2:30 p.m. today. He had urine studies done, which showed a urine osm of 889. Hemoglobin was 18.9, hematocrit 63. He has come down to hemoglobin of 15.2 and 51 with IV fluids. IMPRESSION: 83-YEAR-OLD HALFWAY PATIENT ADMITTED TO THE HOSPITAL WITH ALTERED MENTAL STATUS AND SEVERE HYPERNATREMIA. Hypernatremia. He currently has a significant free water deficit. He is currently getting D5W to replace the free water deficit. hyponatremia correction of hypernatremia is concerning if it is reactively corrected. Nevertheless, there is no urgency correcting it super fast, but nonetheless we will continue with IV hypertonic fluid to try and continue as this will help with altered mental status. Question the cause of his hypernatremia presumably is due to poor p.o. intake. His urine osm is appropriately concentrated, which goes against underlying diabetes insipidus. RECOMMENDATIONS: At this time include: Continue with IV hypertonic fluids. Continue to monitor serum sodiums. Depending on his clinical course, we will make further adjustments in the IV hypertonic fluids. MD IRMA Hardwick/KIM / [id number]
[2023-01-28 06:37] LABS: Anion Gap 15 (12-20); Blood Urea Nitrogen 27 mg/dL (9-16); Calcium 9.2 mg/dL (8.4-10.2); Carbon Dioxide 25 mmol/L (22-29); Chloride 121 mmol/L (96-108); Creatinine Clr Calc Pharmacy 45.5; Estimated Glomerular Filt Rate > 60; Glucose Random 172 mg/dL (60-115); Potassium 4.7 mmol/L (3.3-5.1); Sodium 156 mmol/L (135-145)
[2023-01-28 06:52] LABS: Hematocrit 51.3 % (42.0-52.0); Hemoglobin 15.4 g/dl (14.0-18.0); Mean Corpuscular Hemoglobin 28.8 pg (27.0-33.0); Mean Corpuscular Volume 96.1 fL (80.0-98.0); Mean Platelet Volume 11.7 fL (9.4-12.4); Platelet Count 259 X10*3/uL (160-400); Red Blood Count 5.34 X10*6/uL (4.60-5.80); Red Cell Distribution Width 14.2 % (11.0-16.0); White Blood Count 9.7 X10*3/uL (4.8-10.8)
[2023-01-28] MEDS: Dextrose 5 % 1,000 ML 100 ML IVCONT ×2 (07:52→22:23)
[2023-01-28] MEDS: Dextrose 10 % 250 ML 750 ML IV (08:11)
[2023-01-28 08:19] LABS: Glucose, Whole Blood 53 mg/dL (60-115)
[2023-01-28 08:46] LABS: Glucose, Whole Blood 147 mg/dL (60-115)
[2023-01-28] MEDS: Finasteride 5 MG TABLET PO (09:53)
--- NOTE | 2023-01-28 10:13 | P.PNIM_ITS ---
Subjective Subjective Date of Service: 01/28/23 Interval History: a little more verbal today Review of Systems Review of Systems: Yes Unobtainable due to mental status Physical Exam Vital Signs: Vital Signs: Last Vital Signs Temp 97.6 F 01/28/23 03:37 Pulse 96 01/28/23 03:37 Resp 20 01/28/23 03:37 BP 124/60 01/28/23 03:37 Pulse Ox 94 01/28/23 03:37 O2 Del Method Room Air 01/28/23 03:37 O2 Flow Rate 2.5 01/27/23 19:11 Oxygen Flow Rate 3 01/26/23 09:58 BMI result Body Mass Index 19.9 Gen: in no acute distress HEENT: sclera anicteric, dry mucus membranes Neck: supple Lungs: clear to auscultation bilaterally Heart: regular rate and rhythm, no murmurs Abd: soft, non-tender, non-distended : Galaviz with clear urine Ext: no edema Skin: warm/well-perfused Neuro: minimally verbal, moving all extremities Psych: impaired insight Objective Data Active Medications Acetaminophen (Acetaminophen 325 Mg Tablet) 650 mg PO Q6H PRN PRN Reason: Pain, Mild (Pain Scale 1-3) Last Admin: 01/27/23 21:53 Dose: 650 mg Documented By: MIRANDA Al Hydroxide/Mg Hydroxide (Magnesium Hydrox/Alum Hydrox 30 Ml Oral.Susp) 5 ml PO Q4H PRN PRN Reason: Heartburn Albuterol Sulfate (Albuterol Sulfate 90 Mcg 8 Gm Inhaler) 2 puff INHALE RBID FOR[facility] Last Admin: 01/28/23 07:58 Dose: Not Given Documented By: SETH Non-Admin Reason: pt diff to arouse, RN aware. Artificial Tears (Artificial Tears 15 Ml Drops) 1 drop EYE-BOTH TID PRN PRN Reason: Dry Eyes Atorvastatin Calcium (Atorvastatin Calcium 40 Mg Tablet) 40 mg PO BEDTIME [facility] Last Admin: 01/27/23 19:40 Dose: 40 mg Documented By: MIRANDA Bisacodyl (Bisacodyl 10 Mg Supp.Rect) 10 mg [place] DAILY PRN PRN Reason: Constipation Docusate Sodium (Docusate Sodium 100 Mg Capsule) 100 mg PO DAILY PRN PRN Reason: Constipation Docusate Sodium (Docusate Sodium 100 Mg Capsule) 200 mg PO DAILY [facility] Last Admin: 01/28/23 09:45 Dose: Not Given Documented By: JUAN Non-Admin Reason: meds crushed Finasteride (Finasteride 5 Mg Tablet) 5 mg PO DAILY [facility] Last Admin: 01/28/23 09:53 Dose: 5 mg Documented By: JUAN Glucose (Glucose Gel 15 Gm Gel..Gram.) 15 gm PO Q15M PRN; Protocol PRN Reason: per Hypoglycemia Standing Ord. Ceftriaxone Sodium 1 gm/ (Sodium Chloride) 50 mls @ 100 mls/hr IV Q24H [facility] Stop: 01/29/23 11:29 Last Infusion: 01/27/23 12:16 Dose: 0 mls/hr Documented By: MUKESH Dextrose (D10) 250 mls @ 750 mls/hr IV Q15M PRN; Protocol PRN Reason: per Hypoglycemia Standing Ord. Last Infusion: 01/28/23 08:37 Dose: 0 mls/hr Documented By: JUAN Dextrose (D5w) 1,000 mls @ 100 mls/hr IVCONT .Q10H [facility] Last Infusion: 01/28/23 08:37 Dose: 100 mls/hr Documented By: JUAN Insulin Human Lispro (Insulin Lispro 100 Unit/Ml 3 Ml Vial) 0 unit SUBCUT QIDACHS [facility]; Protocol Last Admin: 01/28/23 08:16 Dose: Not Given Documented By: JUAN Non-Admin Reason: POC 53 - D10 running Levothyroxine Sodium (Levothyroxine Sodium 25 Mcg Tablet) 25 mcg PO DAILY@0600 [facility] Last Admin: 01/28/23 05:27 Dose: 25 mcg Documented By: MIRANDA Melatonin (Melatonin 3 Mg Tablet) 3 mg PO BEDTIME [facility] Last Admin: 01/27/23 19:41 Dose: 3 mg Documented By: MIRANDA Metoprolol Succinate (Metoprolol Succinate Er 25 Mg Tab.Er.24h) 75 mg PO BEDTIME [facility]; Protocol Last Admin: 01/27/23 19:40 Dose: 75 mg Documented By: MIRANDA Ondansetron HCl (Ondansetron Hcl 4 Mg/2 Ml Vial) 4 mg IVPUSH Q8H PRN PRN Reason: Nausea and Vomiting Pharmacy Consult (Consult Rx Perform Med Rec) 1 each MISCELLANE ONCE PRN PRN Reason: Consult order Senna (Sennosides 8.6 Mg Tablet) 8.6 mg PO BEDTIME [facility] Last Admin: 01/27/23 19:40 Dose: 8.6 mg Documented By: MIRANDA Senna (Sennosides 8.6 Mg Tablet) 8.6 mg PO DAILY PRN PRN Reason: Constipation Sodium Biphosphate/Sodium Phosphate (Sodium Phosphate,Woodson-Dibasic 133 Ml Enema) 118 ml [place] DAILY PRN PRN Reason: Constipation Sodium Chloride (0.9 % Sodium Chloride Flush 3 Ml Syringe) 3 ml IVFLUSH QSHIFT [facility] Last Admin: 01/28/23 08:17 Dose: Not Given Documented By: JUAN Non-Admin Reason: Previously Administered Labs 01/28/23 05:52 01/28/23 05:52 Labs: Laboratory Results - last 24 hr 01/27/23 01/27/23 01/27/23 11:08 14:26 16:04 MCV MCH MCHC RDW Plt Count MPV Absolute Nucleated RBC Nucleated RBC % (auto) Anion Gap 15 Estim Creat Clear Calc 51.9 Estimated GFR > 60 POC Glucose 119 H 103 Random Glucose 207 H Calcium 9.1 01/27/23 01/28/23 01/28/23 19:34 05:52 05:52 MCV 96.1 MCH 28.8 MCHC 30.0 L RDW 14.2 Plt Count 259 MPV 11.7 Absolute Nucleated RBC 0.000 Nucleated RBC % (auto) 0.0 Anion Gap 15 Estim Creat Clear Calc 45.5 Estimated GFR > 60 POC Glucose 162 H Random Glucose 172 H Calcium 9.2 01/28/23 01/28/23 08:06 08:42 MCV MCH MCHC RDW Plt Count MPV Absolute Nucleated RBC Nucleated RBC % (auto) Anion Gap Estim Creat Clear Calc Estimated GFR POC Glucose 53 L* 147 H Random Glucose Calcium Microbiology Microbiology Results: Microbiology 01/26/23 Unknown Urine Culture - Preliminary Urine Catheterized - Straight Catheter Culture in progress. 01/26/23 11:06 Blood Culture - Preliminary Blood - Venous No growth after 24 hours. 01/26/23 11:06 Blood Culture - Preliminary Blood - Venous No growth after 24 hours. Assessment and Plan (1) Hypernatremia: Status: Acute Plan d#3 83yo M long-term resident of [facility] with vascular dementia, COPD, HTN, HLD, DM2, hypothyroidism, prior CVA presenting with AMS, decreased PO.? Recently diagnosed with pyelonephritis and started on cefdinir.? On presentation, markedly dehydrated with Na 167, Cl 127, SCr 1.56. # hypo-volemic hypernatremia - correcting at appropriate rate, goal 149 by 18:00 today so will resume D5W. Recheck Na 12:00 + 18:00 today. Nephrology following. # prerenal REINIER - resolved with free water repletion # acute metabolic encephalopathy - due to hyperNa, baseline vascular dementia, able to speak + follow basic commands when well - NDD 1 solids, nectar thick liquids for now, HEELER MACHINE consultation pending # pyelonephritis, previously diagnosed - previously on cefdinir, has 2 more doses of ceftriaxone left # HTN - lisinopril held due to RENIIER; resume if BP rises; continue metoprolol succinate # HLD - statin # prostatism - continue finasteride. hold LMWH + ASA due to hematuria [traumatic Galaviz insertion] # hypothyroidism - LT4 # DM2 - margarita- dose lispro # COPD - continue inhalers # VTE ppx: SCDs # dispo: eventual return to [facility] In my clinical judgment, the patient requires continued inpatient hospitalization for the following reasons: electrolyte abnormality Time Spent With Patient Time: Total time managing care of this patient today ___40_ minutes. Quality Stroke Does the patient have a stroke diagnosis?: No VTE Prior VTE?: No VTE Risk Level:: Medical - moderate - high VTE Device Contraindication: Treatment Not Indicated VTE Drug Contraindication: N/A - Med Ordered
[2023-01-28 11:42] VITALS: BP 152/69; PULSE 94; RESP 18; TEMP 36.3; O2SAT 96
[2023-01-28 11:55] LABS: Glucose, Whole Blood 84 mg/dL (60-115)
[2023-01-28] MEDS: cefTRIAXone sodium 1 GM in 0.9 % Sodium Chloride 50 ML IV (12:27)
[2023-01-28 13:12] VITALS: BMI 19.9
--- NOTE | 2023-01-28 13:54 | MHC.SL.SWA ---
Speech Pathologist Impression: Risk of aspiration, oropharyngeal dysphagia Risk of Aspiration Due to: Neurological Condition Poor PO Intake Reduced Cognition Dysphasia Diet Status:Downgrade liquids Liquid Consistency and Strategies for Safe Swallow: Liquid Intake Recommendation: Honey Thick Liquid Intake Strategies: Small Sips No Straws Solid Food Consistency: Dietary Recommendations: Pureed (NDD1) Additional Modifications to Solid Foods: Pt currently on pureed diet with nectar thick liquids as ordered by MD. Recommend continue on PUREED (NDD1) diet and DOWNGRADE to HONEY THICK liquids, pills CRUSHED in PUREE. 1:1 supervision, provide assistance as needed and cues for aspiration precautions. INSPECTORS AND REGULATORY OFFICERS will continue to follow to monitor tolerance and re-assess for potential upgrade if appropriate. Diet order updated by INSPECTORS AND REGULATORY OFFICERS. Oral Medication Intake: Crushed with Puree Please contact the pharmacy regarding appropriate crushable or liquid drug formulations that are available whenever modified delivery is recommended. Compensatory Strategies and Precautions to be Taken for Safe Swallow: Sitting Upright (90 deg) No Straw Small Bites and Sips Rate of Ingestion Change Oral Check Avoid Specific Foods Supervision While Eating and Drinking for Safe Swallow: Total Assistance (1:1) Foods to Avoid: Mixed consistencies (thin from puree; soups w/ thin broth and/or mixed solid ingredients) Swallowing Recommended Treatments: Compens. Strategy Educat. Recommendation for Speech: Inpatient Speech Therapy Speech Therapy through Rehab Facility Comment: Recommend continue ST for continued dysphagia treatment at next level of care. Ticket Writer Clinican/Clinical Fellow: No Supervisory Statement: I have reviewed and agree with the student/clinical fellow's documentation: N/A Speech Language Pathologist: Sadaf Spring M.A., CCC-INSPECTORS AND REGULATORY OFFICERS
[2023-01-28 14:17] LABS: Sodium 153 mmol/L (135-145)
[2023-01-28 15:42] VITALS: BP 147/76; PULSE 97; RESP 20; TEMP 36.3; O2SAT 96
--- NOTE | 2023-01-28 16:34 | P.PNNP_ITS ---
Subjective Subjective Date of Service: 01/28/23 Interval history: Seen and examined, events noted Physical Exam Vital Signs: Vital Signs: Last Vital Signs Temp 97.3 F 01/28/23 15:42 Pulse 97 01/28/23 15:42 Resp 20 01/28/23 15:42 BP 147/76 H 01/28/23 15:42 Pulse Ox 96 01/28/23 15:42 O2 Del Method Room Air 01/28/23 15:42 O2 Flow Rate 2.5 01/27/23 19:11 Oxygen Flow Rate 3 01/26/23 09:58 BMI result Body Mass Index 19.9 Objective Data Labs 01/28/23 05:52 01/28/23 13:49 Labs: Laboratory Results - last 24 hr 01/27/23 01/27/23 01/27/23 18:19 19:34 22:04 WBC RBC Hgb Hct MCV MCH MCHC RDW Plt Count MPV Absolute Nucleated RBC Nucleated RBC % (auto) Sodium 157 H 153 H Potassium Chloride Carbon Dioxide Anion Gap BUN Creatinine Estim Creat Clear Calc Estimated GFR POC Glucose 162 H Random Glucose Calcium 01/28/23 01/28/23 01/28/23 05:52 05:52 08:06 WBC 9.7 RBC 5.34 Hgb 15.4 Hct 51.3 MCV 96.1 MCH 28.8 MCHC 30.0 L RDW 14.2 Plt Count 259 MPV 11.7 Absolute Nucleated RBC 0.000 Nucleated RBC % (auto) 0.0 Sodium 156 H Potassium 4.7 Chloride 121 H Carbon Dioxide 25 Anion Gap 15 BUN 27 H Creatinine 1.06 Estim Creat Clear Calc 45.5 Estimated GFR > 60 POC Glucose 53 L* Random Glucose 172 H Calcium 9.2 01/28/23 01/28/23 01/28/23 08:42 11:42 13:49 WBC RBC Hgb Hct MCV MCH MCHC RDW Plt Count MPV Absolute Nucleated RBC Nucleated RBC % (auto) Sodium 153 H Potassium Chloride Carbon Dioxide Anion Gap BUN Creatinine Estim Creat Clear Calc Estimated GFR POC Glucose 147 H 84 Random Glucose Calcium Microbiology Microbiology Results: Microbiology 01/26/23 11:06 Blood - Venous Blood Culture - Preliminary No growth after 48 hours. 01/26/23 11:06 Blood - Venous Blood Culture - Preliminary No growth after 48 hours. 01/26/23 Unknown Urine Catheterized - Straight Catheter Urine Culture - Preliminary Culture in progress. Procedures Date of Service Date of Service: 01/28/23 Assessment & Plan Assessment and plan (1) Hypernatremia: Status: Acute Plan 1. REINIER: resolved 2. HyperNa: correcting w IVF; no evid of DI given his Uosm was 900 is c/w seevere dehydration as cause of hyperNa REC: cont IVF w D5W and track SNa will follow with team d#3 83yo M long-term resident of [facility] with vascular dementia, COPD, HTN, HLD, DM2, hypothyroidism, prior CVA presenting with AMS, decreased PO.? Recently diagnosed with pyelonephritis and started on cefdinir.? On presentation, markedly dehydrated with Na 167, Cl 127, SCr 1.56. # hypo-volemic hypernatremia - correcting at appropriate rate, goal 149 by 18:00 today so will resume D5W. Recheck Na 12:00 + 18:00 today. Nephrology following. # prerenal REINIER - resolved with free water repletion # acute metabolic encephalopathy - due to hyperNa, baseline vascular dementia, able to speak + follow basic commands when well - NDD 1 solids, nectar thick liquids for now, FLAVORING MACHINE OPERATOR consultation pending # pyelonephritis, previously diagnosed - previously on cefdinir, has 2 more doses of ceftriaxone left # HTN - lisinopril held due to REINIER; resume if BP rises; continue metoprolol succinate # HLD - statin # prostatism - continue finasteride. hold LMWH + ASA due to hematuria [traumatic Galaviz insertion] # hypothyroidism - LT4 # DM2 - margarita- dose lispro # COPD - continue inhalers # VTE ppx: SCDs # dispo: eventual return to [facility] In my clinical judgment, the patient requires continued inpatient hospitalization for the following reasons: electrolyte abnormality Time Spent With Patient Time: Total time managing care of this patient today ____ minutes. Progress Note: Quality Stroke Does the patient have a stroke diagnosis?: No
[2023-01-28 16:49] LABS: Glucose, Whole Blood 100 mg/dL (60-115)
[2023-01-28 19:48] LABS: Sodium 152 mmol/L (135-145)
[2023-01-28 20:00] VITALS: BP 160/60; PULSE 72; RESP 20; TEMP 36.1; O2SAT 96
[2023-01-28 20:33] LABS: Glucose, Whole Blood 102 mg/dL (60-115)
[2023-01-28] MEDS: Sennosides 8.6 MG TABLET PO (22:14)
[2023-01-28] MEDS: Melatonin 3 MG TABLET PO (22:14)
[2023-01-28] MEDS: Metoprolol Succinate ER 25 MG TAB.ER.24H 75 MG PO (22:14)
[2023-01-28] MEDS: Atorvastatin Calcium 40 MG TABLET PO (22:15)
[2023-01-29] VITALS (7 sets, daily range): BP systolic 113–151; BP diastolic 53–73; PULSE 72–104; RESP 16–20; TEMP 36–36.9; O2SAT 92–98
[2023-01-29] MEDS: Levothyroxine Sodium 25 MCG TABLET PO (06:04)
[2023-01-29 07:34] LABS: Anion Gap 15 (12-20); Blood Urea Nitrogen 20 mg/dL (9-16); Calcium 8.5 mg/dL (8.4-10.2); Carbon Dioxide 20 mmol/L (22-29); Chloride 116 mmol/L (96-108); Creatinine Clr Calc Pharmacy 66.1; Estimated Glomerular Filt Rate > 60; Glucose Random 215 mg/dL (60-115); Potassium 4.1 mmol/L (3.3-5.1); Sodium 147 mmol/L (135-145)
--- NOTE | 2023-01-29 07:47 | PC.RT ---
Second morning pt not able to participate with RT in using MDI. RT to recommend to MD changing to albuterol svn Bid as pt not able to coordinate inhaler. RN aware.
[2023-01-29 08:02] LABS: Glucose, Whole Blood 197 mg/dL (60-115)
[2023-01-29] MEDS: Dextrose 5 % 1,000 ML 100 ML IVCONT ×2 (09:18→19:46)
[2023-01-29] MEDS: Finasteride 5 MG TABLET PO (09:19)
[2023-01-29] MEDS: Insulin Lispro 100 UNIT/ML 3 ML VIAL SUBCUT ×3 (09:19→23:24)
--- NOTE | 2023-01-29 10:19 | HO.PM.IMPN ---
Subjective Subjective Date of Service: 01/29/23 Interval History: Unable to obtain ROS due to dementia Trying to pull out Galaviz Na improving Review of Systems Review of Systems: Yes Unobtainable due to mental status Physical Exam Vital Signs: Vital Signs: Last Vital Signs Temp 97.1 F 01/29/23 07:29 Pulse 83 01/29/23 07:29 Resp 20 01/29/23 07:29 BP 138/67 01/29/23 07:29 Pulse Ox 98 01/29/23 03:52 O2 Del Method Room Air 01/29/23 07:29 O2 Flow Rate 2.5 01/27/23 19:11 Oxygen Flow Rate 3 01/26/23 09:58 BMI result Body Mass Index 19.9 Gen: in no acute distress HEENT: sclera anicteric, moist mucus membranes Neck: supple Lungs: clear to auscultation bilaterally Heart: regular rate and rhythm, no murmurs Abd: soft, non-tender, non-distended : Galaviz with clear urine Ext: no edema Skin: warm/well-perfused Neuro: minimally verbal, moving all extremities Psych: impaired insight Objective Data Active Medications Acetaminophen (Acetaminophen 325 Mg Tablet) 650 mg PO Q6H PRN PRN Reason: Pain, Mild (Pain Scale 1-3) Last Admin: 01/27/23 21:53 Dose: 650 mg Documented By: MIRANDA Al Hydroxide/Mg Hydroxide (Magnesium Hydrox/Alum Hydrox 30 Ml Oral.Susp) 5 ml PO Q4H PRN PRN Reason: Heartburn Albuterol Sulfate (Albuterol Sulfate 90 Mcg 8 Gm Inhaler) 2 puff INHALE RBID [facility] Last Admin: 01/29/23 07:44 Dose: Not Given Documented By: SETH Non-Admin Reason: Patient Condition Contraindication Artificial Tears (Artificial Tears 15 Ml Drops) 1 drop EYE-BOTH TID PRN PRN Reason: Dry Eyes Atorvastatin Calcium (Atorvastatin Calcium 40 Mg Tablet) 40 mg PO BEDTIME [facility] Last Admin: 01/28/23 22:15 Dose: 40 mg Documented By: KRISTAL Bisacodyl (Bisacodyl 10 Mg Supp.Rect) 10 mg WI DAILY PRN PRN Reason: Constipation Docusate Sodium (Docusate Sodium 100 Mg Capsule) 100 mg PO DAILY PRN PRN Reason: Constipation Docusate Sodium (Docusate Sodium 100 Mg Capsule) 200 mg PO DAILY [facility] Last Admin: 01/29/23 09:23 Dose: Not Given Documented By: JOCELYN Non-Admin Reason: Patient Condition Contraindication Finasteride (Finasteride 5 Mg Tablet) 5 mg PO DAILY [facility] Last Admin: 01/29/23 09:19 Dose: 5 mg Documented By: JOCELYN Glucose (Glucose Gel 15 Gm Gel..Gram.) 15 gm PO Q15M PRN; Protocol PRN Reason: per Hypoglycemia Standing Ord. Ceftriaxone Sodium 1 gm/ (Sodium Chloride) 50 mls @ 100 mls/hr IV Q24H [facility] Stop: 01/29/23 11:29 Last Infusion: 01/28/23 13:00 Dose: 0 mls/hr Documented By: JUAN Dextrose (D10) 250 mls @ 750 mls/hr IV Q15M PRN; Protocol PRN Reason: per Hypoglycemia Standing Ord. Last Infusion: 01/28/23 08:37 Dose: 0 mls/hr Documented By: JUAN Dextrose (D5w) 1,000 mls @ 100 mls/hr IVCONT .Q10H [facility] Last Admin: 01/29/23 09:18 Dose: 100 mls/hr Documented By: JOCELYN Insulin Human Lispro (Insulin Lispro 100 Unit/Ml 3 Ml Vial) 0 unit SUBCUT QIDACHS [facility]; Protocol Last Admin: 01/29/23 09:19 Dose: 2 unit Documented By: JOCELYN Levothyroxine Sodium (Levothyroxine Sodium 25 Mcg Tablet) 25 mcg PO DAILY@0600 [facility] Last Admin: 01/29/23 06:04 Dose: 25 mcg Documented By: KRISTAL Melatonin (Melatonin 3 Mg Tablet) 3 mg PO BEDTIME [facility] Last Admin: 01/28/23 22:14 Dose: 3 mg Documented By: KRISTAL Metoprolol Succinate (Metoprolol Succinate Er 25 Mg Tab.Er.24h) 75 mg PO BEDTIME [facility]; Protocol Last Admin: 01/28/23 22:14 Dose: 75 mg Documented By: KRISTAL Ondansetron HCl (Ondansetron Hcl 4 Mg/2 Ml Vial) 4 mg IVPUSH Q8H PRN PRN Reason: Nausea and Vomiting Pharmacy Consult (Consult Rx Perform Med Rec) 1 each MISCELLANE ONCE PRN PRN Reason: Consult order Senna (Sennosides 8.6 Mg Tablet) 8.6 mg PO BEDTIME [facility] Last Admin: 01/28/23 22:14 Dose: 8.6 mg Documented By: KRISTAL Senna (Sennosides 8.6 Mg Tablet) 8.6 mg PO DAILY PRN PRN Reason: Constipation Sodium Biphosphate/Sodium Phosphate (Sodium Phosphate,Preston-Dibasic 133 Ml Enema) 118 ml WI DAILY PRN PRN Reason: Constipation Sodium Chloride (0.9 % Sodium Chloride Flush 3 Ml Syringe) 3 ml IVFLUSH QSHIFT [facility] Last Admin: 01/29/23 09:19 Dose: Not Given Documented By: JOCELYN Non-Admin Reason: IV Running Labs 01/28/23 05:52 01/29/23 06:17 Labs: Laboratory Results - last 24 hr 01/28/23 01/28/23 01/28/23 11:42 16:46 20:30 Anion Gap Estim Creat Clear Calc Estimated GFR POC Glucose 84 100 102 Random Glucose Calcium 01/29/23 01/29/23 06:17 07:58 Anion Gap 15 Estim Creat Clear Calc 66.1 Estimated GFR > 60 POC Glucose 197 H Random Glucose 215 H Calcium 8.5 D Microbiology Microbiology Results: Microbiology 01/26/23 11:06 Blood Culture - Preliminary Blood - Venous No growth after 48 hours. 01/26/23 11:06 Blood Culture - Preliminary Blood - Venous No growth after 48 hours. 01/26/23 Unknown Urine Culture - Preliminary Urine Catheterized - Straight Catheter Culture in progress. Assessment and Plan (1) Hypernatremia: Status: Acute Plan d#4 83yo M long-term resident of [facility] with vascular dementia, COPD, HTN, HLD, DM2, hypothyroidism, prior CVA presenting with AMS, decreased PO.? Recently diagnosed with pyelonephritis and started on cefdinir.? On presentation, markedly dehydrated with Na 167, Cl 127, SCr 1.56. # hypo-volemic hypernatremia - correcting at appropriate rate on D5W, Nephrology following # prerenal REINIER - resolved with free water repletion; d/c Galaviz # acute metabolic encephalopathy - due to hyperNa, baseline vascular dementia, able to speak + follow basic commands when well - NDD 1 solids, honey-thick liquids, CLINIC LPN following # pyelonephritis, previously diagnosed - previously on cefdinir, has 1 more dose of ceftriaxone left # HTN - lisinopril held due to REINIER; resume now; continue metoprolol succinate # HLD - statin # prostatism - continue finasteride. hold LMWH + ASA due to hematuria [traumatic Galaviz insertion] # hypothyroidism - LT4 # DM2 - margarita- dose lispro # COPD - continue inhalers # VTE ppx: SCDs # dispo: eventual return to [facility] In my clinical judgment, the patient requires continued inpatient hospitalization for the following reasons: electrolyte abnormality Time Spent With Patient Time: Total time managing care of this patient today ___35_ minutes. Quality Stroke Does the patient have a stroke diagnosis?: No VTE Prior VTE?: No VTE Risk Level:: Medical - moderate - high VTE Device Contraindication: Treatment Not Indicated VTE Drug Contraindication: N/A - Med Ordered
[2023-01-29 11:13] LABS: Glucose, Whole Blood 290 mg/dL (60-115)
[2023-01-29] MEDS: cefTRIAXone sodium 1 GM in 0.9 % Sodium Chloride 50 ML IV (11:16)
[2023-01-29] MEDS: lisinopriL 10 MG TABLET PO (12:08)
--- NOTE | 2023-01-29 15:39 | PC.NURSE ---
Order received to d/c cao catheter, cao d/c at 1200, patient tolerated the procedure well, patient was incontinent of urine at 1330,
--- NOTE | 2023-01-29 16:19 | PM.PNNEP ---
Subjective Subjective Date of Service: 01/29/23 Interval history: Seen and examined, events noited Physical Exam Vital Signs: Vital Signs: Last Vital Signs Temp 96.8 F 01/29/23 15:55 Pulse 72 01/29/23 15:55 Resp 20 01/29/23 15:55 BP 148/58 H 01/29/23 15:55 Pulse Ox 92 01/29/23 15:55 O2 Del Method Room Air 01/29/23 15:55 O2 Flow Rate 2.5 01/27/23 19:11 Oxygen Flow Rate 3 01/26/23 09:58 BMI result Body Mass Index 19.9 Objective Data Labs 01/28/23 05:52 01/29/23 06:17 Labs: Laboratory Results - last 24 hr 01/28/23 01/28/23 01/28/23 16:46 19:12 20:30 Sodium 152 H Potassium Chloride Carbon Dioxide Anion Gap BUN Creatinine Estim Creat Clear Calc Estimated GFR POC Glucose 100 102 Random Glucose Calcium 01/29/23 01/29/23 01/29/23 06:17 07:58 11:08 Sodium 147 H Potassium 4.1 Chloride 116 H Carbon Dioxide 20 L Anion Gap 15 BUN 20 H Creatinine 0.73 Estim Creat Clear Calc 66.1 Estimated GFR > 60 POC Glucose 197 H 290 H Random Glucose 215 H Calcium 8.5 D Microbiology Microbiology Results: Microbiology 01/26/23 11:06 Blood - Venous Blood Culture - Preliminary No growth after 48 hours. 01/26/23 11:06 Blood - Venous Blood Culture - Preliminary No growth after 48 hours. 01/26/23 Unknown Urine Catheterized - Straight Catheter Urine Culture - Preliminary Culture in progress. Procedures Date of Service Date of Service: 01/29/23 Assessment & Plan Assessment and plan (1) Hypernatremia: Status: Acute Plan 1. REINIER: resolved 2. HyperNa: correcting w IVF; no evid of DI given his Uosm was 900 is c/w seevere dehydration as cause of hyperNa REC: cont IVF w D5W and track SNa will sign off call prn d#3 83yo M long-term resident of [facility] with vascular dementia, COPD, HTN, HLD, DM2, hypothyroidism, prior CVA presenting with AMS, decreased PO.? Recently diagnosed with pyelonephritis and started on cefdinir.? On presentation, markedly dehydrated with Na 167, Cl 127, SCr 1.56. # hypo-volemic hypernatremia - correcting at appropriate rate, goal 149 by 18:00 today so will resume D5W. Recheck Na 12:00 + 18:00 today. Nephrology following. # prerenal REINIER - resolved with free water repletion # acute metabolic encephalopathy - due to hyperNa, baseline vascular dementia, able to speak + follow basic commands when well - NDD 1 solids, nectar thick liquids for now, ACCESS DIRECTOR consultation pending # pyelonephritis, previously diagnosed - previously on cefdinir, has 2 more doses of ceftriaxone left # HTN - lisinopril held due to REINIER; resume if BP rises; continue metoprolol succinate # HLD - statin # prostatism - continue finasteride. hold LMWH + ASA due to hematuria [traumatic Galaviz insertion] # hypothyroidism - LT4 # DM2 - margarita- dose lispro # COPD - continue inhalers # VTE ppx: SCDs # dispo: eventual return to [facility] In my clinical judgment, the patient requires continued inpatient hospitalization for the following reasons: electrolyte abnormality Time Spent With Patient Time: Total time managing care of this patient today ____ minutes. Progress Note: Quality Stroke Does the patient have a stroke diagnosis?: No
--- NOTE | 2023-01-29 16:41 | P.CDIM_ITS ---
PROVIDER RESPONSE TEXT: To clarify, the appropriate diagnosis supported by the clinical indicators: Underweight QUERY TEXT: >>> Provider Instructions - Do not remove this line >>> PHYSICIAN'S DOCUMENTATION REQUEST Date of Query: 01/28/2023 07:10 AM EDT Patient Name: Agus Jordan Admit Date: 01/26/2023 Dear Mikala Grove, A review of the medical record indicates additional documentation may be needed. Please review below and update the documentation accordingly. Clinical Indicators: Height: ( ) 5'9 Weight: ( ) 61 kg BMI: ( ) 19.9 Other Clinical Notes Supporting Significance of the BMI: If possible, please provide an associated diagnosis related to the abnormal BMI, such as: <<< Provider Instructions - Do not remove this line <<< Underweight Weight loss Cachexia Anorexia BMI is not significant Other (explain)Clinically unable to determine (explain)>>> Contact Info Do not remove this line>>> Thank you, Belen Mckinney RN Use of terms such as suspected, likely, concern for, or probable (associated with a specific diagnosi s that is being evaluated, monitored, or treated as if it exists) are acceptable and can be coded in the inpatient se tting, when documented at the time of discharge. Please use your independent medical judgment in providing your response. THIS QUERY IS PART OF THE PERMANENT MEDICAL RECORD <<< Contact Info Do not remove this line <<< >>> Disclaimer - Do no remove this line>>> Extension: [phone] <<< Disclaimer - Do not remove this line<<<
[2023-01-29 16:54] LABS: Glucose, Whole Blood 82 mg/dL (60-115)
--- NOTE | 2023-01-29 17:01 | MHC.SLD.DC ---
Date of Plan of Treatment: 01/28/23 Onset of Symptoms/Illness: 01/26/23 Date Treatment Started: 01/28/23 Medical Diagnosis: Hypernatremia Primary Speech Language Diagnosis: R13.12 Oropharyngeal Phase Dysphagia Secondary Speech Language Diagnosis: R41.841 Cognitive communication disorder Date Discharged from Speech: Pre-Treatment Diet: Subjective: Prognosis for Improvement: Fair Treatment: Pt is initially combative and refusing to eat. With encouragement from RN, he agrees to start PO trials he tolerates Ice Chips, but demonstrated prolonged dry cough immediately after cup sip administration of Thin Liquids. He tolerated administered and self-administered sips of Childress-Thick Liquids with no overt s/s of aspiration. He tolerates Puree Solids with adequate oral clearance and no overt s/s of aspiration. He has delayed mastication time with an advanced solid, but adequate oral clearance and no overt s/s of aspiration. Regular Solids are deferred given risk of aspiration on liquids. MEASUREMENT SPECIALIST recommending upgrade to Dysphagia Advanced Solids and Childress-Thick Liquids. Changes made to current diet?: Yes Post Tx Diet: Pt has hx vascular dementia and prior CVA. Pt comes from [facility] in [place], and at baseline is reportedly on soft and bite sized diet with thin liquids prior to this hospitalization. He took pills whole with liquid and was previously independent with feeding. Liquid Thickness Recommendation: Honey Thick Liquid Intake Strategies: Small Sips No Straws Solid Food Consistency: Chopped/Advanced (NDD3) Additional Modifications to Solids: Recommend continue on PUREED (NDD1) diet and DOWNGRADE to HONEY THICK liquids, pills CRUSHED in PUREE. 1:1 supervision, provide assistance as needed and cues for aspiration precautions. MEASUREMENT SPECIALIST will continue to follow to monitor tolerance and re-assess for potential upgrade if appropriate. Diet order updated by MEASUREMENT SPECIALIST. Dysphagia Medication Administration: Crushed with Puree If alternative methods are suggested for medication (e.g. crushed), please consult with pharmacy as appropriate crushable or liquid drug formulations available. Compensatory Strategies for Safe Swallow: Sitting Upright (90 deg) No Straw Small Bites and Sips Rate of Ingestion Change Oral Check Avoid Specific Foods Supervision While Eating or Drinking: Total Assistance (1:1) Foods to Avoid: Mixed consistencies (thin from puree; soups w/ thin broth and/or mixed solid ingredients) Swallowing Treatments: Compens. Strategy Educat. Mid Level Project Manager Clinician/Clinical Fellow: No I have reviewed/agreed with student/fellow documentation: N/A Speech/Language Pathologist: Sadaf Spring M.A., CCC-MEASUREMENT SPECIALIST
[2023-01-29 20:36] LABS: Glucose, Whole Blood 166 mg/dL (60-115)
[2023-01-29] MEDS: Melatonin 3 MG TABLET PO (23:23)
[2023-01-29] MEDS: Atorvastatin Calcium 40 MG TABLET PO (23:23)
[2023-01-29] MEDS: Sennosides 8.6 MG TABLET PO (23:24)
[2023-01-29] MEDS: 0.9 % Sodium Chloride Flush 3 ML SYRINGE IVFLUSH (23:25)
[2023-01-30 03:30] VITALS: BP 126/56; PULSE 112; RESP 20; TEMP 36.3; O2SAT 92
[2023-01-30] MEDS: Dextrose 5 % 1,000 ML 100 ML IVCONT (05:32)
--- NOTE | 2023-01-30 06:35 | PC.NURSE ---
Pt remained drowsy throughout shift, Unable to assess orientation since pt was unable to answer questions and would just scream out loud. okayed holding PO metoprolol due to pt drowsiness and being unable to crush an ER med since pt on 1:1 feed and nectar thick diet- will pass on to day RN. Pt resting comfortably in bed.
[2023-01-30 07:11] LABS: Anion Gap 12 (12-20); Blood Urea Nitrogen 12 mg/dL (9-16); Calcium 7.9 mg/dL (8.4-10.2); Carbon Dioxide 21 mmol/L (22-29); Chloride 103 mmol/L (96-108); Creatinine Clr Calc Pharmacy 59.6; Estimated Glomerular Filt Rate > 60; Potassium 3.7 mmol/L (3.3-5.1); Sodium 132 mmol/L (135-145)
[2023-01-30 07:16] LABS: Glucose Random 418 mg/dL (60-115)
[2023-01-30 07:17] LABS: Glucose, Whole Blood 201 mg/dL (60-115)
[2023-01-30 07:36] VITALS: BP 150/73; PULSE 101; RESP 20; TEMP 36.5; O2SAT 92
[2023-01-30] MEDS: Finasteride 5 MG TABLET PO (08:57)
[2023-01-30] MEDS: lisinopriL 10 MG TABLET PO (08:57)
[2023-01-30] MEDS: Insulin Lispro 100 UNIT/ML 3 ML VIAL SUBCUT (08:57)
[2023-01-30] MEDS: 0.9 % Sodium Chloride Flush 3 ML SYRINGE IVFLUSH (08:58)
--- NOTE | 2023-01-30 10:21 | MHC.SLORD ---
Speech Language Pathology Order Status: BARREL ENDSHAKE ADJUSTER attempted to see pt this morning as pt was declining blood draw. Pt w/ untouched breakfast tray at bedside. Pt did not respond to BARREL ENDSHAKE ADJUSTER's presence and offer for PO; presented with still body posture and eyes closed. Will re-attempt later this date providing time allows.
--- NOTE | 2023-01-30 10:31 | MHC.CM.PN ---
Per ROUNDS discussion, Patient is medically cleared for dc to STR/SNF today. Patient will dc to her first choice SNF/[facility] today at 2PM, via [facility]. Patient and her Daughter/HCP/Stephany @ [phone] are aware of and in agreement with the dc plan. IMM addressed with Stephany and per her request, original was left at bedside and a copy has been placed on the chart.
[2023-01-30 10:46] LABS: Sodium 139 mmol/L (135-145)
[2023-01-30 11:24] LABS: Glucose, Whole Blood 131 mg/dL (60-115)
[2023-01-30 12:00] VITALS: BP 116/67; PULSE 110; RESP 20; TEMP 37; O2SAT 93
[2023-01-30 12:06] LABS: COVID-19 Test Negative (Negative); IDNOW Serial# 08D9AD1C
--- NOTE | 2023-01-30 12:12 | MHC.CLN ---
F/U PT WITH INCREASED NUTRITION RISK R/T YOVANNY BANEGAS NOTED BMI ON LOWER END PO INTAKE 75% X2 MEALS DIET RX; 1800DM 2GM NA CHOPPED WITH NT LIQ-APPROPRIATE PT RECEIVING ENSURE MAX BID TO INCREASE PO SUPP PROVIDES 30KCALS, 60G PROTEIN WITH 100% ACCEPTANCE MONITOR PO INTAKE CLOSELY
--- NOTE | 2023-01-30 12:27 | P.DS_ITS ---
DS: Providers Provider Date of Service: 01/30/23 Date of admission: 01/26/23 17:40 Date of discharge: 01/30/23 Primary care physician: Taras Prescott DO Consults: 01/27/23 07:39 Consult to Nephrology Routine Consulting Provider: [facility] Reason for consultation: hyperNa DS: Diagnosis Discharge Diagnosis (1) Hypernatremia: Status: Acute (2) Dehydration: Status: Acute (3) Pyelonephritis: Status: Inactive (4) Metabolic encephalopathy: Status: Acute (5) Prerenal acute renal failure: Status: Acute DS: Summary Hospital Course Hospital Course: from admission H+P by hospitalist TJ Beck, 01/26/23: Pt is a 83-year-old male with a PMH significant for?vascular dementia, COPD, HTN, HLD, insulin-dependent diabetes type 2, hypothyroidism, and hx of CVA who presents to the ED from SNF with altered mental status and decreased p.o. intake.? Patient is a resident of [facility] and?at baseline is alert and oriented to self, capable of speaking in full sentences and following commands.? Currently patient is not alert and oriented and incapable of providing in HPI, which instead taken from chart and provider review.? Patient was sent to the hospital for altered mental status 7 days prior on 01/19/2023.? Patient was diagnosed with pyelonephritis and sent home on a 10 day course of cefdinir 300 mg p.o. b.i.d. Facility staff note that the patient's mentation did not improve during the week and he was sent back to the hospital for further evaluation. In the ED patient was afebrile but tachycardic up to 110 and tachypneic up to 24. Labs were significant for leukocytosis of 15.2, H&H of 18.9/63.6, hypernatremia of 167, chloride of 127, BUN of 47, creatinine 1.56.? UA negative for UTI. CXR showed no evidence of pneumonia or congestive heart failure. Pt was treated with IVF, lorazepam, ceftriaxone, and started on D5W. Pt will be admitted to the hospital on telemetry for treatment and further evaluation of hypernatremia and REINIER. 83yo M long-term resident of [facility] with vascular dementia, COPD, HTN, HLD, DM2, hypothyroidism, prior CVA presenting with AMS, decreased PO.? Recently diagnosed with pyelonephritis and started on cefdinir.? On presentation, markedl y dehydrated with Na 167, Cl 127, SCr 1.56. Hospital course by problem: # hypo-volemic hypernatremia - corrected at appropriate rate on D5W with Nephrology consultation. encouraged free water intake by mouth. # prerenal REINIER - resolved with free water repletion and holding lisinopril; resumed # acute metabolic encephalopathy - due to hyperNa. resolved back to baseline mental status with vascular dementia, able to speak + follow basic commands. - TAXATION INSPECTOR consulted. diet recommendation: PUREED (NDD1) diet and DOWNGRADE to HONEY THICK liquids, pills CRUSHED in PUREE. 1:1 supervision, provide assistance as needed and cues for aspiration precautions. # pyelonephritis, previously diagnosed - previously on cefdinir, completed ceftriaxone while in hospital He was discharged back to [facility]. Time Spent with Patient Time attestation: Total time managing care of this patient today __40__ minutes. Discharge coordination time: Greater than 30 minutes Quality: Safe Use of Opioids Does Pt have an Active Cancer Diagnosis on the Problem List?: No Quality: Stroke Does the patient have a stroke diagnosis?: No Physical Exam Vital Signs: Vital Signs: Last Vital Signs Temp 98.6 F 01/30/23 12:00 Pulse 110 H 01/30/23 12:00 Resp 20 01/30/23 12:00 BP 116/67 01/30/23 12:00 Pulse Ox 93 01/30/23 12:00 O2 Del Method Room Air 01/30/23 12:00 O2 Flow Rate 2.5 01/27/23 19:11 Oxygen Flow Rate 3 01/26/23 09:58 BMI result Body Mass Index 19.9 Gen: in no acute distress HEENT: sclera anicteric, moist mucus membranes Neck: supple Lungs: clear to auscultation bilaterally Heart: regular rate and rhythm, no murmurs Abd: soft, non-tender, non-distended : Galaviz with clear urine Ext: no edema Skin: warm/well-perfused Neuro: follows basic commands,moving all extremities Psych: impaired insight DS: Data Data Completed and Pending Labs on day of discharge: Laboratory Results - last 24 hr 01/29/23 01/29/23 01/30/23 16:50 20:15 06:11 Sodium 132 L Potassium 3.7 Chloride 103 Carbon Dioxide 21 L Anion Gap 12 BUN 12 Creatinine 0.81 Estim Creat Clear Calc 59.6 Estimated GFR > 60 POC Glucose 82 166 H Random Glucose 418 H* Calcium 7.9 L D COVID-19 ([facility]) COVID-19 Clin Com 01/30/23 01/30/23 01/30/23 07:14 10:16 10:31 Sodium 139 Potassium Chloride Carbon Dioxide Anion Gap BUN Creatinine Estim Creat Clear Calc Estimated GFR POC Glucose 201 H Random Glucose Calcium COVID-19 ([facility]) Negative COVID-19 Clin Com See Note 01/30/23 11:21 Sodium Potassium Chloride Carbon Dioxide Anion Gap BUN Creatinine Estim Creat Clear Calc Estimated GFR POC Glucose 131 H Random Glucose Calcium COVID-19 ([facility]) COVID-19 Clin Com Preliminary micro results at discharge 01/26/23 Unknown Urine Culture - Preliminary Urine Catheterized - Straight Catheter Yeast 01/26/23 11:06 Blood Culture - Preliminary Blood - Venous No growth after 48 hours. 01/26/23 11:06 Blood Culture - Preliminary Blood - Venous No growth after 48 hours. Discharge Plan Discharge Anticipated Discharge Date/Time: 01/30/23 12:24 Patient Disposition: er [facility] Discharge Diagnosis: hypovolemic hypernatremia, resolved prerenal REINIER, resolved metabolic encephalopathy, resolved Referrals: Taras Prescott DO [Primary Care Provider] - 1 Week Discharge Medications: Continued acetaminophen 325 mg Tablet 325 mg PO BID atorvastatin [Lipitor] 40 mg Tablet 40 mg PO BEDTIME melatonin 3 mg Tablet 3 mg PO BEDTIME insulin aspart U-100 100 unit/mL Solution 1 sliding scale dose SUBCUT USEASDIRECTD Rx Instructions: 0-150=0 units, 151-200=2 units, 201-250=4 units, 251-300=6 units, 301-350=8 units, 351-400=10 units, 401-999 call metformin 1,000 mg Tablet 1,000 mg PO BID lisinopril 10 mg Tablet 10 mg PO DAILY docusate sodium [Colace] 100 mg Capsule 200 mg PO DAILY aspirin 81 mg Tablet,Chewable 81 mg PO DAILY albuterol sulfate [ProAir HFA] 90 mcg/actuation Hfa Aerosol Inhaler 2 puff INHALATION BID senna 8.6 mg Capsule 8.6 mg PO BEDTIME sennosides [senna] 8.6 mg Tablet 8.6 mg PO DAILY PRN (Reason: Constipation) acetaminophen [Tylenol] 325 mg Tablet 650 mg PO Q6H PRN (Reason: Fever Or Pain) Rx Instructions: DO NOT EXCEED 3 G/ 24 HRS levothyroxine 25 mcg Tablet 25 mcg PO DAILY@0600 bisacodyl 10 mg Suppository 10 mg OH DAILY PRN (Reason: Constipation) Fleet Enema 19-7 gram/118 mL Enema 118 ml OH DAILY PRN (Reason: Constipation) metoprolol succinate 25 mg tablet extended release 24 hr 75 mg PO BEDTIME alum-mag hydroxide-simeth 200-200-20 mg/5 mL Suspension 5 ml PO Q4H PRN (Reason: Heartburn) Rx Instructions: administer between meals and at bedtime Artificial Tears(zo-tqqp-cabp) 1-0.2-0.2 % Drops 1 drp OPHTHALMIC (EYE) TID PRN (Reason: Dry Eyes) Rx Instructions: instill 1 drop in both eyes Farxiga 10 mg tablet 10 mg PO DAILY Trulicity 1.5 mg/0.5 mL pen injector 1.5 mg subcut WE@0900 cefdinir 300 mg capsule 300 mg PO BID 10 Days Qty: 20 0RF Rx Instructions: LAST DOSE/STOP DATE: 01/30/23 @0600 finasteride 5 mg tablet 5 mg PO DAILY 90 Days Qty: 90 1RF Discharge Orders: Discharge Order (Routine); Ordered 01/30/23 Ordered By: Mikala Grove Diet: Advance to usual diet Activity on Discharge: As tolerated Stand Alone Forms: Patient Portal Discharge page Care Plan Goals: normal hydration Health Concerns: hypovolemic hypernatremia, resolved prerenal REINIER, resolved metabolic encephalopathy, resolved Plan of Treatment: return to [facility] for ongoing care encourage PO water intake completed antibiotics for pyelonephritis while hospitalized Please follow up with your primary care doctor within 1 week. Return to the hospital if you experience recurrent or worsening symptoms. Assessment: See Discharge Summary.
--- NOTE | 2023-01-30 13:16 | MHC.CM.PN ---
Patient has been medically cleared for dc to return to LTC today. Patient will return to [facility] today at 3PM via [facility]. MAURICE spoke with Guardian/Litzy Davis @ [phone] and addressed IMM with her (original will be mailed to Litzy and a copy has been placed on the chart).
[2023-01-30 13:59] LABS: Sodium 139 mmol/L (135-145)
== END 2023-01-30 15:16 | disposition skilled nursing facility (03) | DRG 682 ==
LOC: HO.ED 13:33 → HO.EDOVER 17:58 → HO.IMC 18:17
PROVIDERS: Internal Medicine; Admitting Provider Student in an Organized Health Care Education/Training Program; Emergency Provider Emergency Medicine; PCP Hospitalist; Visit Provider Family Medicine
DX: N17.9 Acute kidney failure, unspecified (principal); G92.8 Other toxic encephalopathy; E87.0 Hyperosmolality and hypernatremia; Z68.1 Body mass index [BMI] 19.9 or less, adult; J44.9 Chronic obstructive pulmonary disease, unspecified; E86.0 Dehydration; I10 Essential (primary) hypertension; E03.9 Hypothyroidism, unspecified; N40.0 Benign prostatic hyperplasia without lower urinary tract symptoms; R31.9 Hematuria, unspecified; R63.6 Underweight; N12 Tubulo-interstitial nephritis, not specified as acute or chronic; F01.50 Vascular dementia, unspecified severity, without behavioral disturbance, psychotic disturbance, mood disturbance, and anxiety; E78.5 Hyperlipidemia, unspecified; Z20.822 Contact with and (suspected) exposure to COVID-19; Z79.82 Long term (current) use of aspirin; Z79.84 Long term (current) use of oral hypoglycemic drugs; Z79.899 Other long term (current) drug therapy
CPT/HCPCS: 36415; 71045; 80048; 80076; 81001; 82947; 83605; 83690; 83880; 83935; 84295; 84484; 85025; 85027; 87040; 87086; 87088; 87635; 92610; 99285; C1758; J0696; J1650; J2060

== ENCOUNTER 2023-02-08 14:12 | Inpatient (IN) | payer MEDICARE, MEDICAID, SELFPAY ==
[2023-02-08] VITALS (8 sets, daily range): BP systolic 80–160; BP diastolic 53–81; PULSE 43–129; RESP 17–35; TEMP 36.3–38; O2SAT 60–100; BMI 20.7
--- NOTE | ~2023-02-08 | XR_ITS ---
EXAMINATION: XR CHEST CLINICAL INFORMATION: Cough COMPARISON: 01/26/2023 TECHNIQUE: Frontal view of the chest was obtained. FINDINGS: Lungs are hyperinflated with mild flattening of the diaphragm but without infiltrates nodules or pleural effusion. Cardiomediastinal silhouette is normal XR/XR chest 1V IMPRESSION: Emphysematous changes no active cardiopulmonary disease
[2023-02-08 14:39] LABS: MANUAL DIFF FLAG NO
[2023-02-08 14:48] LABS: ABG Base Excess -2.3 mmol/L; ABG HCO3 21 mmol/L (22-26); ABG pCO2 32 mmHg (32-45); ABG pH 7.41 (7.35-7.45); ABG pO2 158 mmHg (83-108)
[2023-02-08 14:49] LABS: ABG Refer to POC result
[2023-02-08 14:49] LABS: Basophils Absolute Auto 0.1 X10*3/uL (0.0-0.2); Basophils Percent Auto 0.4 % (0-2); Eosinophils Absolute Auto 0.2 X10*3/uL (0.0-0.4); Eosinophils Percent Auto 1.3 % (0-4); Hematocrit 53.4 % (42.0-52.0); Hemoglobin 16.4 g/dl (14.0-18.0); Imm Gran Abs Auto 0.05 X10*3/uL (0.00-0.03); Imm Gran Pct Auto 0.3 % (0.0-0.4); Lymphocytes Absolute Auto 2.1 X10*3/uL (1.2-4.9); Lymphocytes Percent Auto 14.7 % (20-40); Mean Corpuscular HGB Conc 30.7 g/dl (31.0-36.0); Mean Corpuscular Hemoglobin 28.9 pg (27.0-33.0); Mean Platelet Volume 11.8 fL (9.4-12.4); Monocytes Absolute Auto 0.7 X10*3/uL (0.1-1.2); Monocytes Percent Auto 5.2 % (2-11); Neutrophils Absolute Auto 11.2 x10*3/uL (2.0-8.3); Neutrophils Percent Auto 78.1 % (45-73); Platelet Count 455 X10*3/uL (160-400); Red Blood Count 5.68 X10*6/uL (4.60-5.80); White Blood Count 14.3 X10*3/uL (4.8-10.8)
--- NOTE | 2023-02-08 15:01 | ED.GENADULT ---
HPI - General Adult General Chief complaint: Altered Mental Status Stated complaint: Poss sepsis per EMS Time Seen by Provider: 02/08/23 14:19 Source: EMS Mode of arrival: EMS History of Present Illness HPI narrative: This is 83 years old resident of [facility] who at baseline has confusion, decreased motility, he was sent here because was noted to be somewhat cyanotic, patient was seen in the emergency room on January 26 treated for hypernatremia 7 back to the nursing facility. I spoke with the nursing facility that been given IV fluids 2 peripheral line despite that the the patient the he is more weak acyanotic. Patient is a presumed full code Onset (ago): day(s) (1) Radiation: non-radiation Severity: moderate Quality: burning Relieving factors: none Related Data Home Medications Medication Instructions Recorded Confirmed albuterol sulfate 90 mcg/actuation 2 puff inhalation BID 08/13/20 01/26/23 aerosol inhaler (ProAir HFA) aspirin 81 mg chewable tablet 81 mg PO DAILY 08/13/20 01/26/23 atorvastatin 40 mg tablet (Lipitor) 40 mg PO BEDTIME 08/13/20 01/26/23 docusate sodium 100 mg capsule 200 mg PO DAILY 08/13/20 01/26/23 (Colace) insulin aspart U-100 100 unit/mL 1 sliding scale dose subcut 08/13/20 01/26/23 subcutaneous solution USEASDIRECTD lisinopril 10 mg tablet 10 mg PO DAILY 08/13/20 01/26/23 melatonin 3 mg tablet 3 mg PO BEDTIME 08/13/20 01/26/23 metformin 1,000 mg tablet 1,000 mg PO BID 08/13/20 01/26/23 sennosides 8.6 mg capsule (senna) 8.6 mg PO BEDTIME 08/13/20 01/26/23 acetaminophen 325 mg tablet 650 mg PO Q6H PRN Fever Or Pain 01/26/23 01/26/23 (Tylenol) aluminum-mag hydroxide-simethicone 5 ml PO Q4H PRN Heartburn 01/26/23 01/26/23 200 mg-200 mg-20 mg/5 mL oral susp bisacodyl 10 mg rectal suppository 10 mg FL DAILY PRN Constipation 01/26/23 01/26/23 dapagliflozin propanediol 10 mg 10 mg PO DAILY 01/26/23 01/26/23 tablet (Farxiga) dulaglutide 1.5 mg/0.5 mL 1.5 mg subcut WE@0900 01/26/23 01/26/23 subcutaneous pen injector ([facility]) levothyroxine 25 mcg tablet 25 mcg PO DAILY@0600 01/26/23 01/26/23 metoprolol succinate 25 mg 75 mg PO BEDTIME 01/26/23 01/26/23 tablet,extended release 24 hr peg [id number] 1 1 drp ophthalmic (eye) TID PRN Dry 01/26/23 01/26/23 %-0.2 %-0.2 % eye drops Eyes (Artificial Tears ([id number])) sennosides 8.6 mg tablet (senna) 8.6 mg PO DAILY PRN Constipation 01/26/23 01/26/23 sodium phosphates 19 gram-7 118 ml FL DAILY PRN Constipation 01/26/23 01/26/23 gram/118 mL enema (Fleet Enema) collagenase clostridium histo. 250 1 appl topical DAILY 02/08/23 02/08/23 unit/gram topical ointment (Santyl) collagenase clostridium histo. 250 1 appl topical DAILY PRN Wound Care 02/08/23 02/08/23 unit/gram topical ointment (Santyl) oxycodone-acetaminophen 5 mg-325 1 tab PO Q4H PRN Moderate Pain 02/08/23 02/08/23 mg tablet (Scale Score 5-6) Previous Rx's Medication Instructions Recorded finasteride 5 mg tablet 5 mg PO DAILY 90 days #90 tabs 01/22/23 Allergies Allergy/AdvReac Type Severity Reaction Status Date / Time No Known Allergies Allergy Intermediate UNKNOWN Verified 01/22/23 12:01 [NO KNOWN ALLERGIES] Review of Systems Review of Systems: Yes Unobtainable due to mental status Neurologic: Reports confusion Psychiatric: Psychiatric: Reports confusion PMFSH Past Medical History Medical History Cerebral infarction Cognitive communication deficit COPD (chronic obstructive pulmonary disease) Depressive disorder Diabetes Dysphagia Hearing loss Hemiplegia HTN (hypertension) Hyperlipemia Vascular dementia Social History Social History Household Members: Unknown / Unable to assess Housing: Unknown / Unable to assess Unable to assess alcohol history related to: Unable to respond and Unknown Alcohol intake: unknown Patient Tobacco Use Status: Tobacco use Unknown Use of substances other than those prescribed or required for medical reasons: Unknown Advance Directives: No Advance Directives Information Provided: No service: No Current occupational status: disabled Physical Exam ED Vital Signs: Vital Signs - 24 hr 02/08/23 14:46 02/08/23 16:16 Temperature 100.4 F Pulse Rate 129 H 126 H Respiratory Rate 35 H 28 H Blood Pressure 160/57 H 154/63 H Pulse Oximetry 100 100 Oxygen Delivery Method Oxymask Oxymask Oxygen Flow Rate 11 BMI result Body Mass Index 20.7 Const Other: Patient is awake and somewhat agitated arrived with high-flow oxygen General: alert and confusion Nutritional Appearance: average body habitus Orientation/consciousness: confusion HENMT Head: Yes normal to inspection Face and sinus: Yes normal facial exam Mouth: Normal oral and palatal mucosa present Neck Neck: Yes normal visual inspection Chest Chest palpation & inspection: normal inspection of the chest Resp Effort & Inspection: labored Auscultation: rhonchi Cardio Jugular venous distension: no JVD Rate: tachycardic GI Inspection: Yes normal to inspection Palpation (GI): Soft to palpation Skin Other: Cyanotic Lesions: no lesions Neuro Other: He is awake and alert moves all the extremity confuse as his baseline General: confusion Course Reevaluation(s) Reevaluation #1: Doing much better clinically, ABG reviewed no acidosis, I discussed the case with beverage manager Dr. Wilcox review labs eating so the patient can be admitted to telemetry, I discussed the case with Dr. Espinosa was me to send a message to Dr. Neely,I tgiger texted Dr Neely at 3.47 PM she read the message Time: 16:26 Medications Administered Discontinued Medications Generic Name Dose Route Start Last Admin Trade Name Freq PRN Reason Stop Dose Admin Albuterol/Ipratropium 3 ml 02/08/23 15:04 02/08/23 15:06 Albuterol/Iprat 2.5/0.5mg 3 Ml Ampul.Neb INHALE 02/08/23 15:05 Not Given ONCE ONE Cefepime HCl 2 gm/ Sodium 50 mls @ 100 mls/hr 02/08/23 14:55 02/08/23 15:49 Chloride IV 02/08/23 15:24 Infused ONCE ONE Infusion Sodium Chloride 1,968 mls @ 1,968 mls/hr 02/08/23 14:57 02/08/23 16:15 Ns 30 ml/kg infuse over 1 hr (1968 ml) 02/08/23 15:56 Infused IV Infusion .Q1H STA Vancomycin HCl 1,000 mg/ 270 mls @ 270 mls/hr 02/08/23 14:57 02/08/23 15:46 Sodium Chloride IV 02/08/23 15:56 270 mls/hr PREOP ONE Administration Methylprednisolone Sodium Succinate 125 mg 02/08/23 15:04 02/08/23 15:16 Methylprednisolone Sod Succ 125 Mg/2 Ml Vial IVPUSH 02/08/23 15:05 125 mg ONCE ONE Administration Procedures EJ/Peripheral Line Arm L: Skin Cleansed in Sterile Fashion: Yes Size (gauge): 20 IV Secured and Dressing Applied: Yes Patient Tolerated Procedure: well Additional Comments: under US cannulated left antecubital area Medical Decision Making Medical Decision Making [facility] Narrative: Patient presented with agitation cyanosis hypoxia will get a chest x-ray ABG labs hydrate reassess Differential Diagnosis Differential Diagnoses: The differential diagnosis associated with the presentation includes Differential diagnosis pneumonia/COPD exacerbation/hypernatremia/acute renal failure/sepsis Admission/Observation Consideration of admission/observation: Escalation of care including admission/observation considered Consult Healthcare Provider Management of the patient was discussed with: Hospitalist Lab Data [facility] Lab Attestation statement: I reviewed the patient's lab results. 02/08/23 14:34 02/08/23 14:34 Labs: Lab Results 02/08/23 02/08/23 02/08/23 Range/Units 14:32 14:34 14:34 WBC 14.3 H (4.8-10.8) X10*3/uL RBC 5.68 (4.60-5.80) X10*6/uL Hgb 16.4 (14.0-18.0) g/dl Hct 53.4 H (42.0-52.0) % MCV 94.0 (80.0-98.0) fL MCH 28.9 (27.0-33.0) pg MCHC 30.7 L (31.0-36.0) g/dl RDW 14.0 (11.0-16.0) % Plt Count 455 H D (160-400) X10*3/uL MPV 11.8 (9.4-12.4) fL Immature Gran % (Auto) 0.3 (0.0-0.4) % Neut % (Auto) 78.1 H (45-73) % Lymph % (Auto) 14.7 L (20-40) % [place] % (Auto) 5.2 (2-11) % Eos % (Auto) 1.3 (0-4) % Baso % (Auto) 0.4 (0-2) % Lymph # (Auto) 2.1 (1.2-4.9) X10*3/uL [place] # (Auto) 0.7 (0.1-1.2) X10*3/uL Eos # (Auto) 0.2 (0.0-0.4) X10*3/uL Baso # (Auto) 0.1 (0.0-0.2) X10*3/uL Abs Immat Gran (auto) 0.05 H (0.00-0.03) X10*3/uL Absolute Neuts (auto) 11.2 H (2.0-8.3) x10*3/uL Absolute Nucleated RBC 0.000 (0.0-0.012) X10*3/uL Nucleated RBC % (auto) 0.0 (0.0-0.2) /100WBC PT (10.0-13.1) SEC INR (0.9-1.1) O2 Saturation % ABG pH at Pt Temp (7.35-7.45) ABG pCO2 at Pt Temp (32-45) mmHg ABG pO2 at Pt Temp (83-108) mmHg ABG HCO3 (22-26) mmol/L ABG Base Excess (Actual) mmol/L Sodium 151 H (135-145) mmol/L Potassium 4.6 D (3.3-5.1) mmol/L Chloride 110 H (96-108) mmol/L Carbon Dioxide 28 (22-29) mmol/L Anion Gap 18 (12-20) BUN 22 H (9-16) mg/dL Creatinine 0.83 (0.5-1.4) mg/dL Estim Creat Clear Calc 62.5 Estimated GFR > 60 POC Glucose 124 H (60-115) mg/dL Random Glucose 221 H (60-115) mg/dL Calcium 10.3 H D (8.4-10.2) mg/dL Total Bilirubin 0.4 (0.0-1.0) mg/dL AST 24 (5-37) U/L ALT 26 (0-40) U/L Alkaline Phosphatase 113 (39-117) U/L Total Protein 7.2 (6.5-8.0) g/dL Albumin 3.3 L (3.5-5.0) g/dL 02/08/23 02/08/23 Range/Units 14:39 14:55 WBC (4.8-10.8) X10*3/uL RBC (4.60-5.80) X10*6/uL Hgb (14.0-18.0) g/dl Hct (42.0-52.0) % MCV (80.0-98.0) fL MCH (27.0-33.0) pg MCHC (31.0-36.0) g/dl RDW (11.0-16.0) % Plt Count (160-400) X10*3/uL MPV (9.4-12.4) fL Immature Gran % (Auto) (0.0-0.4) % Neut % (Auto) (45-73) % Lymph % (Auto) (20-40) % [place] % (Auto) (2-11) % Eos % (Auto) (0-4) % Baso % (Auto) (0-2) % Lymph # (Auto) (1.2-4.9) X10*3/uL [place] # (Auto) (0.1-1.2) X10*3/uL Eos # (Auto) (0.0-0.4) X10*3/uL Baso # (Auto) (0.0-0.2) X10*3/uL Abs Immat Gran (auto) (0.00-0.03) X10*3/uL Absolute Neuts (auto) (2.0-8.3) x10*3/uL Absolute Nucleated RBC (0.0-0.012) X10*3/uL Nucleated RBC % (auto) (0.0-0.2) /100WBC PT 11.1 (10.0-13.1) SEC INR 1.0 (0.9-1.1) O2 Saturation 100.0 % ABG pH at Pt Temp 7.41 (7.35-7.45) ABG pCO2 at Pt Temp 32 (32-45) mmHg ABG pO2 at Pt Temp 158 H (83-108) mmHg ABG HCO3 21 L (22-26) mmol/L ABG Base Excess (Actual) -2.3 mmol/L Sodium (135-145) mmol/L Potassium (3.3-5.1) mmol/L Chloride (96-108) mmol/L Carbon Dioxide (22-29) mmol/L Anion Gap (12-20) BUN (9-16) mg/dL Creatinine (0.5-1.4) mg/dL Estim Creat Clear Calc Estimated GFR POC Glucose (60-115) mg/dL Random Glucose (60-115) mg/dL Calcium (8.4-10.2) mg/dL Total Bilirubin (0.0-1.0) mg/dL AST (5-37) U/L ALT (0-40) U/L Alkaline Phosphatase (39-117) U/L Total Protein (6.5-8.0) g/dL Albumin (3.5-5.0) g/dL ABG Data Attestation ABG: I personally reviewed and interpreted this ABG as follows: Interpretation: Normal pH no hypoxia Independent Interpretation I performed an independent interpretation of an: EKG and Plain X-Ray Interpretation: I reviewed personally the chest x-ray no acute infiltrate, EKG shows sinus tachycardia with heart rate of 127 Radiology Impression Discussion of test interpretation with radiology: I have reviewed the radiologist's reading. Independent Historian Clinical information obtained from an independent historian. History obtained from or confirmed by: EMS and Other (Record from the [facility] and also I spoke directly with the [facility] nurse) External Record Review External record reviewed: Inpatient record Critical Care Time Critical Care Time Critical Care Time: Yes Total Critical Care Time: 60 Attestation: tachycardia ,tachypnea,altered mental status,possible sepsis,hypernatremia Discharge Plan Discharge Clinical Impression: Acute hypernatremia, Acute dehydration, Leukocytosis Patient Disposition: Admitted As Inpatient
[2023-02-08 15:08] LABS: Alanine Aminotransferase 26 U/L (0-40); Albumin Level 3.3 g/dL (3.5-5.0); Alkaline Phosphatase 113 U/L (39-117); Anion Gap 18 (12-20); Aspartate Amino Transferase 24 U/L (5-37); Bilirubin Total 0.4 mg/dL (0.0-1.0); Blood Urea Nitrogen 22 mg/dL (9-16); Calcium 10.3 mg/dL (8.4-10.2); Carbon Dioxide 28 mmol/L (22-29); Chloride 110 mmol/L (96-108); Creatinine Clr Calc Pharmacy 62.5; Estimated Glomerular Filt Rate > 60; Glucose Random 221 mg/dL (60-115); Potassium 4.6 mmol/L (3.3-5.1); Sodium 151 mmol/L (135-145); Total Protein 7.2 g/dL (6.5-8.0)
--- NOTE | 2023-02-08 15:09 | ECG_ITS ---
Test Reason : DYSPNEA Blood Pressure : / mmHG Vent. Rate : 127 BPM Atrial Rate : 127 BPM P-R Int : 148 ms QRS Dur : 062 ms QT Int : 308 ms P-R-T Axes : 085 088 079 degrees QTc Int : 447 ms Sinus tachycardia Low voltage QRS Septal infarct (cited on or before 11-FEB-2022) Abnormal ECG When compared with ECG of 19-JAN-2023 23:44, ST now depressed in Anterior leads Referred By: Nick Rodríguez Electronically Signed By:SHAWN HART MD
[2023-02-08 15:15] LABS: Troponin-I High Sensitivity 16.1 ng/L (<3.5-35.0)
[2023-02-08] MEDS: methylPREDNISolone Sod Succ 125 MG/2 ML VIAL IVPUSH (15:16)
[2023-02-08] MEDS: cefEPime HCl 2 GM in 0.9 % Sodium Chloride 50 ML IV (15:16)
[2023-02-08 15:23] LABS: Prothrombin Time 11.1 SEC (10.0-13.1)
[2023-02-08] MEDS: vancomycin HCL 1,000 MG in 0.9 % Sodium Chloride 250 ML 270 MG IV (15:46)
--- NOTE | 2023-02-08 15:53 | PC.NURSE ---
pt from [facility]. arrival to [facility] room 5 pt presented cyanotiic, hypoxic on 15L NRB, restless and agitated. EMS received a poor hx and complaint from [facility], were informed hes not right . pt O2 in the 80s on NRB. at 1515 soft restraints initiated on right wrist and left wrist pt in NAD. skin remains cyanotic on the hands, feet and around his mouth and nose. oxygen changed to oxymask and pt titrated down to 11L. LORENZO IV access obtained, 20G in LORENZO AC. left IV placed with u/s guidance.
[2023-02-08 16:06] LABS: Glucose, Whole Blood 124 mg/dL (60-115)
--- NOTE | 2023-02-08 16:57 | PHA.MEDREC ---
Pharmacy Consult ? Medication Reconciliation Pharmacy has completed the medication reconciliation. Patient had a med list from [employer].
[2023-02-08] MEDS: Dextrose 5 % 1,000 ML 100 ML IVCONT (16:58)
[2023-02-08 17:16] LABS: Lactic Acid 4.2 mmol/L (0.5-2.0)
[2023-02-08 17:51] LABS: B Type Natriuretic Peptide 34 pg/mL (<100)
--- NOTE | 2023-02-08 18:00 | PM.IMHP ---
History of Present Illness Date of Service: 02/08/23 Chief Complaint: facial and acro cyanosis 83-year-old gentleman resident of [facility] with past medical history significant for vascular dementia, hypertension, hyperlipidemia, insulin-dependent diabetes mellitus type 2, hypothyroidism, history of COPD, history of CVA patient was recently discharged from [facility] on 01/30/2023 after being treated for hypernatremia, pre renal REINIER, acute metabolic encephalopathy, patient sent to [facility] today since he was noted to be hypoxic and had cyanosis of lips as well as peripheries, patient is unable to provide any meaningful history no further detail history provided by nursing facility, on arrival to the emergency room patient was noted to be restless, altered, and cyanotic on non-rebreather 15 L, his oxygenation was 100%, his rectal temp was 100.4 degrees, pulse 129, respiratory 35, UA unremarkable, chest x-ray showed no acute abnormality, sodium 151, chloride 110, BUN 22 normal creatinine, blood sugars 124, lactic acid 4.2, albumin 3.3, BNP 34, EKG showed sinus tachycardia ventricular rate 127 , no acute ST changes noted, troponin pending, patient is awake, unable to provide meaningful history, patient treated in the emergency room with IV Solu-Medrol 125 and IV fluids, will admit patient to [facility] due to altered mental status, hypernatremia and SIRS with no acute source of infection, question due to multiple pressure ulcers with surrounding erythema/ cellulitis. Review of Systems Review of Systems: unable to obtain due to dementia and mental status change [facility] Medical History Cerebral infarction Cognitive communication deficit COPD (chronic obstructive pulmonary disease) Depressive disorder Diabetes Dysphagia Hearing loss Hemiplegia HTN (hypertension) Hyperlipemia Vascular dementia Social History Household Members: Unknown / Unable to assess Housing: Unknown / Unable to assess Unable to assess alcohol history related to: Refusing to respond Alcohol intake: unknown Patient Tobacco Use Status: Tobacco use Unknown Use of substances other than those prescribed or required for medical reasons: Refusing to respond Currently Displaying Signs/Symptoms of Drug Intoxication Withdrawal: No Advance Directives: No Advance Directives Information Provided: No Recently lost weight without trying: Unsure Nutrition Risks: Dental problems Poor oral hygiene: No service: No Current occupational status: disabled Meds Allergies Allergy/AdvReac Type Severity Reaction Status Date / Time No Known Allergies Allergy Intermediate UNKNOWN Verified 01/22/23 12:01 [NO KNOWN ALLERGIES] Active Medications: Current Medications Acetaminophen (Acetaminophen Supp 650 Mg Supp.Rect) 650 mg MN Q6H PRN PRN Reason: Pain, Mild (Pain Scale 1-3) Albuterol Sulfate (Albuterol Sulfate 90 Mcg 8 Gm Inhaler) 2 puff INHALE BID [facility] Aspirin (Aspirin 81 Mg Tab.Chew) 81 mg PO DAILY [facility] Collagenase (Collagenase Clostridium Hist. 30 Gm Tube) 1 appl TOPICAL DAILY [facility]; Protocol Enoxaparin Sodium (Enoxaparin Sodium 40 Mg/0.4 Ml Syringe) 40 mg SUBCUT Q24H [facility] Dextrose (D5w) 1,000 mls @ 100 mls/hr IVCONT .Q10H [facility] Last Admin: 02/08/23 16:58 Dose: 100 mls/hr Morphine Sulfate (Morphine Sulfate 4 Mg/Ml Cartridge) 2 mg IVPUSH Q4H PRN; Protocol PRN Reason: Pain, Severe (Pain Scale 7-10) Pharmacy Consult (Consult Rx Vancomycin Dosing) 1 each MISCELLANE DAILY PRN PRN Reason: Consult order Sodium Biphosphate/Sodium Phosphate (Sodium Phosphate,[place]y-Dibasic 133 Ml Enema) 118 ml MN DAILY PRN PRN Reason: Constipation Sodium Chloride (0.9 % Sodium Chloride Flush 3 Ml Syringe) 3 ml IVFLUSH QSHIFT [facility] Home Medications Medication Instructions Recorded Confirmed Last Taken Type albuterol sulfate 90 mcg/actuation 2 puff inhalation BID 08/13/20 02/08/23 01/26/23 06:00 History aerosol inhaler (ProAir HFA) aspirin 81 mg chewable tablet 81 mg PO DAILY 08/13/20 02/08/23 01/26/23 History atorvastatin 40 mg tablet (Lipitor) 40 mg PO BEDTIME 08/13/20 02/08/23 01/25/23 History docusate sodium 100 mg capsule 200 mg PO DAILY 08/13/20 02/08/23 01/26/23 History (Colace) insulin aspart U-100 100 unit/mL 1 sliding scale dose subcut 08/13/20 02/08/23 01/25/23 History subcutaneous solution USEASDIRECTD lisinopril 10 mg tablet 10 mg PO DAILY 08/13/20 02/08/23 01/26/23 History melatonin 3 mg tablet 3 mg PO BEDTIME 08/13/20 02/08/23 01/25/23 History metformin 1,000 mg tablet 1,000 mg PO BID 08/13/20 02/08/23 01/26/23 06:00 History sennosides 8.6 mg capsule (senna) 8.6 mg PO BEDTIME 08/13/20 02/08/23 01/25/23 History acetaminophen 325 mg tablet 650 mg PO Q6H PRN Fever Or Pain 01/26/23 02/08/23 Unknown History (Tylenol) aluminum-mag hydroxide-simethicone 5 ml PO Q4H PRN Heartburn 01/26/23 02/08/23 Unknown History 200 mg-200 mg-20 mg/5 mL oral susp bisacodyl 10 mg rectal suppository 10 mg MN DAILY PRN Constipation 01/26/23 02/08/23 Unknown History dapagliflozin propanediol 10 mg 10 mg PO DAILY 01/26/23 02/08/23 01/26/23 History tablet (Farxiga) dulaglutide 1.5 mg/0.5 mL 1.5 mg subcut WE@0900 01/26/23 02/08/23 Unknown History subcutaneous pen injector (Trulicity) levothyroxine 25 mcg tablet 25 mcg PO DAILY@0600 01/26/23 02/08/23 01/26/23 History metoprolol succinate 25 mg 75 mg PO BEDTIME 01/26/23 02/08/23 01/25/23 History tablet,extended release 24 hr peg [id number] 1 1 drp ophthalmic (eye) TID PRN Dry 01/26/23 02/08/23 Unknown History %-0.2 %-0.2 % eye drops Eyes (Artificial Tears ([id number])) sennosides 8.6 mg tablet (senna) 8.6 mg PO DAILY PRN Constipation 01/26/23 02/08/23 Unknown History sodium phosphates 19 gram-7 118 ml MN DAILY PRN Constipation 01/26/23 02/08/23 Unknown History gram/118 mL enema (Fleet Enema) collagenase clostridium histo. 250 1 appl topical DAILY 02/08/23 02/08/23 Unknown History unit/gram topical ointment (Santyl) collagenase clostridium histo. 250 1 appl topical DAILY PRN Wound Care 02/08/23 02/08/23 Unknown History unit/gram topical ointment (Santyl) oxycodone-acetaminophen 5 mg-325 1 tab PO Q4H PRN Moderate Pain 02/08/23 02/08/23 Unknown History mg tablet (Scale Score 5-6) Physical Exam Vital Signs and Narrative: Vital Signs: Last Vital Signs Temp 100.4 F 02/08/23 14:46 Pulse 115 H 02/08/23 17:16 Resp 26 H 02/08/23 17:16 BP 159/64 H 02/08/23 17:16 Pulse Ox 96 02/08/23 17:16 O2 Del Method Oxymask 02/08/23 17:16 O2 Flow Rate 2 02/08/23 17:16 Oxygen Flow Rate 15 02/08/23 14:46 BMI result Body Mass Index 20.7 Const: Other: General awake alert, resting comfortably in no acute distress. anicteric sclera Neck supple no JVD. CVS tachy regular rate rhythm, Respiratory lungs clear to auscultation, no respiratory distress, no wheeze, no rhonchi. Gastrointestinal abdomen soft, nontender, bowel sounds audible, no rigidity. Extremities no edema. Neuro moving all 4 extremity, speech clear. Skin multiple dry scab both legs, pressure wound left heel lateral malleolus, right heel wound with black eschar with mild surrounding erythema. psych impaired insight back: macerated skin with small pressure wound right buttock/ surrounding erythema stage I coccyx Results Labs 02/08/23 14:34 02/08/23 14:34 Labs: Laboratory Results - last 24 hr 02/08/23 02/08/23 02/08/23 14:32 14:34 14:34 MCV 94.0 MCH 28.9 MCHC 30.7 L RDW 14.0 Plt Count 455 H D MPV 11.8 Immature Gran % (Auto) 0.3 Neut % (Auto) 78.1 H Lymph % (Auto) 14.7 L Hardy % (Auto) 5.2 Eos % (Auto) 1.3 Baso % (Auto) 0.4 Lymph # (Auto) 2.1 Hardy # (Auto) 0.7 Eos # (Auto) 0.2 Baso # (Auto) 0.1 Abs Immat Gran (auto) 0.05 H Absolute Neuts (auto) 11.2 H Absolute Nucleated RBC 0.000 Nucleated RBC % (auto) 0.0 PT INR O2 Saturation ABG pH at Pt Temp ABG pCO2 at Pt Temp ABG pO2 at Pt Temp ABG HCO3 ABG Base Excess (Actual) Anion Gap 18 Estim Creat Clear Calc 62.5 Estimated GFR > 60 POC Glucose 124 H Random Glucose 221 H Lactic Acid Calcium 10.3 H D Total Bilirubin 0.4 AST 24 ALT 26 Alkaline Phosphatase 113 B-Natriuretic Peptide Total Protein 7.2 Albumin 3.3 L 02/08/23 02/08/23 02/08/23 14:39 14:55 16:37 MCV MCH MCHC RDW Plt Count MPV Immature Gran % (Auto) Neut % (Auto) Lymph % (Auto) Hardy % (Auto) Eos % (Auto) Baso % (Auto) Lymph # (Auto) Hardy # (Auto) Eos # (Auto) Baso # (Auto) Abs Immat Gran (auto) Absolute Neuts (auto) Absolute Nucleated RBC Nucleated RBC % (auto) PT 11.1 INR 1.0 O2 Saturation 100.0 ABG pH at Pt Temp 7.41 ABG pCO2 at Pt Temp 32 ABG pO2 at Pt Temp 158 H ABG HCO3 21 L ABG Base Excess (Actual) -2.3 Anion Gap Estim Creat Clear Calc Estimated GFR POC Glucose Random Glucose Lactic Acid Calcium Total Bilirubin AST ALT Alkaline Phosphatase B-Natriuretic Peptide 34 Total Protein Albumin 02/08/23 16:37 MCV MCH MCHC RDW Plt Count MPV Immature Gran % (Auto) Neut % (Auto) Lymph % (Auto) Hardy % (Auto) Eos % (Auto) Baso % (Auto) Lymph # (Auto) Hardy # (Auto) Eos # (Auto) Baso # (Auto) Abs Immat Gran (auto) Absolute Neuts (auto) Absolute Nucleated RBC Nucleated RBC % (auto) PT INR O2 Saturation ABG pH at Pt Temp ABG pCO2 at Pt Temp ABG pO2 at Pt Temp ABG HCO3 ABG Base Excess (Actual) Anion Gap Estim Creat Clear Calc Estimated GFR POC Glucose Random Glucose Lactic Acid 4.2 H* Calcium Total Bilirubin AST ALT Alkaline Phosphatase B-Natriuretic Peptide Total Protein Albumin Imaging Radiologist's Impressions: Impressions Chest X-Ray 02/08/23 14:48 IMPRESSION: Emphysematous changes no active cardiopulmonary disease Assessment and Plan (1) Acute hypernatremia: Status: Acute (2) Leukocytosis: Status: Acute (3) Metabolic encephalopathy: Status: Acute Plan 83yo M long-term resident of [facility] with vascular dementia, COPD, HTN, HLD, DM2, hypothyroidism, prior CVA presenting with AMS, cyanosis and hypoxia, Recently discharged from [facility] on January 30 after treated for hypovolemic hypernatremia, prerenal REINIER and acute metabolic encephalopathy and also finished course of antibiotics for pyelonephritis, On presentation, patient restless, cyanotic with elevated sodium, lactic acidosis normal renal function, tachycardic tachypneic # hypo-volemic hypernatremia - likely due to decreased by mouth intake will treat with IV D5W follow BMP # Sepsis likely due to cellulitis tachycardic, tachypneic with fever and leukocytosis normal urinalysis and chest x-ray, pressures wounds both feet and buttock with surrounding redness question cellulitis CT abdomen and pelvis on 01/20 showed normal gallbladder, abdominal wall and kidneys, recent CT chest unremarkable benign abdominal examination will hold off on further imaging studies received IV cefepime/ IV vancomycin in the ED will continue IV cefepime clinical course, follow blood cultures follow CBC likely tachycardia related to not taking by mouth beta-blockers, will place on IV metoprolol # Hypoxic respiratory failure/cyanosis stable oxygenation ,will gradually wean oxygen chest x-ray showed no acute infection, clear lung examination hold off on antibiotics follow clinical course, # lactic acidosis - multifactoriall likely due to dehydration, metformin, use of updraft treatment, continue IV fluids follow lactic acid no source of infection noted. # acute metabolic encephalopathy - due to hyperNa, baseline vascular dementia, able to speak + follow basic commands when well will keep NPO and bedside swallow eval once more awake. # HTN will hold lisinopril and metoprolol since patient NPO with mental status change, will give IV metoprolol # HLD resume statins when able to take by mouth medication # hypothyroidism will give IV levothyroxine # DM2 will place on insulin sliding scale q.6 hours diabetic diet when able to tolerate by mouth # COPD no acute exacerbation , continue inhalers # benign prostate hypertrophy continue finasteride was supposed to be on terazosin [address], [address] on Flomax 0.4 mg daily # VTE ppx: Lovenox # dispo: eventual return to [facility] # code status full code In my clinical judgment, the patient requires 2 night inpatient hospitalization due to electrolyte abnormality, acute metabolic encephalopathy and SIRS requiring iv fuids. Time Spent With Patient Time: Total time managing care of this patient today ____ minutes. Quality Stroke Does the patient have a stroke diagnosis?: No VTE Prior VTE?: No VTE Risk Level:: Medical - moderate - high VTE Device Contraindication: Treatment Not Indicated VTE Drug Contraindication: N/A - Med Ordered
[2023-02-08 18:40] LABS: Reflex Lactate? Lactic Acid Added
[2023-02-08] MEDS: Enoxaparin Sodium 40 MG/0.4 ML SYRINGE SUBCUT (18:48)
--- NOTE | 2023-02-08 19:02 | PC.NURSE ---
pt incontinent of urine and stool. plan to place [place] cath. multiple skin tears/pressure wounds to pts buttocks, heels and legs.
--- NOTE | 2023-02-08 19:10 | PC.NURSE ---
assumed care of pt recvd handoff report from KATI Dash no apparent distress soft restraints remain in place pt disoriented, unable to make needs known, unable to answer questions appropriately- no response will CTM
[2023-02-08 19:12] LABS: Glucose, Whole Blood 174 mg/dL (60-115)
[2023-02-08] MEDS: Insulin Lispro 100 UNIT/ML 3 ML VIAL SUBCUT (19:30)
[2023-02-08 19:46] LABS: ~Lactic Acid-LAB USE ONLY 4.8 mmol/L (0.5-2.0)
--- NOTE | 2023-02-08 20:18 | PC.NURSE ---
Report given to KATI Hicks. Pt to room 483.
--- NOTE | 2023-02-08 20:51 | PC.NURSE ---
pt incontinent of urine, cleaned/dried, linens changed observed wound on coccyx area picture taken and sent to hospitalistSina called KATI Hicks to update on wound on buttocks area
--- NOTE | 2023-02-08 21:09 | PC.NURSE ---
Wounds to buttocks found by RN Марина. Hospitalist notified. Pictures sent via [place] to hospitalist requesting hospitalist to add photos into the chart. Nursing unable to print photos to add into paper chart as printer is not working at this time.
[2023-02-08 21:17] LABS: Reflex Lactate? 2 Y
[2023-02-08 22:30] LABS: ~Lactic Acid-LAB USE ONLY 3.5 mmol/L (0.5-2.0)
[2023-02-09] VITALS (7 sets, daily range): BP systolic 107–159; BP diastolic 49–74; PULSE 80–97; RESP 18–20; TEMP 36.1–36.4; O2SAT 95–100
[2023-02-09 01:19] LABS: Glucose, Whole Blood 177 mg/dL (60-115)
[2023-02-09] MEDS: 0.9 % Sodium Chloride Flush 3 ML SYRINGE IVFLUSH (01:50)
[2023-02-09] MEDS: Insulin Lispro 100 UNIT/ML 3 ML VIAL SUBCUT (01:50)
[2023-02-09] MEDS: Metoprolol Tartrate 5 MG/5 ML VIAL 2.5 MG IVPUSH ×4 (01:51→17:42)
[2023-02-09] MEDS: Dextrose 5 % 1,000 ML 100 ML IVCONT ×2 (01:55→12:54)
--- NOTE | 2023-02-09 02:32 | PC.NURSE ---
Patient confuse, unable to provide history, impulsive, yells out occasionally, requires frequent redirection. Soft restraints removed upon admission, camera and frequent safety checks done throughout shift.
[2023-02-09] MEDS: OLANZapine 10 MG VIAL 5 MG IM (04:58)
[2023-02-09] MEDS: Levothyroxine Sodium 100 MCG/5 ML VIAL 12.5 MCG IVPUSH (07:27)
[2023-02-09 07:46] LABS: Glucose, Whole Blood 102 mg/dL (60-115)
--- NOTE | 2023-02-09 08:02 | MHC.CM.PN ---
Patient is a LTC Resident at [facility] and returning there, once medically cleared for dc is the goal. CM has initiated and will follow for dc planning. IMM to be addressed with Patient's Guardian/Litzy at [phone].
[2023-02-09] MEDS: cefEPime HCl 2 GM in 0.9 % Sodium Chloride 50 ML IV ×2 (08:09→15:20)
[2023-02-09] MEDS: Aspirin 81 MG TAB.CHEW PO (08:10)
[2023-02-09 11:40] LABS: Glucose, Whole Blood 157 mg/dL (60-115)
[2023-02-09] MEDS: Finasteride 5 MG TABLET PO (15:20)
--- NOTE | 2023-02-09 15:24 | P.PNIM_ITS ---
Subjective Subjective Date of Service: 02/09/23 Interval History: patient awake alert, yelling to leave the room, tolerated bedside swallow eval eating pudding, no overnight events, unable to obtain meaningful history due to underlying dementia, patient refused lab draw this morning, on face mask 3 L with oxygenation 100%. Review of Systems unable to obtain review of system due to dementia Physical Exam Vital Signs: Vital Signs: Last Vital Signs Temp 97.5 F 02/09/23 15:09 Pulse 81 02/09/23 15:09 Resp 20 02/09/23 15:09 BP 107/49 L 02/09/23 15:09 Pulse Ox 98 02/09/23 15:09 O2 Del Method Nasal Cannula 02/09/23 15:09 O2 Flow Rate 2 02/09/23 15:09 Oxygen Flow Rate 15 02/08/23 14:46 BMI result Body Mass Index 20.7 Const: Other: General? awake seth rt, resting comfor tably in no acute distress. anicteri c sclera Neck? sup ple no JVD. CVS ta courtney regular rate r hythm, Respiratory lungs clear to au scultation, no res piratory distress, no wheeze, no rho nchi. Gastrointest inal abdomen soft, nontender, bowel sounds audible, no rigidity. Extremi ties no edema. cya notic fingertips c old. Neuro moving all 4 extremity, s peech clear. Skin? multiple dry scab both legs, pressu re wound left heel lateral malleolus , right heel wound with black eschar with mild surroun ding erythema. psy ch: impaired insig ht back:? macerate d skin with small pressure wound rig ht buttock/ surrou nding erythema sta ge I coccyx Objective Data Active Medications Acetaminophen (Acetaminophen Supp 650 Mg Supp.Rect) 650 mg PA Q6H PRN PRN Reason: Pain, Mild (Pain Scale 1-3) Albuterol Sulfate (Albuterol Sulfate 90 Mcg 8 Gm Inhaler) 2 puff INHALE RBID [facility] Last Admin: 02/09/23 07:24 Dose: Not Given Documented By: CEASAR Non-Admin Reason: Patient Condition Contraindication Aspirin (Aspirin 81 Mg Tab.Chew) 81 mg PO DAILY [facility] Last Admin: 02/09/23 08:10 Dose: 81 mg Documented By: VIVIENNE Atorvastatin Calcium (Atorvastatin Calcium 40 Mg Tablet) 40 mg PO BEDTIME [facility] Collagenase (Collagenase Clostridium Hist. 30 Gm Tube) 1 appl TOPICAL DAILY [facility]; Protocol Last Admin: 02/09/23 12:43 Dose: Not Given Documented By: VIVIENNE Non-Admin Reason: Med Not Available Dextrose (Dextrose 50 % 25 Gm/50 Ml Syringe) 25 gm IVPUSH Q15M PRN; Protocol PRN Reason: per Hypoglycemia Standing Ord. Enoxaparin Sodium (Enoxaparin Sodium 40 Mg/0.4 Ml Syringe) 40 mg SUBCUT Q24H [facility] Last Admin: 02/08/23 18:48 Dose: 40 mg Documented By: AGUSTIN Finasteride (Finasteride 5 Mg Tablet) 5 mg PO DAILY [facility] Glucose (Glucose Gel 15 Gm Gel..Gram.) 15 gm PO Q15M PRN; Protocol PRN Reason: per Hypoglycemia Standing Ord. Dextrose (D5w) 1,000 mls @ 100 mls/hr IVCONT .Q10H [facility] Last Admin: 02/09/23 12:54 Dose: 100 mls/hr Documented By: VIVIENNE Cefepime HCl 2 gm/ Sodium (Chloride) 50 mls @ 100 mls/hr IV Q8H [facility] Last Infusion: 02/09/23 08:41 Dose: 0 mls/hr Documented By: VIVIENNE Insulin Human Lispro (Insulin Lispro 100 Unit/Ml 3 Ml Vial) 0 unit SUBCUT Q6H [facility]; Protocol Last Admin: 02/09/23 12:19 Dose: Not Given Documented By: VIVIENNE Non-Admin Reason: No Insulin Coverage Comments: patient only at 25% for meal, not covering for insufficient nutrition Levothyroxine Sodium (Levothyroxine Sodium 100 Mcg/5 Ml Vial) 12.5 mcg IVPUSH DAILY@0600 [facility] Last Admin: 02/09/23 07:27 Dose: 12.5 mcg Documented By: CATY Melatonin (Melatonin 3 Mg Tablet) 3 mg PO BEDTIME [facility] Metoprolol Tartrate (Metoprolol Tartrate 5 Mg/5 Ml Vial) 2.5 mg IVPUSH Q6H [facility] Last Admin: 02/09/23 12:51 Dose: 2.5 mg Documented By: VIVIENNE Morphine Sulfate (Morphine Sulfate 4 Mg/Ml Cartridge) 2 mg IVPUSH Q4H PRN; Protocol PRN Reason: Pain, Severe (Pain Scale 7-10) Pharmacy Consult (Consult Rx Vancomycin Dosing) 1 each MISCELLANE DAILY PRN PRN Reason: Consult order Sodium Biphosphate/Sodium Phosphate (Sodium Phosphate,[place]-Dibasic 133 Ml Enema) 118 ml PA DAILY PRN PRN Reason: Constipation Sodium Chloride (0.9 % Sodium Chloride Flush 3 Ml Syringe) 3 ml IVFLUSH QSHIFT [facility] Last Admin: 02/09/23 08:12 Dose: Not Given Documented By: VIVIENNE Non-Admin Reason: IV Running Tamsulosin HCl (Tamsulosin Hcl 0.4 Mg Capsule) 0.4 mg PO BEDTIME [facility] Labs 02/08/23 14:34 02/08/23 14:34 Labs: Laboratory Results - last 24 hr 02/08/23 02/08/23 02/08/23 14:32 16:37 16:37 POC Glucose 124 H Lactic Acid Lactic Acid F/U @ 2Hr Lactic Acid F/U @ 4Hr Troponin I High Sens 16.1 B-Natriuretic Peptide 02/08/23 02/08/23 02/08/23 16:37 19:07 19:12 POC Glucose 174 H Lactic Acid 4.2 H* Lactic Acid F/U @ 2Hr 4.8 H* Lactic Acid F/U @ 4Hr Troponin I High Sens B-Natriuretic Peptide 02/08/23 02/09/23 02/09/23 22:03 01:14 07:32 POC Glucose 177 H 102 Lactic Acid Lactic Acid F/U @ 2Hr Lactic Acid F/U @ 4Hr 3.5 H* Troponin I High Sens B-Natriuretic Peptide 02/09/23 11:36 POC Glucose 157 H Lactic Acid Lactic Acid F/U @ 2Hr Lactic Acid F/U @ 4Hr Troponin I High Sens B-Natriuretic Peptide Assessment and Plan (1) Acute hypernatremia: Status: Acute (2) Leukocytosis: Status: Acute (3) Metabolic encephalopathy: Status: Acute (4) BPH w urinary obs/LUTS: Status: Acute Plan 83yo M long-term resident of [facility] with vascular dementia, COPD, HTN, HL D, DM2, hypothyroidism, prior CVA presenting with AMS,? cyanosis and hypoxia, Recently? discharged from [facility] on January 30 after treated for hypovolemic hypernatremia, prerenal REINIER and acute metabolic encephalopathy and also finished course of antibiotics for pyelonephritis, On presentation,? patient restless, cyanotic with elevated sodium, lactic acidosis? normal renal function, tachycardic tachypneic # hypo-volemic hypernatremia -? likely? due to decreased by mouth intake,on IV D5W follow BM and adjust fluids. # Sepsis? likely due to cellulitis ? ? tachycardic, tachypneic and fever resolved ? ? normal urinalysis and chest x-ray, pressures wounds both feet? and buttock with surrounding redness question cellulitis ? ? CT abdomen and pelvis on 01/20 showed normal? gallbladder, abdominal wall and kidneys, recent CT chest unremarkable ? ? on IV cefepime, follow clinical course, follow blood cultures follow CBC obtained ID and wound care consult ? ? #? Hypoxic respiratory failure/cyanosis ? ? stable oxygenation , normal troponin, clinically stable, no tachypnea, no respiratory distress, placed on nasal cannula, oxygenation stable at 94, noted to have cold cyanotic fingertips that improved with warmth. #? lactic acidosis - multifactoriall likely due to dehydration, metformin, use of updraft treatment, continue IV fluids follow lactic acid. # acute metabolic encephalopathy - awake alert, not answering questions but yelling, at baseline follow basic commands when well ?? patient passed bedside swallow eval will place on pureed and nectar thick liquids with one-to-one feeds # HTN? will hold lisinopril and metoprolol since refusing meds, continue IV me toprolol # HLD resume statins # hypothyroidism on IV levothyroxine # DM2 on? insulin sliding scale, diabetic diet follow point of care blood sugars # COPD no acute exacerbation , continue inhalers. #? benign prostate hypertrophy continue finasteride and Flomax 0.4 mg daily, noted to have high bladder scan, prior history of hematuria with Galaviz insertion continue to give voiding trial if bladder scan remains elevated place Galaviz catheter # VTE ppx:? Lovenox # dispo: eventual return to [facility] #? code status full code patient need continued inpatient hospitalization due to electrolyte abnormality, acute metabolic encephalopathy and sepsis for iv abx. Time Spent With Patient Time: Total time managing care of this patient today ____ minutes. Quality Stroke Does the patient have a stroke diagnosis?: No VTE Prior VTE?: No VTE Risk Level:: Medical - moderate - high VTE Device Contraindication: Treatment Not Indicated VTE Drug Contraindication: N/A - Med Ordered
[2023-02-09 15:49] LABS: Hematocrit 50.2 % (42.0-52.0); Hemoglobin 15.3 g/dl (14.0-18.0); Mean Corpuscular HGB Conc 30.5 g/dl (31.0-36.0); Mean Corpuscular Hemoglobin 28.8 pg (27.0-33.0); Mean Corpuscular Volume 94.4 fL (80.0-98.0); Mean Platelet Volume 11.2 fL (9.4-12.4); Platelet Count 331 X10*3/uL (160-400); Red Blood Count 5.32 X10*6/uL (4.60-5.80); White Blood Count 11.6 X10*3/uL (4.8-10.8)
[2023-02-09 16:02] LABS: Glucose, Whole Blood 40 mg/dL (60-115)
[2023-02-09 16:29] LABS: Anion Gap 15 (12-20); Blood Urea Nitrogen 17 mg/dL (9-16); Calcium 9.4 mg/dL (8.4-10.2); Carbon Dioxide 21 mmol/L (22-29); Chloride 114 mmol/L (96-108); Creatinine Clr Calc Pharmacy 71.1; Estimated Glomerular Filt Rate > 60; Glucose Random 152 mg/dL (60-115); Potassium 4.3 mmol/L (3.3-5.1); Sodium 146 mmol/L (135-145)
[2023-02-09 16:45] LABS: Glucose, Whole Blood 97 mg/dL (60-115)
[2023-02-09] MEDS: Enoxaparin Sodium 40 MG/0.4 ML SYRINGE SUBCUT (17:42)
[2023-02-09 17:44] LABS: Reflex Lactate? Lactic Acid Added
[2023-02-09] MEDS: Dextrose 5 % and 0.45 % NaCl 1,000 ML 100 ML IVCONT (17:44)
--- NOTE | 2023-02-09 18:50 | P.CONGS_ITS ---
History of Present Illness Consult details Consult date: 02/10/23 Requesting physician: Daryn Neely Narrative: 83yo M long-term resident of [facility] with vascular dementia, COPD, HTN, HLD, DM2, hypothyroidism, prior CVA presenting with AMS,? cyanosis and hypoxia, Recently? discharged from [facility] on January 30 after treated for hypovolemic hypernatremia, prerenal REINIER and acute metabolic encephalopathy and also finished course of antibiotics for pyelonephritis, On presentation,? patient restless, cyanotic with elevated sodium, lactic acidosis? normal renal function, tachycardic tachypneic admitted to medicine but noted to have sacral decub wound that was not present on discharge last admission. also with right heel wound Review of Systems Review of Systems: Yes Unobtainable due to mental status PMFSH Past Medical History Medical History Cerebral infarction Cognitive communication deficit COPD (chronic obstructive pulmonary disease) Depressive disorder Diabetes Dysphagia Hearing loss Hemiplegia HTN (hypertension) Hyperlipemia Vascular dementia Social History Social History Household Members: Unknown / Unable to assess Housing: Unknown / Unable to assess Unable to assess alcohol history related to: Refusing to respond Alcohol intake: unknown Patient Tobacco Use Status: Tobacco use Unknown Use of substances other than those prescribed or required for medical reasons: Refusing to respond Currently Displaying Signs/Symptoms of Drug Intoxication Withdrawal: No Advance Directives: No Advance Directives Information Provided: No Recently lost weight without trying: Unsure Nutrition Risks: Dental problems Poor oral hygiene: No service: No Current occupational status: disabled Meds Allergies Allergy/AdvReac Type Severity Reaction Status Date / Time No Known Allergies Allergy Intermediate UNKNOWN Verified 01/22/23 12:01 [NO KNOWN ALLERGIES] Active Medications: Current Medications Acetaminophen (Acetaminophen Supp 650 Mg Supp.Rect) 650 mg [place] Q6H PRN PRN Reason: Pain, Mild (Pain Scale 1-3) Albuterol Sulfate (Albuterol Sulfate 90 Mcg 8 Gm Inhaler) 2 puff INHALE RBID [facility] Last Admin: 02/09/23 07:24 Dose: Not Given Aspirin (Aspirin 81 Mg Tab.Chew) 81 mg PO DAILY [facility] Last Admin: 02/09/23 08:10 Dose: 81 mg Atorvastatin Calcium (Atorvastatin Calcium 40 Mg Tablet) 40 mg PO BEDTIME [facility] Collagenase (Collagenase Clostridium Hist. 30 Gm Tube) 1 appl TOPICAL DAILY [facility]; Protocol Last Admin: 02/09/23 12:43 Dose: Not Given Dextrose (Dextrose 50 % 25 Gm/50 Ml Syringe) 25 gm IVPUSH Q15M PRN; Protocol PRN Reason: per Hypoglycemia Standing Ord. Enoxaparin Sodium (Enoxaparin Sodium 40 Mg/0.4 Ml Syringe) 40 mg SUBCUT Q24H [facility] Last Admin: 02/09/23 17:42 Dose: 40 mg Finasteride (Finasteride 5 Mg Tablet) 5 mg PO DAILY [facility] Last Admin: 02/09/23 15:20 Dose: 5 mg Glucose (Glucose Gel 15 Gm Gel..Gram.) 15 gm PO Q15M PRN; Protocol PRN Reason: per Hypoglycemia Standing Ord. Dextrose (D5w) 1,000 mls @ 100 mls/hr IVCONT .Q10H [facility] Last Admin: 02/09/23 12:54 Dose: 100 mls/hr Cefepime HCl 2 gm/ Sodium (Chloride) 50 mls @ 100 mls/hr IV Q8H [facility] Last Infusion: 02/09/23 16:43 Dose: Infused Dextrose/Sodium Chloride (D51/2ns) 1,000 mls @ 100 mls/hr IVCONT .Q10H [facility] Last Admin: 02/09/23 17:44 Dose: 100 mls/hr Insulin Human Lispro (Insulin Lispro 100 Unit/Ml 3 Ml Vial) 0 unit SUBCUT Q6H [facility]; Protocol Last Admin: 02/09/23 18:44 Dose: Not Given Levothyroxine Sodium (Levothyroxine Sodium 100 Mcg/5 Ml Vial) 12.5 mcg IVPUSH DAILY@0600 [facility] Last Admin: 02/09/23 07:27 Dose: 12.5 mcg Melatonin (Melatonin 3 Mg Tablet) 3 mg PO BEDTIME [facility] Metoprolol Tartrate (Metoprolol Tartrate 5 Mg/5 Ml Vial) 2.5 mg IVPUSH Q6H [facility] Last Admin: 02/09/23 17:42 Dose: 2.5 mg Morphine Sulfate (Morphine Sulfate 4 Mg/Ml Cartridge) 2 mg IVPUSH Q4H PRN; Protocol PRN Reason: Pain, Severe (Pain Scale 7-10) Pharmacy Consult (Consult Rx Vancomycin Dosing) 1 each MISCELLANE DAILY PRN PRN Reason: Consult order Sodium Biphosphate/Sodium Phosphate (Sodium Phosphate,[place]-Dibasic 133 Ml Enema) 118 ml [place] DAILY PRN PRN Reason: Constipation Sodium Chloride (0.9 % Sodium Chloride Flush 3 Ml Syringe) 3 ml IVFLUSH QSHIFT [facility] Last Admin: 02/09/23 17:03 Dose: Not Given Tamsulosin HCl (Tamsulosin Hcl 0.4 Mg Capsule) 0.4 mg PO BEDTIME [facility] Home Medications Medication Instructions Recorded Confirmed Last Taken Type albuterol sulfate 90 mcg/actuation 2 puff inhalation BID 08/13/20 02/08/23 01/26/23 06:00 History aerosol inhaler (ProAir HFA) aspirin 81 mg chewable tablet 81 mg PO DAILY 08/13/20 02/08/23 01/26/23 History atorvastatin 40 mg tablet (Lipitor) 40 mg PO BEDTIME 08/13/20 02/08/23 01/25/23 History docusate sodium 100 mg capsule 200 mg PO DAILY 08/13/20 02/08/23 01/26/23 History (Colace) insulin aspart U-100 100 unit/mL 1 sliding scale dose subcut 08/13/20 02/08/23 01/25/23 History subcutaneous solution USEASDIRECTD lisinopril 10 mg tablet 10 mg PO DAILY 08/13/20 02/08/23 01/26/23 History melatonin 3 mg tablet 3 mg PO BEDTIME 08/13/20 02/08/23 01/25/23 History metformin 1,000 mg tablet 1,000 mg PO BID 08/13/20 02/08/23 01/26/23 06:00 History sennosides 8.6 mg capsule (senna) 8.6 mg PO BEDTIME 08/13/20 02/08/23 01/25/23 History acetaminophen 325 mg tablet 650 mg PO Q6H PRN Fever Or Pain 01/26/23 02/08/23 Un known History (Tylenol) aluminum-mag hydroxide-simethicone 5 ml PO Q4H PRN Heartburn 01/26/23 02/08/23 Unknown History 200 mg-200 mg-20 mg/5 mL oral susp bisacodyl 10 mg rectal suppository 10 mg [place] DAILY PRN Constipation 01/26/23 02/08/23 Unknown History dapagliflozin propanediol 10 mg 10 mg PO DAILY 01/26/23 02/08/23 01/26/23 History tablet (Farxiga) dulaglutide 1.5 mg/0.5 mL 1.5 mg subcut WE@0901/26/23 02/08/23 Unknown History subcutaneous pen injector (Trulicvan [facility]) levothyroxine 25 mcg tablet 25 mcg PO DAILY@0601/26/23 02/08/23 01/26/23 History metoprolol succinate 25 mg 75 mg PO BEDTIME 01/26/23 02/08/23 01/25/23 History tablet,extended release 24 hr peg [id number] 1 1 drp ophthalmic (eye) TID PRN Dry 01/26/23 02/08/23 Unknown History %-0.2 %-0.2 % eye drops Eyes (Artificial Tears ([id number])) sennosides 8.6 mg tablet (senna) 8.6 mg PO DAILY PRN Constipation 01/26/23 02/08/23 Unknown History sodium phosphates 19 gram-7 118 ml [place] DAILY PRN Constipation 01/26/23 02/08/23 Unknown History gram/118 mL enema (Fleet Enema) collagenase clostridium histo. 250 1 appl topical DAILY 02/08/23 02/08/23 Unknown History unit/gram topical ointment (Santyl) collagenase clostridium histo. 250 1 appl topical DAILY PRN Wound Care 02/08/23 02/08/23 Unknown History unit/gram topical ointment (Santyl) oxycodone-acetaminophen 5 mg-325 1 tab PO Q4H PRN Moderate Pain 02/08/23 02/08/23 Unknown History mg tablet (Scale Score 5-6) Physical Exam Vital Signs: Vital Signs: Last Vital Signs Temp 97.5 F 02/09/23 15:09 Pulse 81 02/09/23 15:09 Resp 20 02/09/23 15:09 BP 107/49 L 02/09/23 15:09 Pulse Ox 98 02/09/23 15:09 O2 Del Method Nasal Cannula 02/09/23 15:09 O2 Flow Rate 2 02/09/23 15:09 Oxygen Flow Rate 15 02/08/23 14:46 BMI result Body Mass Index 20.7 Skin: Other: sacral wound with stage 2 pressure area but central near midline area has an unstageable aspect to the wound less erythema surrounding no bone exposed right heel with dry gangrene scab Results Labs 02/09/23 15:36 02/09/23 15:36 Labs: Abnormal lab results 02/08/23 02/08/23 02/08/23 Range/Units 19:07 19:12 22:03 WBC (4.8-10.8) X10*3/uL MCHC (31.0-36.0) g/dl Sodium (135-145) mmol/L Chloride (96-108) mmol/L Carbon Dioxide (22-29) mmol/L BUN (9-16) mg/dL POC Glucose 174 H (60-115) mg/dL Random Glucose (60-115) mg/dL Lactic Acid (0.5-2.0) mmol/L Lactic Acid F/U @ 2Hr 4.8 H* (0.5-2.0) mmol/L Lactic Acid F/U @ 4Hr 3.5 H* (0.5-2.0) mmol/L 02/09/23 02/09/23 02/09/23 Range/Units 01:14 11:36 15:35 WBC (4.8-10.8) X10*3/uL MCHC (31.0-36.0) g/dl Sodium (135-145) mmol/L Chloride (96-108) mmol/L Carbon Dioxide (22-29) mmol/L BUN (9-16) mg/dL POC Glucose 177 H 157 H (60-115) mg/dL Random Glucose (60-115) mg/dL Lactic Acid 3.0 H* (0.5-2.0) mmol/L Lactic Acid F/U @ 2Hr (0.5-2.0) mmol/L Lactic Acid F/U @ 4Hr (0.5-2.0) mmol/L 02/09/23 02/09/23 02/09/23 Range/Units 15:36 15:36 15:56 WBC 11.6 H (4.8-10.8) X10*3/uL MCHC 30.5 L (31.0-36.0) g/dl Sodium 146 H (135-145) mmol/L Chloride 114 H (96-108) mmol/L Carbon Dioxide 21 L (22-29) mmol/L BUN 17 H (9-16) mg/dL POC Glucose 40 L* (60-115) mg/dL Random Glucose 152 H (60-115) mg/dL Lactic Acid (0.5-2.0) mmol/L Lactic Acid F/U @ 2Hr (0.5-2.0) mmol/L Lactic Acid F/U @ 4Hr (0.5-2.0) mmol/L Short CBC 02/09/23 Range/Units 15:36 WBC 11.6 H (4.8-10.8) X10*3/uL Hgb 15.3 (14.0-18.0) g/dl Hct 50.2 (42.0-52.0) % Plt Count 331 D (160-400) X10*3/uL BMP 02/09/23 15:36 Sodium 146 H Potassium 4.3 Chloride 114 H Carbon Dioxide 21 L BUN 17 H Creatinine 0.73 Calcium 9.4 D All other labs normal. Assessment and Plan (1) Pressure injury of sacral region, unstageable: Status: Acute (2) Pressure injury of left heel, unstageable: Status: Acute Plan pt with dementia and pressure wounds need to offload and rotate - hard as pt is demented but active rolling around in bed pressure wound to sacral/coccyx with small central area unstageable - zinc oxide to this area the heel - try to offload on pillow - betadine paint daily Time Spent With Patient Time: Total time managing care of this patient today ____ minutes. Procedures Date of Service Date of Service: 02/10/23
[2023-02-09 19:19] LABS: ~Lactic Acid-LAB USE ONLY 1.8 mmol/L (0.5-2.0)
[2023-02-09 19:45] LABS: Glucose, Whole Blood 149 mg/dL (60-115)
[2023-02-09] MEDS: Melatonin 3 MG TABLET PO (21:06)
[2023-02-09] MEDS: Atorvastatin Calcium 40 MG TABLET PO (21:06)
[2023-02-09] MEDS: Tamsulosin HCL 0.4 MG CAPSULE PO (21:07)
[2023-02-10] MEDS: cefEPime HCl 2 GM in 0.9 % Sodium Chloride 50 ML IV ×3 (00:05→16:12)
[2023-02-10] MEDS: Dextrose 5 % and 0.45 % NaCl 1,000 ML 100 ML IVCONT ×2 (00:09→12:21)
[2023-02-10] MEDS: Metoprolol Tartrate 5 MG/5 ML VIAL 2.5 MG IVPUSH ×3 (01:13→12:20)
[2023-02-10] MEDS: 0.9 % Sodium Chloride Flush 3 ML SYRINGE IVFLUSH ×3 (01:14→16:19)
[2023-02-10 01:33] LABS: Glucose, Whole Blood 156 mg/dL (60-115)
[2023-02-10] MEDS: Insulin Lispro 100 UNIT/ML 3 ML VIAL SUBCUT ×2 (01:51→16:57)
[2023-02-10 03:31] VITALS: BP 152/65; PULSE 92; RESP 18; TEMP 36.3; O2SAT 96
[2023-02-10] MEDS: Levothyroxine Sodium 100 MCG/5 ML VIAL 12.5 MCG IVPUSH (06:32)
[2023-02-10 07:12] VITALS: BP 145/66; PULSE 83; RESP 20; TEMP 36.5; O2SAT 96
[2023-02-10 07:38] LABS: Glucose, Whole Blood 141 mg/dL (60-115)
[2023-02-10] MEDS: Finasteride 5 MG TABLET PO (07:42)
[2023-02-10] MEDS: Aspirin 81 MG TAB.CHEW PO (07:42)
[2023-02-10 11:31] VITALS: BP 138/89; PULSE 106; RESP 20; TEMP 36.1; O2SAT 91
[2023-02-10 11:57] LABS: Glucose, Whole Blood 155 mg/dL (60-115)
--- NOTE | 2023-02-10 13:02 | P.PNIM_ITS ---
Subjective Subjective Date of Service: 02/10/23 Interval History: being followed for hypernatremia and hypoxia, sitting comfortably in bed tolerating diet not responding to questions, following commands, noted to have and difficulty clearing secretions. Review of Systems unable to obtain due to mental status. Physical Exam Vital Signs: Vital Signs: Last Vital Signs Temp 97.0 F 02/10/23 11:31 Pulse 106 H 02/10/23 11:31 Resp 20 02/10/23 11:31 BP 138/89 02/10/23 11:31 Pulse Ox 91 L 02/10/23 11:31 O2 Del Method Room Air 02/10/23 11:31 O2 Flow Rate 2.5 02/10/23 07:12 Oxygen Flow Rate 15 02/08/23 14:46 BMI result Body Mass Index 20.7 Const: Other: General? awake seth rt, resting comfor tably in no acute distress. anicteri c sclera Neck? sup ple no JVD. CVS ta courtney regular rate r hythm, Respiratory lungs clear to au scultation, no res piratory distress, no wheeze, no rho nchi. Gastrointest inal abdomen soft, nontender, bowel sounds audible, no rigidity. Extremi ties no edema. Magen ro moving all 4 ex tremity, speech cl ear. Skin? multipl e dry scab both fe et, pressure wound left heel lateral malleolus, right heel wound with bl ack eschar with mi ld surrounding vj thema. psych impai red insight back:? macerated skin wi th small pressure wound right buttoc k/ surrounding vj thema, stage I thang cyx Objective Data Active Medications Acetaminophen (Acetaminophen Supp 650 Mg Supp.Rect) 650 mg [place] Q6H PRN PRN Reason: Pain, Mild (Pain Scale 1-3) Albuterol Sulfate (Albuterol Sulfate 90 Mcg 8 Gm Inhaler) 2 puff INHALE RBID [facility] Last Admin: 02/10/23 07:34 Dose: Not Given Documented By: CEASAR Non-Admin Reason: Patient Condition Contraindication Aspirin (Aspirin 81 Mg Tab.Chew) 81 mg PO DAILY [facility] Last Admin: 02/10/23 07:42 Dose: 81 mg Documented By: VIVIENNE Atorvastatin Calcium (Atorvastatin Calcium 40 Mg Tablet) 40 mg PO BEDTIME [facility] Last Admin: 02/09/23 21:06 Dose: 40 mg Documented By: CATY Collagenase (Collagenase Clostridium Hist. 30 Gm Tube) 1 appl TOPICAL DAILY [facility]; Protocol Last Admin: 02/10/23 12:00 Dose: Not Given Documented By: VIVIENNE Non-Admin Reason: Med Not Available Dextrose (Dextrose 50 % 25 Gm/50 Ml Syringe) 25 gm IVPUSH Q15M PRN; Protocol PRN Reason: per Hypoglycemia Standing Ord. Enoxaparin Sodium (Enoxaparin Sodium 40 Mg/0.4 Ml Syringe) 40 mg SUBCUT Q24H [facility] Last Admin: 02/09/23 17:42 Dose: 40 mg Documented By: VIVIENNE Finasteride (Finasteride 5 Mg Tablet) 5 mg PO DAILY [facility] Last Admin: 02/10/23 07:42 Dose: 5 mg Documented By: VIVIENNE Glucose (Glucose Gel 15 Gm Gel..Gram.) 15 gm PO Q15M PRN; Protocol PRN Reason: per Hypoglycemia Standing Ord. Cefepime HCl 2 gm/ Sodium (Chloride) 50 mls @ 100 mls/hr IV Q8H [facility] Last Infusion: 02/10/23 08:31 Dose: 0 mls/hr Documented By: VIVIENNE Dextrose/Sodium Chloride (D51/2ns) 1,000 mls @ 100 mls/hr IVCONT .Q10H [facility] Last Admin: 02/10/23 12:21 Dose: 100 mls/hr Documented By: VIVIENNE Insulin Human Lispro (Insulin Lispro 100 Unit/Ml 3 Ml Vial) 0 unit SUBCUT Q6H [facility]; Protocol Last Admin: 02/10/23 12:02 Dose: Not Given Documented By: VIVIENNE Non-Admin Reason: aware Comments: pt only eats 25% on meal- no coverage needed at time Levothyroxine Sodium (Levothyroxine Sodium 100 Mcg/5 Ml Vial) 12.5 mcg IVPUSH DAILY@0600 [facility] Last Admin: 02/10/23 06:32 Dose: 12.5 mcg Documented By: CATY Melatonin (Melatonin 3 Mg Tablet) 3 mg PO BEDTIME [facility] Last Admin: 02/09/23 21:06 Dose: 3 mg Documented By: CATY Metoprolol Tartrate (Metoprolol Tartrate 5 Mg/5 Ml Vial) 2.5 mg IVPUSH Q6H [facility] Last Admin: 02/10/23 12:20 Dose: 2.5 mg Documented By: VIVIENNE Morphine Sulfate (Morphine Sulfate 4 Mg/Ml Cartridge) 2 mg IVPUSH Q4H PRN; Protocol PRN Reason: Pain, Severe (Pain Scale 7-10) Pharmacy Consult (Consult Rx Vancomycin Dosing) 1 each MISCELLANE DAILY PRN PRN Reason: Consult order Sodium Biphosphate/Sodium Phosphate (Sodium Phosphate,Johnson-Dibasic 133 Ml Enema) 118 ml [place] DAILY PRN PRN Reason: Constipation Sodium Chloride (0.9 % Sodium Chloride Flush 3 Ml Syringe) 3 ml IVFLUSH QSHIFT [facility] Last Admin: 02/10/23 07:43 Dose: 3 ml Documented By: VIVIENNE Tamsulosin HCl (Tamsulosin Hcl 0.4 Mg Capsule) 0.4 mg PO BEDTIME [facility] Last Admin: 02/09/23 21:07 Dose: 0.4 mg Documented By: CATY Labs 02/09/23 15:36 02/09/23 15:36 Labs: Laboratory Results - last 24 hr 02/09/23 02/09/23 02/09/23 15:35 15:36 15:36 MCV 94.4 MCH 28.8 MCHC 30.5 L RDW 14.0 Plt Count 331 D MPV 11.2 Absolute Nucleated RBC 0.000 Nucleated RBC % (auto) 0.0 Anion Gap 15 Estim Creat Clear Calc 71.1 Estimated GFR > 60 POC Glucose Random Glucose 152 H Lactic Acid 3.0 H* Lactic Acid F/U @ 2Hr Calcium 9.4 D 02/09/23 02/09/23 02/09/23 15:56 16:41 18:54 MCV MCH MCHC RDW Plt Count MPV Absolute Nucleated RBC Nucleated RBC % (auto) Anion Gap Estim Creat Clear Calc Estimated GFR POC Glucose 40 L* 97 Random Glucose Lactic Acid Lactic Acid F/U @ 2Hr 1.8 Calcium 02/09/23 02/10/23 02/10/23 19:39 01:28 07:31 MCV MCH MCHC RDW Plt Count MPV Absolute Nucleated RBC Nucleated RBC % (auto) Anion Gap Estim Creat Clear Calc Estimated GFR POC Glucose 149 H 156 H 141 H Random Glucose Lactic Acid Lactic Acid F/U @ 2Hr Calcium 02/10/23 11:37 MCV MCH MCHC RDW Plt Count MPV Absolute Nucleated RBC Nucleated RBC % (auto) Anion Gap Estim Creat Clear Calc Estimated GFR POC Glucose 155 H Random Glucose Lactic Acid Lactic Acid F/U @ 2Hr Calcium Microbiology Microbiology Results: Microbiology 02/08/23 14:55 Blood Culture - Preliminary Blood - Venous No growth after 24 hours. 02/08/23 14:55 Blood Culture - Preliminary Blood - Venous No growth after 24 hours. Assessment and Plan (1) Acute hypernatremia: Status: Acute (2) Leukocytosis: Status: Acute (3) Metabolic encephalopathy: Status: Acute (4) BPH w urinary obs/LUTS: Status: Acute Plan 83yo M long-term resident of [facility] with vascular dementia, COPD, HTN, HLD, DM2, hypothyroidism, prior CVA presenting with AMS,? cyanosis and hypoxia, Recently? discharged from [facility] on January 30 after treated for hypovolemic hypernatremia, prerenal REINIER and acute metabolic encephalopathy and also finished course of antibiotics for pyelonephritis, On presentation,? patient restless, cyanotic with elevated sodium, lactic acidosis? normal renal function, tachycardic tachypneic # hypo-volemic hypernatremia -? likely? due to decreased by mouth intake,on IV D5-1/2 NS . sodium improved from 151-146, patient tolerating by mouth, will DC IV fluids follow BMP at a.m. # Sepsis? likely due to cellulitis ? ? tachycardic, tachypneic and fever resolved ? ? normal urinalysis and chest x-ray, pressures wounds both feet? and buttock with surrounding redness question cellulitis ? ? CT abdomen and pelvis on 01/20 showed normal? gallbladder, abdominal wall and kidneys, recent CT chest unremarkable ? ? on IV cefepime,day 2, WBC trending down, follow clinical course, blood cultures x2 negative , WBC trending down seen by General surgery dressing orders placed. ? ? #? Hypoxic respiratory failure/cyanosis ? ? stable oxygenation , normal troponin, clinically stable, no tachypnea, no respiratory distress, oxygenation 91 on room air, no cyanosis #? lactic acidosis - multifactoriall likely due to dehydration, metformin, use of updraft treatment, lactic acid normalized with IV fluid. # acute metabolic encephalopathy - awake alert, following commands likely at baseline ?? on pureed and nectar thick liquids with one-to-one feeds # HTN? tolerating by mouth will resume metoprolol home dose and DC IV metoprolol, continue to hold lisinopril # HLD resume statins # hypothyroidism on IV levothyroxine, will transition to by mouth # DM2 on? insulin sliding scale, diabetic diet stable blood sugars # COPD no acute exacerbation , continue inhalers. #? benign prostate hypertrophy continue finasteride and added Flomax 0.4 mg daily, voiding without issues # VTE ppx:? Lovenox # dispo: eventual return to [facility] #? code status full code patient need continued inpatient hospitalization due to electrolyte abnormality, acute metabolic encephalopathy and sepsis on iv abx. Time Spent With Patient Time: Total time managing care of this patient today ____ minutes. Quality Stroke Does the patient have a stroke diagnosis?: No VTE Prior VTE?: No VTE Risk Level:: Medical - moderate - high VTE Device Contraindication: Treatment Not Indicated VTE Drug Contraindication: N/A - Med Ordered
[2023-02-10 15:19] VITALS: BP 151/88; PULSE 111; RESP 19; TEMP 37; O2SAT 96
[2023-02-10 16:20] LABS: Glucose, Whole Blood 207 mg/dL (60-115)
[2023-02-10] MEDS: Enoxaparin Sodium 40 MG/0.4 ML SYRINGE SUBCUT (16:57)
[2023-02-10 19:07] VITALS: BP 167/74; PULSE 109; RESP 18; TEMP 36.2; O2SAT 98
[2023-02-10] MEDS: Atorvastatin Calcium 40 MG TABLET PO (21:14)
[2023-02-10] MEDS: Metoprolol Succinate ER 25 MG TAB.ER.24H 75 MG PO (21:14)
[2023-02-10] MEDS: Melatonin 3 MG TABLET PO (21:14)
[2023-02-10 23:47] VITALS: BP 154/68; PULSE 90; RESP 18; TEMP 36.6; O2SAT 97
[2023-02-11] MEDS: cefEPime HCl 2 GM in 0.9 % Sodium Chloride 50 ML IV ×2 (02:05→08:14)
[2023-02-11] MEDS: 0.9 % Sodium Chloride Flush 3 ML SYRINGE IVFLUSH ×2 (02:12→08:14)
[2023-02-11 02:17] LABS: Glucose, Whole Blood 128 mg/dL (60-115)
[2023-02-11 04:00] VITALS: BP 159/77; PULSE 106; RESP 20; TEMP 36.9; O2SAT 95
[2023-02-11] MEDS: Levothyroxine Sodium 25 MCG TABLET PO (06:37)
[2023-02-11 07:00] LABS: Glucose, Whole Blood 129 mg/dL (60-115)
[2023-02-11 07:22] VITALS: BP 158/67; PULSE 78; RESP 20; TEMP 36.1; O2SAT 96
[2023-02-11 07:42] LABS: Glucose, Whole Blood 117 mg/dL (60-115)
[2023-02-11] MEDS: Aspirin 81 MG TAB.CHEW PO (08:15)
[2023-02-11] MEDS: Finasteride 5 MG TABLET PO (08:15)
[2023-02-11 08:25] LABS: Anion Gap 11 (12-20); Blood Urea Nitrogen 12 mg/dL (9-16); Carbon Dioxide 26 mmol/L (22-29); Chloride 111 mmol/L (96-108); Creatinine Clr Calc Pharmacy 73.1; Estimated Glomerular Filt Rate > 60; Glucose Random 154 mg/dL (60-115); Potassium 4.2 mmol/L (3.3-5.1); Sodium 144 mmol/L (135-145)
[2023-02-11] MEDS: Collagenase Clostridium Hist. 30 GM TUBE 1 APPL TOPICAL (11:03)
[2023-02-11 11:08] VITALS: BP 162/85; PULSE 101; RESP 20; TEMP 36.2; O2SAT 98
[2023-02-11 11:35] LABS: Glucose, Whole Blood 225 mg/dL (60-115)
--- NOTE | 2023-02-11 11:45 | MHC.CM.PN ---
EMR reviewed and per MD rounds, pt is not medically cleared for D/C and is awaiting infectious disease MD consult. CM will continue to follow.
--- NOTE | 2023-02-11 12:19 | PM.DS ---
DS: Providers Provider Date of Service: 02/11/23 Date of admission: 02/08/23 17:51 Primary care physician: Taras Prescott DO Consults: 02/09/23 07:28 Consult to Infectious Diseases Routine Consulting Provider: Paige Kaiser Reason for consultation: SIRS/cellulitis Has provider been notified: No 02/09/23 10:18 Consult to Wound Care Routine Consulting Provider: Natalie Franklin Reason for consultation: b/l buttock /rt heel and left ankle pressure wound DS: Diagnosis Discharge Diagnosis (1) Pressure injury of sacral region, unstageable: Status: Acute (2) Pressure injury of left heel, unstageable: Status: Acute DS: Summary Hospital Course Hospital Course: history of presenting illness: Date of Service: 02/08/23 Chief Complaint: ? facial and acro cyanosis 83-year-old gentleman resident of [facility] with past medical history significant for vascular dementia, hypertension, hyperlipidemia, insulin-dependent diabetes mellitus type 2, hypothyroidism, history of COPD, history of CVA patient was recently discharged from [facility] on 01/30/2023 after being treated for hypernatremia, pre renal REINIER, acute metabolic encephalopathy, patient sent to [facility] today since he was noted to be hypoxic and had cyanosis of lips as well as peripheries, patient is unable to provide any meaningful history no further detail? history? provided by nursing facility, on arrival to the emergency room patient was noted to be restless, altered, and cyanotic on non-rebreather 15 L, his oxygenation was 100%, his rectal temp was 100.4 degrees, pulse 129, respiratory 35, UA unremarkable, chest x-ray showed no acute abnormality, ?sodium 151, chloride 110, BUN 22 normal creatinine, blood sugars 124, lactic acid 4.2, albumin 3.3, BNP 34, EKG showed sinus tachycardia ventricular rate 127 , no acute ST changes noted, troponin pending, ?patient is awake, unable to provide meaningful history, patient treated in the emergency room with IV Solu-Medrol 125 and IV fluids, will admit patient to [facility] due to altered mental status, hypernatremia and SIRS with no acute source of infection, question due to multiple pressure ulcers with surrounding erythema/ cellulitis. hospital course: 83yo M long-term resident of [facility] with vascular dementia, COPD, HTN, HLD, DM2, hypothyroidism, prior CVA presenting with AMS,? cyanosis and hypoxia, Recently? discharged from [facility] on January 30 after treated for hypovolemic hypernatremia, prerenal REINIER and acute metabolic encephalopathy and also finished course of antibiotics for pyelonephritis, On presentation,? patient restless, cyanotic with elevated sodium, lactic acidosis? normal renal function, tachycardic tachypneic # hypo-volemic hypernatremia? -? likely?due to decreased by mouth intake, treated with IV D5W sodium improved recommend to push by mouth fluids and monitor BMP Q weekly. # Sepsis? likely due to cellulitis- all symptoms of tachycardic, tachypneic? and fever resolved, normal urinalysis and chest x-ray, pressures wounds both feet? and buttock with surrounding redness question cellulitis ? ? CT abdomen and pelvis on 01/20 showed normal? gallbladder, abdominal wall and kidneys, recent CT chest unremarkable, patient treated with IV cefepime, blood cultures? x2 negative , WBC improved, seen by General surgery dressing to both pressure ulcer ordered since patient is hemodynamically stable he is being discharged home on no further antibiotics. Recommend frequent position change. ? ? #? Hypoxic respiratory failure/cyanosis ? ? stable oxygenation , normal troponin, clinically stable, no tachypnea, no respiratory distress, oxygenation? is stable on room air,? likely chronic discoloration of all fingertips. #? lactic acidosis - multifactoriall likely due to dehydration, metformin, use of updraft treatment, Lactic acid normalized with IV fluids,? recommend to discontinue metformin. # acute metabolic encephalopathy resolved likely due to hypernatremia,now awake alert,? following commands likely at baseline,? on pureed and nectar thick liquids with one-to-one feeds # HTN?? continue home medications # HLD continue statins # hypothyroidism on levothyroxine # DM2? on? insulin sliding scale, diabetic diet? stable blood sugars # COPD no acute exacerbation , continue inhalers. #? benign prostate hypertrophy continue finasteride? and? added Flomax 0.4 mg daily,? voiding without issues. Time Spent with Patient Time attestation: Total time managing care of this patient today ____ minutes. Discharge coordination time: Greater than 30 minutes Quality: Safe Use of Opioids Does Pt have an Active Cancer Diagnosis on the Problem List?: No Quality: Stroke Does the patient have a stroke diagnosis?: No Physical Exam Vital Signs: Vital Signs: Last Vital Signs Temp 97.1 F 02/11/23 11:08 Pulse 101 H 02/11/23 11:08 Resp 20 02/11/23 11:08 BP 162/85 H 02/11/23 11:08 Pulse Ox 98 02/11/23 11:08 O2 Del Method Room Air 02/11/23 11:08 O2 Flow Rate 2.5 02/10/23 07:12 Oxygen Flow Rate 15 02/08/23 14:46 BMI result Body Mass Index 20.7 Const: Other: General? awake alert, resting comfortably in no acutedistress. anicteric sclera Neck? supple no JVD. CVS tachy regular rate rhythm, Respiratory?lungs clear to auscultation, no respiratory distress,?no wheeze, no rho nchi.Gastrointestinal abdomen soft,?nontender, bowelsounds audible, no?rigidity. Extremities no edema. Neuro moving all 4 extremity, speech clear. Skin? multiple dry scab both feet, pressure wound?left heel lateral?malleolus, rightheel wound with black eschar with mild surrounding erythema. psych impaired insight back:??macerated skin with small pressurewound right buttock/ surrounding erythema, stage I coccyx DS: Data Data Completed and Pending Labs on day of discharge: Laboratory Results - last 24 hr 02/10/23 02/11/23 02/11/23 16:10 02:08 06:41 Sodium Potassium Chloride Carbon Dioxide Anion Gap BUN Creatinine Estim Creat Clear Calc Estimated GFR POC Glucose 207 H 128 H 129 H Random Glucose Calcium 02/11/23 02/11/23 02/11/23 07:27 07:54 11:11 Sodium 144 Potassium 4.2 Chloride 111 H Carbon Dioxide 26 Anion Gap 11 L BUN 12 Creatinine 0.71 Estim Creat Clear Calc 73.1 Estimated GFR > 60 POC Glucose 117 H 225 H Random Glucose 154 H Calcium 9.0 Preliminary micro results at discharge 02/08/23 14:55 Blood Culture - Preliminary Blood - Venous No growth after 48 hours. 02/08/23 14:55 Blood Culture - Preliminary Blood - Venous No growth after 48 hours. Discharge Plan Discharge Anticipated Discharge Date/Time: 02/11/23 12:11 Patient Disposition: Xfer SNF Discharge Diagnosis: hypovolemic hypernatremia sepsis due to cellulitis hypoxic respiratory failure acute metabolic encephalopathy Referrals: Taras Prescott DO [Primary Care Provider] - 1 Week Discharge Medications: New tamsulosin 0.4 mg Capsule 0.4 mg PO BEDTIME Qty: 30 0RF Continued atorvastatin [Lipitor] 40 mg Tablet 40 mg PO BEDTIME melatonin 3 mg Tablet 3 mg PO BEDTIME insulin aspart U-100 100 unit/mL Solution 1 sliding scale dose SUBCUT USEASDIRECTD Rx Instructions: 0-150=0 units, 151-200=2 units, 201-250=4 units, 251-300=6 units, 301-350=8 units, 351-400=10 units, 401-999 call lisinopril 10 mg Tablet 10 mg PO DAILY docusate sodium [Colace] 100 mg Capsule 200 mg PO DAILY aspirin 81 mg Tablet,Chewable 81 mg PO DAILY albuterol sulfate [ProAir HFA] 90 mcg/actuation Hfa Aerosol Inhaler 2 puff INHALATION BID senna 8.6 mg Capsule 8.6 mg PO BEDTIME sennosides [senna] 8.6 mg Tablet 8.6 mg PO DAILY PRN (Reason: Constipation) acetaminophen [Tylenol] 325 mg Tablet 650 mg PO Q6H PRN (Reason: Fever Or Pain) Rx Instructions: DO NOT EXCEED 3 G/ 24 HRS levothyroxine 25 mcg Tablet 25 mcg PO DAILY@0600 bisacodyl 10 mg Suppository 10 mg IA DAILY PRN (Reason: Constipation) Fleet Enema 19-7 gram/118 mL Enema 118 ml IA DAILY PRN (Reason: Constipation) metoprolol succinate 25 mg tablet extended release 24 hr 75 mg PO BEDTIME alum-mag hydroxide-simeth 200-200-20 mg/5 mL Suspension 5 ml PO Q4H PRN (Reason: Heartburn) Rx Instructions: administer between meals and at bedtime Artificial Tears([id number]) 1-0.2-0.2 % Drops 1 drp OPHTHALMIC (EYE) TID PRN (Reason: Dry Eyes) Rx Instructions: instill 1 drop in both eyes Farxiga 10 mg tablet 10 mg PO DAILY Trulicity 1.5 mg/0.5 mL pen injector 1.5 mg subcut WE@0900 oxycodone-acetaminophen 5-325 mg tablet 1 tab PO Q4H PRN (Reason: Moderate Pain (Scale Score 5-6)) Santyl 250 unit/gram Ointment 1 appl TOPICAL DAILY Rx Instructions: apply to left ankle. Santyl 250 unit/gram ointment 1 appl topical DAILY PRN (Reason: Wound Care) Rx Instructions: use if other dressing falls off finasteride 5 mg tablet 5 mg PO DAILY 90 Days Qty: 90 1RF Discontinued metformin 1,000 mg Tablet 1,000 mg PO BID Discharge Orders: Discharge Order (Routine); Ordered 02/11/23 Ordered By: Daryn Neely Diet: Diabetic diet Activity on Discharge: As tolerated Stand Alone Forms: Patient Portal Discharge page Care Plan Goals: sacral and coccyx small central unstageable area apply zinc oxide,apply Betadine paint to heel and offload on pillow stable oxygenation minimize narcotics frequent position change push by mouth fluids, close monitoring of by mouth intake metformin discontinued due to lactic acidosis Health Concerns: vascular dementia/ recurrent hypernatremia/ insulin-dependent diabetes mellitus Plan of Treatment: follow-up with primary care physician, follow BMP Q weekly Assessment: as above
--- NOTE | 2023-02-11 13:12 | MHC.CM.PN ---
has medically cleared pt for D/C back to [facility], transport via BLS/[facility] at 4pm. [facility] facility updated via [facility], and pts guardian Litzy updated.
[2023-02-11] MEDS: Insulin Lispro 100 UNIT/ML 3 ML VIAL SUBCUT (13:33)
[2023-02-11 15:30] VITALS: BP 120/85; PULSE 68; RESP 18; TEMP 36.5; O2SAT 96
--- NOTE | 2023-02-11 16:08 | W.PM.IDCN ---
History of Present Illness Data of Consult Service Date: 02/11/23 Requesting physician: Daryn Neely Primary Care Provider: DO FARAZ Rivera Reason for consult: perez glabrata He presents with weakness and fatigue. He had some redness lower extremities. He has Galaviz in place. Review of Systems Review of Systems: Yes Unobtainable due to mental condition PMFSH Past Medical History Medical History Cerebral infarction Cognitive communication deficit COPD (chronic obstructive pulmonary disease) Depressive disorder Diabetes Dysphagia Hearing loss Hemiplegia HTN (hypertension) Hyperlipemia Vascular dementia Family History Family history: reviewed and not pertinent Social History Social History Household Members: Unknown / Unable to assess Housing: Unknown / Unable to assess Unable to assess alcohol history related to: Refusing to respond Alcohol intake: unknown Patient Tobacco Use Status: Tobacco use Unknown Use of substances other than those prescribed or required for medical reasons: Refusing to respond Currently Displaying Signs/Symptoms of Drug Intoxication Withdrawal: No Advance Directives: No Advance Directives Information Provided: No Recently lost weight without trying: Unsure Nutrition Risks: Dental problems Poor oral hygiene: No service: No Current occupational status: disabled Meds Allergies Allergy/AdvReac Type Severity Reaction Status Date / Time No Known Allergies Allergy Intermediate UNKNOWN Verified 01/22/23 12:01 [NO KNOWN ALLERGIES] Active Medications: Current Medications Acetaminophen (Acetaminophen Supp 650 Mg Supp.Rect) 650 mg NV Q6H PRN PRN Reason: Pain, Mild (Pain Scale 1-3) Albuterol Sulfate (Albuterol Sulfate 90 Mcg 8 Gm Inhaler) 2 puff INHALE RBID [facility] Last Admin: 02/11/23 07:18 Dose: Not Given Aspirin (Aspirin 81 Mg Tab.Chew) 81 mg PO DAILY MATTY Last Admin: 02/11/23 08:15 Dose: 81 mg Atorvastatin Calcium (Atorvastatin Calcium 40 Mg Tablet) 40 mg PO BEDTIME MATTY Last Admin: 02/10/23 21:14 Dose: 40 mg Collagenase (Collagenase Clostridium Hist. 30 Gm Tube) 1 appl TOPICAL DAILY MATTY; Protocol Last Admin: 02/11/23 11:03 Dose: 1 appl Dextrose (Dextrose 50 % 25 Gm/50 Ml Syringe) 25 gm IVPUSH Q15M PRN; Protocol PRN Reason: per Hypoglycemia Standing Ord. Enoxaparin Sodium (Enoxaparin Sodium 40 Mg/0.4 Ml Syringe) 40 mg SUBCUT Q24H [facility] Last Admin: 02/10/23 16:57 Dose: 40 mg Finasteride (Finasteride 5 Mg Tablet) 5 mg PO DAILY [facility] Last Admin: 02/11/23 08:15 Dose: 5 mg Glucose (Glucose Gel 15 Gm Gel..Gram.) 15 gm PO Q15M PRN; Protocol PRN Reason: per Hypoglycemia Standing Ord. Cefepime HCl 2 gm/ Sodium (Chloride) 50 mls @ 100 mls/hr IV Q8H [facility] Last Admin: 02/11/23 13:33 Dose: Not Given Insulin Human Lispro (Insulin Lispro 100 Unit/Ml 3 Ml Vial) 0 unit SUBCUT Q6H [facility]; Protocol Last Admin: 02/11/23 13:33 Dose: 4 unit Levothyroxine Sodium (Levothyroxine Sodium 25 Mcg Tablet) 25 mcg PO DAILY@0600 [facility] Last Admin: 02/11/23 06:37 Dose: 25 mcg Melatonin (Melatonin 3 Mg Tablet) 3 mg PO BEDTIME [facility] Last Admin: 02/10/23 21:14 Dose: 3 mg Metoprolol Succinate (Metoprolol Succinate Er 25 Mg Tab.Er.24h) 75 mg PO BEDTIME [facility]; Protocol Last Admin: 02/10/23 21:14 Dose: 75 mg Morphine Sulfate (Morphine Sulfate 4 Mg/Ml Cartridge) 2 mg IVPUSH Q4H PRN; Protocol PRN Reason: Pain, Severe (Pain Scale 7-10) Pharmacy Consult (Consult Rx Vancomycin Dosing) 1 each MISCELLANE DAILY PRN PRN Reason: Consult order Sodium Biphosphate/Sodium Phosphate (Sodium Phosphate,Schley-Dibasic 133 Ml Enema) 118 ml NV DAILY PRN PRN Reason: Constipation Sodium Chloride (0.9 % Sodium Chloride Flush 3 Ml Syringe) 3 ml IVFLUSH QSHIFT [facility] Last Admin: 02/11/23 08:14 Dose: 3 ml Tamsulosin HCl (Tamsulosin Hcl 0.4 Mg Capsule) 0.4 mg PO BEDTIME [facility] Last Admin: 02/10/23 21:18 Dose: Not Given Home Medications Medication Instructions Recorded Confirmed Last Taken Type albuterol sulfate 90 mcg/actuation 2 puff inhalation BID 08/13/20 02/08/23 01/26/23 06:00 History aerosol inhaler (ProAir HFA) aspirin 81 mg chewable tablet 81 mg PO DAILY 08/13/20 02/08/23 01/26/23 History atorvastatin 40 mg tablet (Lipitor) 40 mg PO BEDTIME 08/13/20 02/08/23 01/25/23 History docusate sodium 100 mg capsule 200 mg PO DAILY 08/13/20 02/08/23 01/26/23 History (Colace) insulin aspart U-100 100 unit/mL 1 sliding scale dose subcut 08/13/20 02/08/23 01/25/23 History subcutaneous solution USEASDIRECTD lisinopril 10 mg tablet 10 mg PO DAILY 08/13/20 02/08/23 01/26/23 History melatonin 3 mg tablet 3 mg PO BEDTIME 08/13/20 02/08/23 01/25/23 History sennosides 8.6 mg capsule (senna) 8.6 mg PO BEDTIME 08/13/20 02/08/23 01/25/23 History acetaminophen 325 mg tablet 650 mg PO Q6H PRN Fever Or Pain 01/26/23 02/08/23 Unknown History (Tylenol) aluminum-mag hydroxide-simethicone 5 ml PO Q4H PRN Heartburn 01/26/23 02/08/23 Unknown History 200 mg-200 mg-20 mg/5 mL oral susp bisacodyl 10 mg rectal suppository 10 mg NV DAILY PRN Constipation 01/26/23 02/08/23 Unknown History dapagliflozin propanediol 10 mg 10 mg PO DAILY 01/26/23 02/08/23 01/26/23 History tablet (Farxiga) dulaglutide 1.5 mg/0.5 mL 1.5 mg subcut WE@0900 01/26/23 02/08/23 Unknown History subcutaneous pen injector (Trulicity) levothyroxine 25 mcg tablet 25 mcg PO DAILY@0601/26/23 02/08/23 01/26/23 History metoprolol succinate 25 mg 75 mg PO BEDTIME 01/26/23 02/08/23 01/25/23 History tablet,extended release 24 hr peg [id number] 1 1 drp ophthalmic (eye) TID PRN Dry 01/26/23 02/08/23 Unknown History %-0.2 %-0.2 % eye drops Eyes (Artificial Tears ([id number])) sennosides 8.6 mg tablet (senna) 8.6 mg PO DAILY PRN Constipation 01/26/23 02/08/23 Unknown History sodium phosphates 19 gram-7 118 ml NV DAILY PRN Constipation 01/26/23 02/08/23 Unknown History gram/118 mL enema (Fleet Enema) collagenase clostridium histo. 250 1 appl topical DAILY 02/08/23 02/08/23 Unknown History unit/gram topical ointment (Santyl) collagenase clostridium histo. 250 1 appl topical DAILY PRN Wound Care 02/08/23 02/08/23 Unknown History unit/gram topical ointment (Santyl) oxycodone-acetaminophen 5 mg-325 1 tab PO Q4H PRN Moderate Pain 02/08/23 02/08/23 Unknown History mg tablet (Scale Score 5-6) Physical Exam Vital Signs: Vital Signs: Last Vital Signs Temp 97.7 F 02/11/23 15:30 Pulse 68 02/11/23 15:30 Resp 18 02/11/23 15:30 BP 120/85 02/11/23 15:30 Pulse Ox 96 02/11/23 15:30 O2 Del Method Room Air 02/11/23 15:30 O2 Flow Rate 2.5 02/10/23 07:12 Oxygen Flow Rate 15 02/08/23 14:46 BMI result Body Mass Index 20.7 Const: General: cooperative HEENT: Head: Yes normal to inspection Face and sinus: Yes normal facial exam Mouth: Normal oral and palatal mucosa present Teeth and gingiva: dentition normal Eyes: General: appearance normal, both eyes and all related structures Pupils: Equal, round and reactive pupils present Resp: Effort & Inspection: normal respiratory effort Cardio: Rate: regular rate Rhythm: regular rhythm GI: Palpation (GI): Soft to palpation and nontender : General: Yes no CVA tenderness Back/Spine/Pelvis: Back: no CVA tenderness Skin: General skin exam: no rashes or lesions noted Neuro: General: moves all extremities Cranial nerves: Yes Equal, round and reactive pupils present Extrem: Other: mild leg eschars,no cellulitis of note General: Yes normal to inspection Psych: Appearance: grossly normal Results Labs 02/09/23 15:36 02/11/23 07:54 Labs: BMP 02/11/23 07:54 Sodium 144 Potassium 4.2 Chloride 111 H Carbon Dioxide 26 BUN 12 Creatinine 0.71 Calcium 9.0 Microbiology Microbiology Results: Microbiology 02/08/23 14:55 Blood - Venous Blood Culture - Preliminary No growth after 48 hours. 02/08/23 14:55 Blood - Venous Blood Culture - Preliminary No growth after 48 hours. Assessment and Plan (1) Metabolic encephalopathy: Status: Acute He has no bactermia or obvious urine infection. He has no cellulitis at this time Plan Stop Cefepime No antifungal for perez glabrata. Time Spent With Patient Time: Total time managing care of this patient today ____ minutes.
== END 2023-02-11 16:40 | disposition skilled nursing facility (03) | DRG 871 ==
LOC: HO.ED 15:49 → HO.EDOVER 18:03 → HO.IMC 19:29
PROVIDERS: Admitting Provider Hospitalist; Emergency Provider Emergency Medicine; PCP Hospitalist; Visit Provider Hospitalist
DX: A41.9 Sepsis, unspecified organism (principal); G93.41 Metabolic encephalopathy; E87.0 Hyperosmolality and hypernatremia; F01.511 Vascular dementia, unspecified severity, with agitation; L03.115 Cellulitis of right lower limb; L03.116 Cellulitis of left lower limb; L03.317 Cellulitis of buttock; E87.20 Acidosis, unspecified; N13.8 Other obstructive and reflux uropathy; E86.0 Dehydration; E78.5 Hyperlipidemia, unspecified; E86.1 Hypovolemia; E03.9 Hypothyroidism, unspecified; N40.1 Benign prostatic hyperplasia with lower urinary tract symptoms; J44.9 Chronic obstructive pulmonary disease, unspecified; L89.629 Pressure ulcer of left heel, unspecified stage; L89.151 Pressure ulcer of sacral region, stage 1; L89.319 Pressure ulcer of right buttock, unspecified stage; Z79.4 Long term (current) use of insulin; Z79.82 Long term (current) use of aspirin; Z79.890 Hormone replacement therapy; Z79.899 Other long term (current) drug therapy
CPT/HCPCS: 36415; 71045; 80048; 80053; 82803; 82947; 83605; 83880; 84484; 85025; 85027; 85610; 87040; 93005; 99285; J0692; J1650; J2930; J3370

== ENCOUNTER 2023-03-15 09:50 | Inpatient (IN) | payer MEDICARE, MEDICAID, SELFPAY ==
[2023-03-15] VITALS (15 sets, daily range): BP systolic 0–176; BP diastolic 0–155; PULSE 0–150; RESP 25–38; TEMP 35–39.1; O2SAT 88–100; BMI 19.4; BMI 20.4
--- NOTE | ~2023-03-15 | CT_ITS ---
EXAMINATION: CT CHEST WITHOUT CONTRAST CLINICAL INFORMATION: Hypoxia COMPARISON: Previous chest x-ray from earlier the same day and chest CT December 2022 TECHNIQUE: Multidetector volumetric CT imaging of the chest was done. Axial MIP volume rendering provided. Sagittal and coronal reformatted images were obtained. This CT examination was performed using dose optimization techniques as appropriate, variously including the following: *Automated exposure control *Adjustment of mA and/or kV according to patient size (this includes techniques or standardized protocols for targeted exams where dose is matched to indication/reason for exam; i.e. extremities or head) *Use of iterative reconstruction technique DLP: 268 mGy-cm FINDINGS: HIGH PRESSURE FIRER: LUNGS: Tracheostomy with tip 5 cm above the eduar Right lower lobe consolidation with air bronchograms suggestive of pneumonia. Mild left lower lobe bronchial wall thickening, increased peribronchial attenuation and peribronchial small nodules suggestive of airways disease. Similar changes seen in the posterior segment of the right upper lobe. No endobronchial or endotracheal lesion. MEDIASTINUM: Normal heart size. Small pericardial effusion. Small mediastinal lymph nodes. No enlarged lymph nodes. Normal caliber thoracic aorta. Aortic valve calcification. CORONARY ARTERY CALCIFICATION: Moderate PLEURA: Trace right pleural effusion. No left pleural effusion. AXILLA: No lymphadenopathy. UPPER ABDOMEN: Unremarkable. OSSEOUS STRUCTURES: Degenerative changes of the spine and shoulders. CT/CT chest wo IV con IMPRESSION: Right lower lobe pneumonia. Fleischner guidelines were followed.
--- NOTE | ~2023-03-15 | CT_ITS ---
EXAMINATION: CT HEAD WITHOUT CONTRAST CLINICAL INFORMATION: Encephalopathy COMPARISON: 04/01/2022 TECHNIQUE: Contiguous axial imaging was performed from the skull base to vertex without intravenous contrast. This CT examination was performed using dose optimization techniques as appropriate, variously including the following: * Automated exposure control * Adjustment of mA and/or kV according to patient size (this includes techniques or standardized protocols for targeted exams where dose is matched to indication/reason for exam; i.e. extremities or head) Use of iterative reconstruction technique DLP: 1773 mGy-cm in conjunction with the chest, abdomen, pelvis CT FINDINGS: There is no evidence of acute intracranial hemorrhage or territorial infarction. No abnormal mass effect or midline shift is seen. Small chronic left frontal lobe infarct. Benson to white matter differentiation is otherwise well preserved. No extra-axial fluid collections are identified. No hydrocephalus. Proportional prominence of the ventricles and sulcal spaces is consistent with moderate volume loss. Patchy periventricular and deep white matter hypoattenuation is consistent with mild small vessel ischemic changes. The osseous structures and soft tissues are normal. The mastoid air cells and visualized portions of the paranasal sinuses are well aerated. CT/CT head/brain wo IV con IMPRESSION: No acute intracranial pathology. Volume loss with small vessel ischemic change.
--- NOTE | ~2023-03-15 | CT_ITS ---
EXAMINATION: CT ABDOMEN AND PELVIS WITHOUT CONTRAST CLINICAL INFORMATION: Question small bowel obstruction COMPARISON: Previous CT of the abdomen and pelvis December 2022 TECHNIQUE: Multidetector volumetric imaging was performed from the superior aspect of the liver through the pubic symphysis. Sagittal and coronal reformatted images were obtained on the technologist's workstation. This CT examination was performed using dose optimization techniques as appropriate, variously including the following: *Automated exposure control *Adjustment of mA and/or kV according to patient size (this includes techniques or standardized protocols for targeted exams where dose is matched to indication/reason for exam; i.e. extremities or head) *Use of iterative reconstruction technique DLP: 542 mGy-cm FINDINGS: LUNG BASES: New right lower lobe pneumonia LIVER, GALLBLADDER, AND BILIARY TREE: The liver is normal in size, shape, and attenuation. No focal hepatic lesion or biliary ductal dilatation is present. The gallbladder is upper normal in size. No gallstone seen. PANCREAS: Atrophic changes of the pancreas. SPLEEN: Unremarkable. ADRENAL GLANDS: Fullness of the left adrenal gland. This is similar to previous exam. The right adrenal gland is normal. KIDNEYS AND URETERS: The kidneys are normal in size, shape, and attenuation. No hydronephrosis, hydroureter, or calculi seen. No perinephric stranding. I lateral renal vascular calcification. BLADDER: Only catheter in the bladder. The bladder is empty. There may be bladder wall thickening. GASTROINTESTINAL TRACT: Diverticulosis of the colon. No evidence of diverticulitis. Large amount of stool in the colon. The colon is slightly distended suggestive of mild constipation. No transition zone to suggest mechanical obstruction. Small and large bowel is otherwise normal. No evidence of small bowel obstruction. The appendix is normal. ABDOMINAL WALL: No significant hernia is appreciated. LYMPH NODES: Normal. VASCULAR: Atherosclerotic disease. No aneurysm. PELVIC VISCERA: The prostate gland is enlarged. OSSEOUS STRUCTURES: Degenerative changes of the spine and hip joints there is soft tissue calcification in the left iliopsoas tendon. CT/CT abdomen pelvis wo IV con IMPRESSION: Right lower lobe pneumonia. Diverticulosis. No evidence of diverticulitis. Constipation and mild dilatation of the colon or obstipation. No transition zone to suggest mechanical obstruction. Atherosclerotic disease. Galaviz catheter in the bladder. Bladder wall may be slightly thickened. The prostate gland is enlarged. Fleischner guidelines were followed.
--- NOTE | ~2023-03-15 | XR_ITS ---
EXAMINATION: XR CHEST CLINICAL INFORMATION: Post intubation COMPARISON: Previous chest x-ray most recent 02/08/2023 TECHNIQUE: Frontal view of the chest was obtained. FINDINGS: The cardiac and mediastinal contours are stable. There is an endotracheal tube with tip 8 .4 centimeters above the eduar. There is a nasogastric tube with tip projecting over the distal thoracic esophagus and should be advanced into the stomach. The lungs are well-inflated. The lungs are clear. No pleural effusion or pneumothorax. Degenerative changes of the spine and shoulders. No fracture. XR/XR chest 1V IMPRESSION: Endotracheal tube 8.4 cm above the eduar. Nasogastric tube tip projects over the distal thoracic esophagus and should be advanced into the stomach. Well-inflated lungs.
--- NOTE | 2023-03-15 10:17 | ED.GENADULT ---
HPI - General Adult General Chief complaint: Altered Mental Status Stated complaint: From SNF, AMS, low BP (87/64) per EMS Time Seen by Provider: 03/15/23 10:08 Source: EMS Mode of arrival: EMS Limitations: altered mental status History of Present Illness HPI narrative: This is 83 years old male coming from a [facility] care [facility] with altered mental status. The patient is unable to give any history. Patient has history of COPD, type 2 diabetes, CVA, pressors ulcer. He is been more lethargic in the correction Onset (ago): day(s) (1) Radiation: non-radiation Severity: moderate Pain Consistency: constant Relieving factors: none Exacerbating factors: none Related Data Home Medications Medication Instructions Recorded Confirmed albuterol sulfate 90 mcg/actuation 2 puff inhalation BID 08/13/20 03/15/23 aerosol inhaler (ProAir HFA) aspirin 81 mg chewable tablet 81 mg PO DAILY 08/13/20 03/15/23 atorvastatin 40 mg tablet (Lipitor) 40 mg PO BEDTIME 08/13/20 03/15/23 docusate sodium 100 mg capsule 200 mg PO DAILY 08/13/20 03/15/23 (Colace) insulin aspart U-100 100 unit/mL 1 sliding scale dose subcut 08/13/20 03/15/23 subcutaneous solution USEASDIRECTD lisinopril 10 mg tablet 10 mg PO DAILY 08/13/20 03/15/23 melatonin 3 mg tablet 3 mg PO BEDTIME 08/13/20 03/15/23 sennosides 8.6 mg capsule (senna) 8.6 mg PO BEDTIME 08/13/20 03/15/23 acetaminophen 325 mg tablet 650 mg PO Q6H PRN Fever Or Pain 01/26/23 03/15/23 (Tylenol) aluminum-mag hydroxide-simethicone 5 ml PO Q4H PRN Heartburn 01/26/23 03/15/23 200 mg-200 mg-20 mg/5 mL oral susp bisacodyl 10 mg rectal suppository 10 mg ID DAILY PRN Constipation 01/26/23 03/15/23 dapagliflozin propanediol 10 mg 10 mg PO DAILY 01/26/23 03/15/23 tablet (Farxiga) dulaglutide 1.5 mg/0.5 mL 1.5 mg subcut WE@0900 01/26/23 03/15/23 subcutaneous pen injector (Trulicity) levothyroxine 25 mcg tablet 25 mcg PO DAILY@0600 01/26/23 03/15/23 metoprolol succinate 25 mg 75 mg PO BEDTIME 01/26/23 03/15/23 tablet,extended release 24 hr peg [id number] 1 1 drp ophthalmic (eye) TID PRN Dry 01/26/23 03/15/23 %-0.2 %-0.2 % eye drops Eyes (Artificial Tears ([id number])) sennosides 8.6 mg tablet (senna) 8.6 mg PO DAILY PRN Constipation 01/26/23 03/15/23 sodium phosphates 19 gram-7 118 ml ID DAILY PRN Constipation 01/26/23 03/15/23 gram/118 mL enema (Fleet Enema) collagenase clostridium histo. 250 1 appl topical DAILY 02/08/23 03/15/23 unit/gram topical ointment (Santyl) collagenase clostridium histo. 250 1 appl topical DAILY PRN Wound Care 02/08/23 03/15/23 unit/gram topical ointment (Santyl) oxycodone-acetaminophen 5 mg-325 1 tab PO Q6H PRN Moderate Pain 02/08/23 03/15/23 mg tablet (Scale Score 5-6) Calamine Skin Protectant 1 appl topical BID 03/15/23 03/15/23 Dextrose Solution 5% See Rx Instructions .Route .COMPLEX 03/15/23 03/15/23 fentanyl 25 mcg/hr transdermal 1 patch transdermal Q72H 03/15/23 03/15/23 patch Previous Rx's Medication Instructions Recorded finasteride 5 mg tablet 5 mg PO DAILY 90 days #90 tabs 01/22/23 tamsulosin 0.4 mg capsule 0.4 mg PO BEDTIME #30 caps 02/11/23 Allergies Allergy/AdvReac Type Severity Reaction Status Date / Time No Known Allergies Allergy Intermediate UNKNOWN Verified 01/22/23 12:01 [NO KNOWN ALLERGIES] Review of Systems Review of Systems: Yes Unobtainable due to mental condition PMFSH Past Medical History Medical History BPH w urinary obs/LUTS Cerebral infarction Cognitive communication deficit COPD (chronic obstructive pulmonary disease) Depressive disorder Diabetes Dysphagia Hearing loss Hemiplegia HTN (hypertension) Hyperlipemia Vascular dementia Social History Social History Household Members: Unknown / Unable to assess Housing: Unknown / Unable to assess Unable to assess alcohol history related to: Refusing to respond Alcohol intake: unknown Patient Tobacco Use Status: Tobacco use Unknown Advance Directives: No service: No Current occupational status: disabled Physical Exam ED Vital Signs: Vital Signs - 24 hr 03/15/23 10:07 03/15/23 10:20 03/15/23 10:24 Temperature 102.3 F H Pulse Rate 138 H Respiratory Rate 25 H 35 H Blood Pressure 107/73 98/69 Fraction of Inspired Oxygen 03/15/23 11:26 03/15/23 11:08 03/15/23 11:23 Temperature Pulse Rate Respiratory Rate Blood Pressure 156/64 H 176/110 H Fraction of Inspired Oxygen 100 BMI result Body Mass Index 19.4 Const Other: He is very lethargic General: lethargic Nutritional Appearance: average body habitus Orientation/consciousness: lethargic HENCO Head: Yes normal to inspection Face and sinus: Yes normal facial exam Mouth: Normal oral and palatal mucosa present Throat: Yes posterior oropharynx normal Neck Neck: Yes normal visual inspection Resp Effort & Inspection: decreased respiratory effort Auscultation: clear to auscultation bilaterally Cardio Rate: regular rate Rhythm: regular rhythm Skin General skin exam: no rashes or lesions noted and elasticity normal Course Course Course Narrative: 10:30 AMTemp noted 102.3 rectally, this point will do blood culture, lactic acid, administer IV fluids 30 cc/kilos (he waits about the 57 kilos we ordered 2 L) antibiotic ordered Reevaluation(s) Reevaluation #1: Patient became more obtunded, tachypneic unable to control is secretion decision to intubate. He was intubated with RSI 20 etomidate 100 of sux at the 1st attempt chest x-ray to follow Time: 11:07 Medications Administered Generic Name Dose Route Start Last Admin Trade Name Freq PRN Reason Stop Dose Admin Chlorhexidine Gluconate 15 ml 03/15/23 11:45 03/15/23 11:46 Chlorhexidine Gluc Oral Rinse 15 Ml Mouthwash BUCCAL Not Given Q8H MATTY Heparin Sodium (Porcine) 5,000 unit 03/15/23 11:45 03/15/23 12:52 Heparin Sodium,Porcine 5,000 Unit/Ml Vial SUBCUT Not Given Q8H MATTY Propofol 1,000 mg in 100 mls @ 0 mls/hr 03/15/23 11:15 03/15/23 13:40 Diprivan IVCONT 20 mcg/kg/min .Q0M MATTY 6.95 mls/hr Titration Protocol Per Protocol Norepinephrine Bitartrate 8 mg in 250 mls @ 0 mls/hr 03/15/23 12:15 03/15/23 13:30 Levophed IV 0 mcg/kg/min .Q0M MATTY 0 mls/hr Titration Protocol Per Protocol Discontinued Medications Generic Name Dose Route Start Last Admin Trade Name Freq PRN Reason Stop Dose Admin Acetaminophen 650 mg 03/15/23 10:28 03/15/23 11:43 Acetaminophen Supp 650 Mg Supp.Rect ID 03/15/23 10:29 Not Given ONCE ONE Fentanyl 50 mcg 03/15/23 12:25 03/15/23 12:29 Fentanyl Citrate/Pf 100 Mcg/2 Ml Vial IVPUSH 03/15/23 12:26 50 mcg ONCE ONE Administration Protocol Sodium Chloride 1,000 mls @ 999 mls/hr 03/15/23 10:15 03/15/23 12:30 Ns IVCONT 03/15/23 11:15 Infused .Q1H1M MATTY Infusion Cefepime HCl 2 gm/ Sodium 50 mls @ 100 mls/hr 03/15/23 10:27 03/15/23 12:27 Chloride IV 03/15/23 10:56 Infused ONCE ONE Infusion Vancomycin HCl 1,250 mg/ 250 mls @ 166.667 mls/hr 03/15/23 10:27 03/15/23 14:55 Sodium Chloride IV 03/15/23 11:56 Infused ONCE ONE Infusion Sodium Chloride 1,000 mls @ 999 mls/hr 03/15/23 10:30 03/15/23 14:55 Ns IVCONT 03/15/23 11:30 Infused .Q1H1M MATTY Infusion Amiodarone HCl 150 mg in 100 mls @ 600 mls/hr 03/15/23 13:55 03/15/23 14:55 Nexterone IV 03/15/23 14:04 Infused ONCE ONE Infusion Procedures Intubation Time out performed: Yes sedative: Etomidate Mg Given: 20 paralytic: Succinylcholine Mg Given: 100 Laryngoscope: Porsche Assist Device Used: fiber optic device ET Tube Size: 7.5 ET Tube Uncuffed: No Tube Placement Confirmation: visualized tube passing through cords and confirmation by capnometry Patient Tolerated Procedure: well Intubation Complications: none Medical Decision Making Medical Decision Making [facility] Narrative: Patient presented with altered mental status fever tachycardia he was intubated for weight rotation I did check with the PCP Dr. Taras Prescott the patient was a full code, therefore was intubated with RSI blood culture and antibiotic administered case was discussed with the intensive care provider Differential Diagnosis Differential Diagnoses: The differential diagnosis associated with the presentation includes Pneumonias/sepsis/urosepsis Admission/Observation Consideration of admission/observation: Escalation of care including admission/observation considered Consult Healthcare Provider Management of the patient was discussed with: Hand Tennis Ball Coverer I discussed the case with the PCP Dr. Grajeda's kevin and the college dean Dr. Aparicio Lab Data [facility] Lab Attestation statement: I reviewed the patient's lab results. 03/15/23 10:17 03/15/23 10:17 Labs: Lab Results 03/15/23 03/15/23 03/15/23 Range/Units 10:17 10:17 10:17 WBC 22.3 H (4.8-10.8) X10*3/uL RBC 5.40 (4.60-5.80) X10*6/uL Hgb 15.3 (14.0-18.0) g/dl Hct 50.3 (42.0-52.0) % MCV 93.1 (80.0-98.0) fL MCH 28.3 (27.0-33.0) pg MCHC 30.4 L (31.0-36.0) g/dl RDW 15.0 (11.0-16.0) % Plt Count 382 (160-400) X10*3/uL MPV 11.4 (9.4-12.4) fL Immature Gran % (Auto) 0.6 H (0.0-0.4) % Neut % (Auto) 84.7 H (45-73) % Lymph % (Auto) 6.7 L (20-40) % [place] % (Auto) 7.6 (2-11) % Eos % (Auto) 0.0 (0-4) % Baso % (Auto) 0.4 (0-2) % Lymph # (Auto) 1.5 (1.2-4.9) X10*3/uL [place] # (Auto) 1.7 H (0.1-1.2) X10*3/uL Eos # (Auto) 0.0 (0.0-0.4) X10*3/uL Baso # (Auto) 0.1 (0.0-0.2) X10*3/uL Abs Immat Gran (auto) 0.14 H (0.00-0.03) X10*3/uL Absolute Neuts (auto) 18.9 H (2.0-8.3) x10*3/uL Absolute Nucleated RBC 0.000 (0.0-0.012) X10*3/uL Nucleated RBC % (auto) 0.0 (0.0-0.2) /100WBC Smear Tech's Comments VERIFIED PT (10.0-13.1) SEC INR (0.9-1.1) O2 Saturation % ABG pH at Pt Temp (7.35-7.45) ABG pCO2 at Pt Temp (32-45) mmHg ABG pO2 at Pt Temp (83-108) mmHg ABG HCO3 (22-26) mmol/L ABG Base Excess (Actual) mmol/L Sodium 153 H (135-145) mmol/L Potassium 3.3 D (3.3-5.1) mmol/L Chloride 113 H (96-108) mmol/L Carbon Dioxide 26 (22-29) mmol/L Anion Gap 17 (12-20) BUN 45 H (9-16) mg/dL Creatinine 1.57 H (0.5-1.4) mg/dL Estim Creat Clear Calc 29.1 Estimated GFR 42 POC Glucose (60-115) mg/dL Random Glucose 206 H (60-115) mg/dL Lactic Acid (0.5-2.0) mmol/L Calcium 10.8 H D (8.4-10.2) mg/dL Total Bilirubin 1.1 H (0.0-1.0) mg/dL AST 33 (5-37) U/L ALT 20 (0-40) U/L Alkaline Phosphatase 163 H (39-117) U/L Troponin I High Sens 24.8 D (<3.5-35.0) ng/L Total Protein 7.5 (6.5-8.0) g/dL Albumin 3.3 L (3.5-5.0) g/dL 03/15/23 03/15/23 03/15/23 Range/Units 10:17 10:28 10:36 WBC (4.8-10.8) X10*3/uL RBC (4.60-5.80) X10*6/uL Hgb (14.0-18.0) g/dl Hct (42.0-52.0) % MCV (80.0-98.0) fL MCH (27.0-33.0) pg MCHC (31.0-36.0) g/dl RDW (11.0-16.0) % Plt Count (160-400) X10*3/uL MPV (9.4-12.4) fL Immature Gran % (Auto) (0.0-0.4) % Neut % (Auto) (45-73) % Lymph % (Auto) (20-40) % [place] % (Auto) (2-11) % Eos % (Auto) (0-4) % Baso % (Auto) (0-2) % Lymph # (Auto) (1.2-4.9) X10*3/uL [place] # (Auto) (0.1-1.2) X10*3/uL Eos # (Auto) (0.0-0.4) X10*3/uL Baso # (Auto) (0.0-0.2) X10*3/uL Abs Immat Gran (auto) (0.00-0.03) X10*3/uL Absolute Neuts (auto) (2.0-8.3) x10*3/uL Absolute Nucleated RBC (0.0-0.012) X10*3/uL Nucleated RBC % (auto) (0.0-0.2) /100WBC Smear Tech's Comments PT 11.9 (10.0-13.1) SEC INR 1.0 (0.9-1.1) O2 Saturation % ABG pH at Pt Temp (7.35-7.45) ABG pCO2 at Pt Temp (32-45) mmHg ABG pO2 at Pt Temp (83-108) mmHg ABG HCO3 (22-26) mmol/L ABG Base Excess (Actual) mmol/L Sodium (135-145) mmol/L Potassium (3.3-5.1) mmol/L Chloride (96-108) mmol/L Carbon Dioxide (22-29) mmol/L Anion Gap (12-20) BUN (9-16) mg/dL Creatinine (0.5-1.4) mg/dL Estim Creat Clear Calc Estimated GFR POC Glucose 96 (60-115) mg/dL Random Glucose (60-115) mg/dL Lactic Acid 4.8 H* (0.5-2.0) mmol/L Calcium (8.4-10.2) mg/dL Total Bilirubin (0.0-1.0) mg/dL AST (5-37) U/L ALT (0-40) U/L Alkaline Phosphatase (39-117) U/L Troponin I High Sens (<3.5-35.0) ng/L Total Protein (6.5-8.0) g/dL Albumin (3.5-5.0) g/dL 03/15/23 Range/Units 10:42 WBC (4.8-10.8) X10*3/uL RBC (4.60-5.80) X10*6/uL Hgb (14.0-18.0) g/dl Hct (42.0-52.0) % MCV (80.0-98.0) fL MCH (27.0-33.0) pg MCHC (31.0-36.0) g/dl RDW (11.0-16.0) % Plt Count (160-400) X10*3/uL MPV (9.4-12.4) fL Immature Gran % (Auto) (0.0-0.4) % Neut % (Auto) (45-73) % Lymph % (Auto) (20-40) % [place] % (Auto) (2-11) % Eos % (Auto) (0-4) % Baso % (Auto) (0-2) % Lymph # (Auto) (1.2-4.9) X10*3/uL [place] # (Auto) (0.1-1.2) X10*3/uL Eos # (Auto) (0.0-0.4) X10*3/uL Baso # (Auto) (0.0-0.2) X10*3/uL Abs Immat Gran (auto) (0.00-0.03) X10*3/uL Absolute Neuts (auto) (2.0-8.3) x10*3/uL Absolute Nucleated RBC (0.0-0.012) X10*3/uL Nucleated RBC % (auto) (0.0-0.2) /100WBC Smear Tech's Comments PT (10.0-13.1) SEC INR (0.9-1.1) O2 Saturation 91.0 % ABG pH at Pt Temp 7.47 H (7.35-7.45) ABG pCO2 at Pt Temp 24 L (32-45) mmHg ABG pO2 at Pt Temp 66 L (83-108) mmHg ABG HCO3 17 L (22-26) mmol/L ABG Base Excess (Actual) -3.8 mmol/L Sodium (135-145) mmol/L Potassium (3.3-5.1) mmol/L Chloride (96-108) mmol/L Carbon Dioxide (22-29) mmol/L Anion Gap (12-20) BUN (9-16) mg/dL Creatinine (0.5-1.4) mg/dL Estim Creat Clear Calc Estimated GFR POC Glucose (60-115) mg/dL Random Glucose (60-115) mg/dL Lactic Acid (0.5-2.0) mmol/L Calcium (8.4-10.2) mg/dL Total Bilirubin (0.0-1.0) mg/dL AST (5-37) U/L ALT (0-40) U/L Alkaline Phosphatase (39-117) U/L Troponin I High Sens (<3.5-35.0) ng/L Total Protein (6.5-8.0) g/dL Albumin (3.5-5.0) g/dL ABG Data Attestation ABG: I personally reviewed and interpreted this ABG as follows: Interpretation: Hypoxia Independent Interpretation I performed an independent interpretation of an: Plain X-Ray and CT Scan Interpretation: Present episode the chest x-ray Radiology Impression Discussion of test interpretation with radiology: I have reviewed the radiologist's reading. Independent Historian Dr Prescott and medical record from [place] External Record Review correction record Chronic Conditions dementia Critical Care Time Critical Care Time Critical Care Time: Yes Total Critical Care Time: 60 Attestation: taking care of the pt talking to ICU attending/EMS Discharge Plan Discharge Clinical Impression: Respiratory failure, Sepsis Patient Disposition: Admitted As Inpatient Interventions: Admission Worksheet (ED) Last Done: 03/15/23 13:38 Discharge Date/Time: 03/15/23 13:39
--- NOTE | 2023-03-15 10:19 | ECG_ITS ---
Test Reason : ams Blood Pressure : / mmHG Vent. Rate : 145 BPM Atrial Rate : 145 BPM P-R Int : 122 ms QRS Dur : 072 ms QT Int : 280 ms P-R-T Axes : 069 088 019 degrees QTc Int : 434 ms Sinus tachycardia Septal infarct (cited on or before 11-FEB-2022) ST & T wave abnormality, consider inferior ischemia Abnormal ECG When compared with ECG of 08-FEB-2023 15:50, T wave inversion now evident in Inferior leads Nonspecific T wave abnormality now evident in Anterior leads Referred By: Nick Rodríguez Electronically Signed By:Jimmy Salmeron
[2023-03-15 10:28] LABS: Basophils Absolute Auto 0.1 X10*3/uL (0.0-0.2); Basophils Percent Auto 0.4 % (0-2); Hematocrit 50.3 % (42.0-52.0); Hemoglobin 15.3 g/dl (14.0-18.0); Imm Gran Abs Auto 0.14 X10*3/uL (0.00-0.03); Imm Gran Pct Auto 0.6 % (0.0-0.4); Lymphocytes Absolute Auto 1.5 X10*3/uL (1.2-4.9); Lymphocytes Percent Auto 6.7 % (20-40); MANUAL DIFF FLAG SCAN; Mean Corpuscular HGB Conc 30.4 g/dl (31.0-36.0); Mean Corpuscular Hemoglobin 28.3 pg (27.0-33.0); Mean Corpuscular Volume 93.1 fL (80.0-98.0); Mean Platelet Volume 11.4 fL (9.4-12.4); Monocytes Absolute Auto 1.7 X10*3/uL (0.1-1.2); Monocytes Percent Auto 7.6 % (2-11); Neutrophils Absolute Auto 18.9 x10*3/uL (2.0-8.3); Neutrophils Percent Auto 84.7 % (45-73); Platelet Count 382 X10*3/uL (160-400); SCAN SMEAR FLAG 1; White Blood Count 22.3 X10*3/uL (4.8-10.8)
[2023-03-15 10:31] LABS: Glucose, Whole Blood 96 mg/dL (60-115)
[2023-03-15 10:36] LABS: Prothrombin Time 11.9 SEC (10.0-13.1)
[2023-03-15 10:51] LABS: Alanine Aminotransferase 20 U/L (0-40); Albumin Level 3.3 g/dL (3.5-5.0); Alkaline Phosphatase 163 U/L (39-117); Anion Gap 17 (12-20); Aspartate Amino Transferase 33 U/L (5-37); Bilirubin Total 1.1 mg/dL (0.0-1.0); Blood Urea Nitrogen 45 mg/dL (9-16); Calcium 10.8 mg/dL (8.4-10.2); Carbon Dioxide 26 mmol/L (22-29); Chloride 113 mmol/L (96-108); Creatinine Clr Calc Pharmacy 29.1; Estimated Glomerular Filt Rate 42; Glucose Random 206 mg/dL (60-115); Potassium 3.3 mmol/L (3.3-5.1); Sodium 153 mmol/L (135-145); Total Protein 7.5 g/dL (6.5-8.0)
[2023-03-15 10:51] LABS: ABG Base Excess -3.8 mmol/L; ABG HCO3 17 mmol/L (22-26); ABG pCO2 24 mmHg (32-45); ABG pH 7.47 (7.35-7.45); ABG pO2 66 mmHg (83-108)
[2023-03-15 10:54] LABS: Troponin-I High Sensitivity 24.8 ng/L (<3.5-35.0)
--- NOTE | 2023-03-15 10:56 | PC.NURSE ---
pt arrived via ems from facility; declining over past weeks/months worse today. appeared cyanotic, tachypneic, tachycardic, febrile; unable to obtain o2 sat; pt came in on 4L NC; co2 end tital 14. pt had fetanyl patch on L. upper back, removal ordered by Dr. Rodríguez, removed by this RN witnessed by sravanthi PARIKH. iv established.
[2023-03-15 11:01] LABS: SLIDE REVIEW VERIFIED
[2023-03-15] MEDS: 0.9 % Sodium Chloride 1,000 ML 999 ML IVCONT ×2 (11:10→11:21)
[2023-03-15 11:11] LABS: Lactic Acid 4.8 mmol/L (0.5-2.0)
[2023-03-15] MEDS: cefEPime HCl 2 GM in 0.9 % Sodium Chloride 50 ML IV (11:37)
[2023-03-15] MEDS: vancomycin HCL 1,250 MG in 0.9 % Sodium Chloride 250 ML 166.67 MG IV (11:42)
--- NOTE | 2023-03-15 11:43 | PC.NURSE ---
PO acetaminophen not given. Pt intubated.
[2023-03-15] MEDS: propofoL 1,000 MG/100 ML VIAL 10.42 MG IVCONT (11:58)
--- NOTE | 2023-03-15 12:02 | PC.NURSE ---
Propofol paused BP: 73/48. Dr. Rodríguez aware.
[2023-03-15] MEDS: Norepinephrine Bitartrate/D5W 8 MG/250 ML PLAST..BAG 5.43 MG IV (12:15)
[2023-03-15] MEDS: fentaNYL citrate/PF 100 MCG/2 ML VIAL 50 MCG IVPUSH (12:29)
--- NOTE | 2023-03-15 12:49 | MHC.CM.PN ---
Pt admitted to ICU from [facility] where he is a LTC resident. Pt not able to participate in CM assessment: Information obtained from EMR: Call placed to [facility] - transferred to pt's unit x4 but no answer. Call placed to pts legal guardian Litzy Epstein: message left. Call placed to [employer]: guardianship to be emailed to this CM. Pt is a full code: unsure of his baseline functional abilities: will f/u w/[facility]. IMM to be mailed to guardianCindi BENOIT transport: Medicare: CM to follow
[2023-03-15 13:47] LABS: Reflex Lactate? Lactic Acid Added
[2023-03-15] MEDS: Lactated Ringers 1,000 ML 999 ML IV (13:50)
[2023-03-15] MEDS: Amiodarone/Dextrose 150 MG/100 ML PLAST..BAG 600 MG IV (13:56)
--- NOTE | 2023-03-15 14:03 | PHA.MEDREC ---
Pharmacy Consult ? Medication Reconciliation Pharmacy has completed the medication reconciliation. Patient from [facility].
[2023-03-15 14:24] LABS: ABG Refer to POC result
[2023-03-15 14:54] LABS: Appearance Urine Turbid; Color Urine Yellow; Glucose Urine UA >=1000 mg/dL (Negative); Leukocyte Esterase Urine Small (1+) (Negative); Nitrite Urine Negative (Negative); PH 5.5 (5.0-9.0); Specific Gravity - Urine >= 1.030 (1.005-1.025); UMIC TRIGGER UA YES; Urine Blood Small (1+) (Negative); Urine Ketones Trace mg/dL (Negative); Urine Protein 30 (1+) mg/dL (Neg-Trace)
[2023-03-15 15:02] LABS: Bacteria Urine None Seen (None Seen); Granular Casts Urine Present; Hyaline Casts Urine >20 /LPF (0-2); RBC Urine >20 /HPF (0-2); WBC Urine >50 /HPF (0-5)
--- NOTE | 2023-03-15 16:58 | PC.NURSE ---
PT ARRIVED TO THE UNIT FROM ER ON A STRETCHER AT APPROXIMATELY 1330 ON IV LEVOPHED GTT AT 0.05MCG/KG/MIN THROUGH 22G IV IN THE LFA. PT'S ETT 7.5, NOW AT 25CM AT LIP (ADVANCED 2CM BY RT PER MD'S ORDER UPON REVIEWING CXR). PT'S BP ELEVATED AND HR IN THE 130s AT APPROXIMATELY 1333; PER MD, PAUSED IV LEVOPHED GTT AND RESUMED IV PROPOFOL AT 10MCG/KG/MIN THROUGH 18G PERIPHERAL IV IN THE RAC. LFA PERIPHERAL UNABLE TO FLUSH, REMOVED. PT'S HR IN THE 160s, LOADING DOSE OF AMIODARONE ADIMINISTERED AT 1358 PER MD'S ORDER THROUGH A NEW PERIPHERAL ACCESS 20G IV IN THE RFA. UNABLE TO OBTAIN ABG, RT AND MD TRIED, LABS ALSO UNABLE TO OBTAIN, MD AWARE. 1L LR INFUSED AT 999MG/HR PER ORDER. PT'S HR IMPROVED TO THE 110S; TRUE O2 SAT UNABLE TO OBTAIN DUE TO COOL EXTREMITIES; UPON BAGGING, O2 IN THE MID TO HIGH 80s ON 100% FIO2, MD AWARE. ORDERS TO CT CHEST PLACED BY MD; MD AWARE OF POOR VITALs, OKAYED TO BRING TO CT. RT, TRANSPORT, AND THIS PERSONAL INJURY ATTORNEY BROUGHT PT DOWN TO CT AT APPROXIMATELY 1430 WITH NO COMPLICATIONS ON ROUTE EXCEPT 18G IV REMOVED ; RETURNED TO UNIT AT APPROXIMATELY 1450. PT SETTLED BACK IN BED; INITIALLY HR IN THE 80s-100s, SLOWLY DERRICK DOWN TO 40s AT APPROXIMATELY 1500; MD AWARE AND AT BEDSIDE, PAUSED PROPOFOL AND RESUMED LEVOPHED AT 0.05MCG/KG/ MIN PER ORDER. AT 1504, PT ASYSTOLE ON MONITOR, PT PULSELESS; MD LEHMAN STARTED COMPRESSIONS, RT STARTED BAGGING AT BEDSIDE; SILK SCREEN PRINTER HELPER AND DIRECTOR CAME AT BEDSIDE, ASSISTING; FOLLOWED ACLS PER PROTOCOL (SEE CODE SHEET); AFTER 5 ROUNDS OF CPR AND 4 ROUNDS OF EPI, PT ACHIEVED ROSC AT 1518; THREADY PULSE WITH DOPPLER, CONFIRMED POSITIVE PULSE BY MD WITH US. PT BACK ON VENT AT 100% AND HR IN THE 90s-100s. AT 1530, PT'S HR SLOWING IN THE 50s- 60s. AT 1532, PT ASYSTOLE AGAIN AND PULSELESS; AWARE CALLED CODE AND DISCONTINUED CODE DUE TO MEDICAL FUTILITY . PRONOUNCED PT AT 1532. GUARDIAN CONTACTED BY . [employer] CALLED AND NOTIFIED AT 1552 AND SPOKE WITH RAY; CASE REFERENCE PROVIDED WAS #[id number]. RETAIL SALES REPRESENTATIVE DENIED CASE .
--- NOTE | 2023-03-15 17:12 | PM.CCHP ---
History of Present Illness Date of Service: 03/15/23 Chief Complaint: Acute respiratory failure 83-year-old gentleman, resident of [facility], with underlying history of vascular dementia, CVA with residual deficits including dysphagia, diabetes mellitus, hypothyroidism, COPD, recent admissions for dysphagia and dehydration admitted on 03/15/2023 from [facility] secondary to worsening lethargy. On ER evaluation patient hypoxic and lethargic intubated and transferred to intensive care unit. Arrival to intensive care unit patient hypotensive requiring pressor support, tachycardic to 200s, and requiring FiO2 of 80% on ventilatory support. After initial stabilization patient had CT head showing no acute findings, CT chest demonstrated right lower lobe infiltrate, and CT abdomen/pelvis with evidence of bowel distension and obstipation/constipation. Shortly after returning from imaging patient with development of refractory hypoxia and bradycardia deteriorating to asystole with CPR/ACLS started immediately. Returned spontaneous circulation initially chest after 5 rounds of CPR, however patient shortly with resumption of bradycardia deteriorating again to asystole with resuscitation measures deemed futile and patient pronounced at 15:32. Review of Systems Review of Systems: Yes unobtainable due to endotracheal tube PMFSH Past Medical History Medical History (Updated 03/15/23 @ 17:19 by Eliot Aparicio MD) BPH w urinary obs/LUTS Cerebral infarction Cognitive communication deficit COPD (chronic obstructive pulmonary disease) Depressive disorder Diabetes Dysphagia Hearing loss Hemiplegia HTN (hypertension) Hyperlipemia Vascular dementia Social History Social History Household Members: None Housing: Custodial Do you presently have visiting nurse or other home services: No Unable to assess alcohol history related to: Unknown Alcohol intake: unknown Patient Tobacco Use Status: Tobacco use Unknown Use of substances other than those prescribed or required for medical reasons: Unknown Substance Use Type: Unknown Last Used Substance: Unknown Advance Directives: No service: No Current occupational status: disabled Meds Allergies Allergy/AdvReac Type Severity Reaction Status Date / Time No Known Allergies Allergy Intermediate UNKNOWN Verified 01/22/23 12:01 [NO KNOWN ALLERGIES] Active Medications: Current Medications Chlorhexidine Gluconate (Chlorhexidine Gluc Oral Rinse 15 Ml Mouthwash) 15 ml BUCCAL Q8H MATTY Last Admin: 03/15/23 11:46 Dose: Not Given Famotidine (Famotidine/Pf 20 Mg/2 Ml Vial) 20 mg IVPUSH DAILY MATTY Heparin Sodium (Porcine) (Heparin Sodium,Porcine 5,000 Unit/Ml Vial) 5,000 unit SUBCUT Q8H MATTY Last Admin: 03/15/23 12:52 Dose: Not Given Propofol (Diprivan) 1,000 mg in 100 mls @ 0 mls/hr IVCONT .Q0M MATTY; Protocol Last Titration: 03/15/23 15:35 Dose: Infused Norepinephrine Bitartrate (Levophed) 8 mg in 250 mls @ 0 mls/hr IV .Q0M MATTY; Protocol Last Titration: 03/15/23 15:35 Dose: Infused Cefepime HCl 1 gm/ Sodium (Chloride) 50 mls @ 100 mls/hr IV Q12H MATTY Insulin Human Lispro (Insulin Lispro 100 Unit/Ml 3 Ml Vial) 0 unit SUBCUT Q6H MATTY; Protocol Last Admin: 03/15/23 16:07 Dose: Not Given Home Medications Medication Instructions Recorded Confirmed Last Taken Type albuterol sulfate 90 mcg/actuation 2 puff inhalation BID 08/13/20 03/15/23 01/26/23 06:00 History aerosol inhaler (ProAir HFA) aspirin 81 mg chewable tablet 81 mg PO DAILY 08/13/20 03/15/23 01/26/23 History atorvastatin 40 mg tablet (Lipitor) 40 mg PO BEDTIME 08/13/20 03/15/23 01/25/23 History docusate sodium 100 mg capsule 200 mg PO DAILY 08/13/20 03/15/23 01/26/23 History (Colace) insulin aspart U-100 100 unit/mL 1 sliding scale dose subcut 08/13/20 03/15/23 01/25/23 History subcutaneous solution USEASDIRECTD lisinopril 10 mg tablet 10 mg PO DAILY 08/13/20 03/15/23 01/26/23 History melatonin 3 mg tablet 3 mg PO BEDTIME 08/13/20 03/15/23 01/25/23 History sennosides 8.6 mg capsule (senna) 8.6 mg PO BEDTIME 08/13/20 03/15/23 01/25/23 History acetaminophen 325 mg tablet 650 mg PO Q6H PRN Fever Or Pain 01/26/23 03/15/23 Unknown History (Tylenol) aluminum-mag hydroxide-simethicone 5 ml PO Q4H PRN Heartburn 01/26/23 03/15/23 Unknown History 200 mg-200 mg-20 mg/5 mL oral susp bisacodyl 10 mg rectal suppository 10 mg MN DAILY PRN Constipation 01/26/23 03/15/23 Unknown History dapagliflozin propanediol 10 mg 10 mg PO DAILY 01/26/23 03/15/23 01/26/23 History tablet (Farxiga) dulaglutide 1.5 mg/0.5 mL 1.5 mg subcut WE@0900 01/26/23 03/15/23 Unknown [facility] levothyroxine 25 mcg tablet 25 mcg PO DAILY@0601/26/23 03/15/23 01/26/23 History metoprolol succinate 25 mg 75 mg PO BEDTIME 01/26/23 03/15/23 01/25/23 History tablet,extended release 24 hr peg [id number] 1 1 drp ophthalmic (eye) TID PRN Dry 01/26/23 03/15/23 Unknown History %-0.2 %-0.2 % eye drops Eyes (Artificial Tears ([id number])) sennosides 8.6 mg tablet (senna) 8.6 mg PO DAILY PRN Constipation 01/26/23 03/15/23 Unknown History sodium phosphates 19 gram-7 118 ml MN DAILY PRN Constipation 01/26/23 03/15/23 Unknown History gram/118 mL enema (Fleet Enema) collagenase clostridium histo. 250 1 appl topical DAILY 02/08/23 03/15/23 Unknown History unit/gram topical ointment (Santyl) collagenase clostridium histo. 250 1 appl topical DAILY PRN Wound Care 02/08/23 03/15/23 Unknown History unit/gram topical ointment (Santyl) oxycodone-acetaminophen 5 mg-325 1 tab PO Q6H PRN Moderate Pain 02/08/23 03/15/23 Unknown History mg tablet (Scale Score 5-6) Calamine Skin Protectant 1 appl topical BID 03/15/23 03/15/23 Unknown History Dextrose Solution 5% See Rx Instructions .Route .COMPLEX 03/15/23 03/15/23 Unknown History fentanyl 25 mcg/hr transdermal 1 patch transdermal Q72H 03/15/23 03/15/23 Unknown History patch Physical Exam Vital Signs: Vital Signs: Last Vital Signs Temp 102.3 F H 03/15/23 10:20 Pulse 0 L 03/15/23 15:35 Resp 38 H 03/15/23 11:58 BP 0/0 L 03/15/23 15:35 Pulse Ox 88 L 03/15/23 13:36 O2 Del Method Mechanical Ventil ation 03/15/23 13:36 FiO2 100 03/15/23 15:24 BMI result Body Mass Index 20.4 Results Labs 03/15/23 10:17 03/15/23 10:17 Labs: Laboratory Results - last 24 hr 03/15/23 03/15/23 03/15/23 10:17 10:17 10:17 MCV 93.1 MCH 28.3 MCHC 30.4 L RDW 15.0 Plt Count 382 MPV 11.4 Immature Gran % (Auto) 0.6 H Neut % (Auto) 84.7 H Lymph % (Auto) 6.7 L [place] % (Auto) 7.6 Eos % (Auto) 0.0 Baso % (Auto) 0.4 Lymph # (Auto) 1.5 [place] # (Auto) 1.7 H Eos # (Auto) 0.0 Baso # (Auto) 0.1 Abs Immat Gran (auto) 0.14 H Absolute Neuts (auto) 18.9 H Absolute Nucleated RBC 0.000 Nucleated RBC % (auto) 0.0 Smear Tech's Comments VERIFIED PT INR O2 Saturation ABG pH at Pt Temp ABG pCO2 at Pt Temp ABG pO2 at Pt Temp ABG HCO3 ABG Base Excess (Actual) Anion Gap 17 Estim Creat Clear Calc 29.1 Estimated GFR 42 POC Glucose Random Glucose 206 H Lactic Acid Calcium 10.8 H D Total Bilirubin 1.1 H AST 33 ALT 20 Alkaline Phosphatase 163 H Troponin I High Sens 24.8 D Total Protein 7.5 Albumin 3.3 L Urine Color Urine Appearance Urine pH Ur Specific [place] Urine Protein Urine Glucose (UA) Urine Ketones Urine Blood Urine Nitrite Ur Leukocyte Esterase Urine RBC Urine WBC Ur Squamous Epith Cells Urine Bacteria Hyaline Casts Granular Casts Urine Yeast 03/15/23 03/15/23 03/15/23 10:17 10:28 10:36 MCV MCH MCHC RDW Plt Count MPV Immature Gran % (Auto) Neut % (Auto) Lymph % (Auto) [place] % (Auto) Eos % (Auto) Baso % (Auto) Lymph # (Auto) [place] # (Auto) Eos # (Auto) Baso # (Auto) Abs Immat Gran (auto) Absolute Neuts (auto) Absolute Nucleated RBC Nucleated RBC % (auto) Smear Tech's Comments PT 11.9 INR 1.0 O2 Saturation ABG pH at Pt Temp ABG pCO2 at Pt Temp ABG pO2 at Pt Temp ABG HCO3 ABG Base Excess (Actual) Anion Gap Estim Creat Clear Calc Estimated GFR POC Glucose 96 Random Glucose Lactic Acid 4.8 H* Calcium Total Bilirubin AST ALT Alkaline Phosphatase Troponin I High Sens Total Protein Albumin Urine Color Urine Appearance Urine pH Ur Specific [place] Urine Protein Urine Glucose (UA) Urine Ketones Urine Blood Urine Nitrite Ur Leukocyte Esterase Urine RBC Urine WBC Ur Squamous Epith Cells Urine Bacteria Hyaline Casts Granular Casts Urine Yeast 03/15/23 03/15/23 10:42 Unknown MCV MCH MCHC RDW Plt Count MPV Immature Gran % (Auto) Neut % (Auto) Lymph % (Auto) [place] % (Auto) Eos % (Auto) Baso % (Auto) Lymph # (Auto) [place] # (Auto) Eos # (Auto) Baso # (Auto) Abs Immat Gran (auto) Absolute Neuts (auto) Absolute Nucleated RBC Nucleated RBC % (auto) Smear Tech's Comments PT INR O2 Saturation 91.0 ABG pH at Pt Temp 7.47 H ABG pCO2 at Pt Temp 24 L ABG pO2 at Pt Temp 66 L ABG HCO3 17 L ABG Base Excess (Actual) -3.8 Anion Gap Estim Creat Clear Calc Estimated GFR POC Glucose Random Glucose Lactic Acid Calcium Total Bilirubin AST ALT Alkaline Phosphatase Troponin I High Sens Total Protein Albumin Urine Color Yellow Urine Appearance Turbid Urine pH 5.5 Ur Specific [place] >= 1.030 H Urine Protein 30 (1+) H Urine Glucose (UA) >=1000 H Urine Ketones Trace Urine Blood Small (1+) H Urine Nitrite Negative Ur Leukocyte Esterase Small (1+) H Urine RBC >20 H Urine WBC >50 H Ur Squamous Epith Cells 6-10 Urine Bacteria None Seen Hyaline Casts >20 Granular Casts Present Urine Yeast Present Imaging Radiologist's Impressions: Impressions Chest X-Ray 03/15/23 11:15 IMPRESSION: Endotracheal tube 8.4 cm above the eduar. Nasogastric tube tip projects over the distal thoracic esophagus and should be advanced into the stomach. Well-inflated lungs. Abdomen/Pelvis CT 03/15/23 15:13 IMPRESSION: Right lower lobe pneumonia. Diverticulosis. No evidence of diverticulitis. Constipation and mild dilatation of the colon or obstipation. No transition zone to suggest mechanical obstruction. Atherosclerotic disease. Galaviz catheter in the bladder. Bladder wall may be slightly thickened. The prostate gland is enlarged. Fleischner guidelines were followed. Chest CT 03/15/23 15:13 IMPRESSION: Right lower lobe pneumonia. Fleischner guidelines were followed. Head CT 03/15/23 15:13 IMPRESSION: No acute intracranial pathology. Volume loss with small vessel ischemic change. Assessment and Plan (1) Pulmonary aspiration: Status: Acute (2) Acute respiratory failure: Status: Acute (3) Dysphagia: Status: Acute (4) COPD (chronic obstructive pulmonary disease): Status: Acute (5) Failure to thrive in adult: Status: Acute (6) Diabetes: Status: Acute (7) Pressure injury of sacral region, unstageable: Status: Acute (8) Pressure injury of left heel, unstageable: Status: Acute (9) Cardiac arrest: Status: Acute Time Spent With Patient Time: Total time managing care of this patient today ____ minutes.
--- NOTE | 2023-03-15 17:19 | PM.DDS ---
Discharge Sum: Prov Provider Primary care physician: Taras Prescott, Discharge Sum: Diag Contributing Factors (1) Cardiac arrest: (2) Acute respiratory failure: (3) Pulmonary aspiration: (4) Dysphagia: (5) COPD (chronic obstructive pulmonary disease): (6) Failure to thrive in adult: (7) Diabetes: (8) Pressure injury of sacral region, unstageable: (9) Pressure injury of left heel, unstageable: Discharge Sum: Summary Date and Time Date of admission: 03/15/23 11:34 Date of : 03/15/23 Time of : 15:32 Summary Details: 83-year-old gentleman, resident of [facility], with underlying history of vascular dementia, CVA with residual deficits including dysphagia, diabetes mellitus, hypothyroidism, COPD, recent admissions for dysphagia and dehydration [facility]argy. On ER evaluation patient hypoxic and lethargic intubated and transferred to intensive care unit. Arrival to intensive care unit patient hypotensive requiring pressor support, tachycardic to 200s, and requiring FiO2 of 80% on ventilatory support. After initial stabilization patient had CT head showing no acute findings, CT chest demonstrated right lower lobe infiltrate, and CT abdomen/pelvis with evidence of bowel distension and obstipation/constipation. Shortly after returning from imaging patient with development of refractory hypoxia and bradycardia deteriorating to asystole with CPR/ACLS started immediately. Returned spontaneous circulation initially chest after 5 rounds of CPR, however patient shortly with resumption of bradycardia deteriorating again to asystole with resuscitation measures deemed futile and patient pronounced at 15:32. Additional Data Confirmation of as documented by pronouncing clinician: no pulse, no respirations, no heart sounds and pupils fixed and dilated Family: not available (Legal guardian notified) Attending physician: Eliot Aparicio MD Was code activated?: Yes garment alteration examiner notified?: Yes (Case declined, [place] Tosin)
== END 2023-03-15 18:00 | disposition expired | DRG 871 ==
LOC: HO.ED 11:14 → HO.EDOVER 11:38 → HO.ICU 12:04
PROVIDERS: Admitting Provider Internal Medicine Pulmonary Disease; Emergency Provider Emergency Medicine; PCP Hospitalist; Visit Provider Internal Medicine Pulmonary Disease
DX: A41.9 Sepsis, unspecified organism (principal); J96.01 Acute respiratory failure with hypoxia; T17.908A Unspecified foreign body in respiratory tract, part unspecified causing other injury, initial encounter; J44.9 Chronic obstructive pulmonary disease, unspecified; E03.9 Hypothyroidism, unspecified; E11.9 Type 2 diabetes mellitus without complications; F01.50 Vascular dementia, unspecified severity, without behavioral disturbance, psychotic disturbance, mood disturbance, and anxiety; R62.7 Adult failure to thrive; L89.150 Pressure ulcer of sacral region, unstageable; I46.9 Cardiac arrest, cause unspecified; K59.00 Constipation, unspecified; L89.620 Pressure ulcer of left heel, unstageable; I69.391 Dysphagia following cerebral infarction; R13.10 Dysphagia, unspecified; Z68.20 Body mass index [BMI] 20.0-20.9, adult; E86.0 Dehydration; Z79.1 Long term (current) use of non-steroidal anti-inflammatories (NSAID); Z79.82 Long term (current) use of aspirin; Z79.84 Long term (current) use of oral hypoglycemic drugs; Z79.890 Hormone replacement therapy; Z79.899 Other long term (current) drug therapy
CPT/HCPCS: 36415; 70450; 71045; 71250; 74176; 80053; 81001; 82803; 82947; 83605; 84484; 85025; 85610; 87040; 93005; 94002; 99285; J0171; J0283; J0330; J0692; J3010; J3371

== ENCOUNTER → 2023-03-15 10:19 | Outpatient (BNV) | payer MEDICARE, MEDICAID, SELFPAY | PROVIDERS: Admitting Provider Internal Medicine Pulmonary Disease; Emergency Provider Emergency Medicine; PCP Hospitalist; Visit Provider Internal Medicine Cardiovascular Disease | DX: R00.0 Tachycardia, unspecified (principal); R94.31 Abnormal electrocardiogram [ECG] [EKG] | CPT/HCPCS: 93010 ==

== ENCOUNTER → 2023-03-15 11:34 | Outpatient (BNV) | payer MEDICARE, MEDICAID, SELFPAY | PROVIDERS: Admitting Provider Internal Medicine Pulmonary Disease; Emergency Provider Emergency Medicine; PCP Hospitalist; Visit Provider Internal Medicine Pulmonary Disease | DX: T17.900A Unspecified foreign body in respiratory tract, part unspecified causing asphyxiation, initial encounter (principal); J96.00 Acute respiratory failure, unspecified whether with hypoxia or hypercapnia; R13.10 Dysphagia, unspecified; J44.9 Chronic obstructive pulmonary disease, unspecified; R62.7 Adult failure to thrive; E11.9 Type 2 diabetes mellitus without complications; L89.150 Pressure ulcer of sacral region, unstageable; L89.620 Pressure ulcer of left heel, unstageable; I46.9 Cardiac arrest, cause unspecified | CPT/HCPCS: 99239 ==